=== PATIENT | male | born 1950 | race Caucasian/White ===

== ENCOUNTER 2016-03-16 18:38 | Inpatient (IN) | payer MEDICARE, OTHER ==
[2016-03-16] MEDS ORDERED: ACETAMINOPHEN IV (For NPO) 1,000 MG in EMPTY BAG 1 BAG IVPB STA (19:07)
[2016-03-16] MEDS ORDERED: IPRATROPIUM-ALBUTEROL 3 ML NEB INHALATION STA (19:08)
[2016-03-16] MEDS ORDERED: SODIUM CHLORIDE 0.9% 1,000 ML IV STA ×2 (19:08→20:49)
--- NOTE | 2016-03-16 19:10 | ED ---
General Adult HPI - General Chief complaint: Shortness of Breath Stated complaint: ALBA Time Seen by Provider: 03/16/16 18:53 Source: patient, EMS, RN notes reviewed Mode of arrival: EMS Limitations: no limitations - History of Present Illness Initial comments: Patient is a pleasant 66-year-old male presenting to the emergency department with difficulty in breathing. Symptoms have progressed over a couple of days. Patient has had subjective fevers. Patient has had occasional cough. No chest pain. Patient denies history of chronic lung problems. No leg pain or leg swelling. - Related Data Home Medications Medication Instructions Recorded Confirmed Acetaminophen Tab [Tylenol Tab] 650 mg PO Q4H PRN 03/16/16 03/16/16 Albuterol Nebulized [Ventolin 2.5 mg INHALATION Q4H PRN 03/16/16 03/16/16 Nebulized] Aspirin EC [Ecotrin Low Dose] 81 mg PO HS 03/16/16 03/16/16 Bisacodyl [Dulcolax] 10 mg RECTAL DAILY PRN 03/16/16 03/16/16 DULoxetine HCL [Cymbalta] 30 mg PO DAILY 03/16/16 03/16/16 Diclofenac Sodium [Voltaren Gel] 2 gram TOPICAL BID 03/16/16 03/16/16 Docusate [Colace] 100 mg PO HS 03/16/16 03/16/16 Fluticasone Nasal [place] [Flonase 1 spray EA NOSTRIL BID 03/16/16 03/16/16 Nasal [place]] Furosemide [Lasix] 80 mg PO BID 03/16/16 03/16/16 Gabapentin [Neurontin] 900 mg PO Q8H 03/16/16 03/16/16 Isosorbide Mononitrate ER [Imdur] 30 mg PO DAILY 03/16/16 03/16/16 Ketoconazole 2% Shampoo [Nizoral] 1 applic TOPICAL MOTH 03/16/16 03/16/16 Lactulose 20 gm PO DAILY 03/16/16 03/16/16 Mag Hydrox/Al Hydrox/Simeth 30 ml PO HS 03/16/16 03/16/16 [Maalox] Mag Hydrox/Al Hydrox/Simeth 30 ml PO PC-TID PRN 03/16/16 03/16/16 [Maalox] Magnesium Hydroxide [Milk of 2,400 mg PO DAILY PRN 03/16/16 03/16/16 Magnesia] Melatonin 6 mg PO HS 03/16/16 03/16/16 Metoprolol Succinate (ER) [Toprol 50 mg PO DAILY 03/16/16 03/16/16 Xl] [place]-3 Fatty Acids/Fish Oil [Fish 2 cap PO BID 03/16/16 03/16/16 Oil 1,000 mg Softgel] Omeprazole [PriLOSEC] 20 mg PO DAILY 03/16/16 03/16/16 PARoxetine [Paxil] 10 mg PO DAILY 03/16/16 03/16/16 Potassium Chloride ER [K-Dur 10] 10 meq PO DAILY 03/16/16 03/16/16 Pravastatin Sodium [Pravachol] 40 mg PO HS 03/16/16 03/16/16 Sennosides/Docusate Sodium 2 tab PO HS 03/16/16 03/16/16 [Docusate Sodium-Senna Tablet] Simethicone [Gas-X] 250 mg PO HS 03/16/16 03/16/16 Tamsulosin HCl [Flomax] 0.4 mg PO DAILY 03/16/16 03/16/16 amLODIPine [Norvasc] 10 mg PO DAILY 03/16/16 03/16/16 clonazePAM [KlonoPIN] 0.5 mg PO HS 03/16/16 03/16/16 hydrALAZINE HCL [Apresoline] 50 mg PO Q8H 03/16/16 03/16/16 levETIRAcetam [Keppra] 250 mg PO Q8H 03/16/16 03/16/16 oxyCODONE-APAP 7.5-325MG [Percocet 1 tab PO Q6HR 03/16/16 03/16/16 7.5-325 mg] predniSONE [Deltasone] 20 mg PO HS 03/16/16 03/16/16 Allergies Allergy/AdvReac Type Severity Reaction Status Date / Time No Known Allergies Allergy Verified 03/16/16 19:30 Review of Systems ROS Statement: Those systems with pertinent positive or pertinent negative responses have been documented in the HPI. ROS Other: All systems not noted in ROS Statement are negative. Constitutional: Reports: fever, chills Eyes: Denies: eye pain ENT: Denies: ear pain Respiratory: Reports: cough, dyspnea Cardiovascular: Denies: chest pain Endocrine: Reports: fatigue Gastrointestinal: Denies: abdominal pain Genitourinary: Denies: dysuria Musculoskeletal: Denies: back pain Skin: Denies: rash Neurological: Denies: headache Past Medical History Past Medical History: COPD, CVA/TIA, Hyperlipidemia, Hypertension, Osteoarthritis (OA) Additional Past Medical History / Comment(s): right sided weakness Past Surgical History: Unable to Obtain Past Psychological History: Depression Smoking Status: Former smoker Past Alcohol Use History: None Reported Past Drug Use History: None Reported General Exam Limitations: no limitations General appearance: alert, in no apparent distress Head exam: Present: atraumatic Eye exam: Present: normal appearance, PERRL ENT exam: Present: mucous membranes dry Neck exam: Present: normal inspection Respiratory exam: Present: rales Cardiovascular Exam: Present: tachycardia GI/Abdominal exam: Present: soft. Absent: tenderness Extremities exam: Present: normal inspection. Absent: pedal edema, calf tenderness Neurological exam: Present: alert, other (Right hemiparesis, chronic from previous stroke per patient.) Psychiatric exam: Present: normal affect, normal mood Skin exam: Absent: rash Course Vital Signs 03/16/16 03/16/16 03/16/16 18:39 19:15 19:45 Temperature 100.0 F H Pulse Rate 108 H 99 102 H Respiratory 26 H 16 Rate Blood Pressure 146/87 144/77 140/76 O2 Sat by Pulse 88 L 93 L 93 L Oximetry 03/16/16 03/16/16 19:59 20:15 Temperature Pulse Rate 93 88 Respiratory Rate Blood Pressure 128/72 O2 Sat by Pulse 92 L Oximetry EKG Findings - EKG Comments: EKG Findings:: Sinus rhythm with a rate of 109. VA 226. QRS 114. QT 384. QTC 513. Left axis. Incomplete left bundle-branch block. Left ventricular hypertrophy. Nonspecific ST-T. Medical Decision Making - Medical Decision Making Patient reexamined and resting comfortably in bed. No obvious source of infection identified. Patient will be covered with antibiotics for possible aspiration pneumonia not visualized on chest x-ray today. Patient will provide IV fluids for dehydration and potassium replacement. Discussed in detail with practitioner Ave, who will admit for Dr. Rizo, covering for Dr. baum, who admits for Dr. Beltran. - Lab Data Result diagrams: 03/16/16 19:01 03/16/16 19:01 Lab Results 03/16/16 03/16/16 03/16/16 Range/Units 19: 19: 19:01 WBC 8.6 (3.8-10.6) k/uL RBC 5.17 (4.30-5.90) m/uL Hgb 13.9 (13.0-17.5) gm/dL Hct 42.7 (39.0-53.0) % MCV 82.6 (80.0-100.0) fL MCH 26.9 (25.0-35.0) pg MCHC 32.6 (31.0-37.0) g/dL RDW 13.8 (11.5-15.5) % Plt Count 294 (150-450) k/uL Neutrophils % 88 % Lymphocytes % 5 % Monocytes % 6 % Eosinophils % 0 % Basophils % 0 % Neutrophils # 7.6 (1.3-7.7) k/uL Lymphocytes # 0.4 L (1.0-4.8) k/uL Monocytes # 0.5 (0-1.0) k/uL Eosinophils # 0.0 (0-0.7) k/uL Basophils # 0.0 (0-0.2) k/uL PT (9.0-12.0) sec INR (<1.1) APTT (22.0-30.0) sec Sodium 141 (137-145) mmol/L Potassium 2.8 L* (3.5-5.1) mmol/L Chloride 87 L (98-107) mmol/L Carbon Dioxide 35 H (22-30) mmol/L Anion Gap 19 mmol/L BUN 78 H (9-20) mg/dL Creatinine 2.00 H (0.66-1.25) mg/dL Est GFR (MDRD) Af Amer 40 (>60 ml/min/1.73 sqM) Est GFR (MDRD) Non-Af 33 (>60 ml/min/1.73 sqM) Glucose 160 H (74-99) mg/dL Plasma Lactic Acid Ben (0.7-2.0) mmol/L Calcium 8.7 (8.4-10.2) mg/dL Total Bilirubin 0.9 (0.2-1.3) mg/dL AST 19 (17-59) U/L ALT 20 L (21-72) U/L Alkaline Phosphatase 87 (38-126) U/L Total Creatine Kinase 50 L (55-170) U/L CK-MB (CK-2) 0.3 (0.0-2.4) ng/mL CK-MB (CK-2) Rel Index 0.6 Troponin I 0.045 H* (0.000-0.034) ng/mL NT-Pro-B Natriuret Pep pg/mL Total Protein 7.3 (6.3-8.2) g/dL Albumin 4.0 (3.5-5.0) g/dL Urine Color Urine Appearance (Clear) Urine pH (5.0-8.0) Ur Specific [place] (1.001-1.035) Urine Protein (Negative) Urine Glucose (UA) (Negative) Urine Ketones (Negative) Urine Blood (Negative) Urine Nitrate (Negative) Urine Bilirubin (Negative) Urine Urobilinogen (<2.0) mg/dL Ur Leukocyte Esterase (Negative) 03/16/16 03/16/16 03/16/16 Range/Units 19:01 19:01 19:01 WBC (3.8-10.6) k/uL RBC (4.30-5.90) m/uL Hgb (13.0-17.5) gm/dL Hct (39.0-53.0) % MCV (80.0-100.0) fL MCH (25.0-35.0) pg MCHC (31.0-37.0) g/dL RDW (11.5-15.5) % Plt Count (150-450) k/uL Neutrophils % % Lymphocytes % % Monocytes % % Eosinophils % % Basophils % % Neutrophils # (1.3-7.7) k/uL Lymphocytes # (1.0-4.8) k/uL Monocytes # (0-1.0) k/uL Eosinophils # (0-0.7) k/uL Basophils # (0-0.2) k/uL PT 10.2 (9.0-12.0) sec INR 1.0 (<1.1) APTT 23.9 (22.0-30.0) sec Sodium (137-145) mmol/L Potassium (3.5-5.1) mmol/L Chloride (98-107) mmol/L Carbon Dioxide (22-30) mmol/L Anion Gap mmol/L BUN (9-20) mg/dL Creatinine (0.66-1.25) mg/dL Est GFR (MDRD) Af Amer (>60 ml/min/1.73 sqM) Est GFR (MDRD) Non-Af (>60 ml/min/1.73 sqM) Glucose (74-99) mg/dL Plasma Lactic Acid Ben 1.4 (0.7-2.0) mmol/L Calcium (8.4-10.2) mg/dL Total Bilirubin (0.2-1.3) mg/dL AST (17-59) U/L ALT (21-72) U/L Alkaline Phosphatase (38-126) U/L Total Creatine Kinase (55-170) U/L CK-MB (CK-2) (0.0-2.4) ng/mL CK-MB (CK-2) Rel Index Troponin I (0.000-0.034) ng/mL NT-Pro-B Natriuret Pep pg/mL Total Protein (6.3-8.2) g/dL Albumin (3.5-5.0) g/dL Urine Color Yellow Urine Appearance Clear (Clear) Urine pH 6.0 (5.0-8.0) Ur Specific [place] 1.013 (1.001-1.035) Urine Protein Trace H (Negative) Urine Glucose (UA) Negative (Negative) Urine Ketones Negative (Negative) Urine Blood Negative (Negative) Urine Nitrate Negative (Negative) Urine Bilirubin Negative (Negative) Urine Urobilinogen <2.0 (<2.0) mg/dL Ur Leukocyte Esterase Negative (Negative) 03/16/16 Range/Units 19:01 WBC (3.8-10.6) k/uL RBC (4.30-5.90) m/uL Hgb (13.0-17.5) gm/dL Hct (39.0-53.0) % MCV (80.0-100.0) fL MCH (25.0-35.0) pg MCHC (31.0-37.0) g/dL RDW (11.5-15.5) % Plt Count (150-450) k/uL Neutrophils % % Lymphocytes % % Monocytes % % Eosinophils % % Basophils % % Neutrophils # (1.3-7.7) k/uL Lymphocytes # (1.0-4.8) k/uL Monocytes # (0-1.0) k/uL Eosinophils # (0-0.7) k/uL Basophils # (0-0.2) k/uL PT (9.0-12.0) sec INR (<1.1) APTT (22.0-30.0) sec Sodium (137-145) mmol/L Potassium (3.5-5.1) mmol/L Chloride (98-107) mmol/L Carbon Dioxide (22-30) mmol/L Anion Gap mmol/L BUN (9-20) mg/dL Creatinine (0.66-1.25) mg/dL Est GFR (MDRD) Af Amer (>60 ml/min/1.73 sqM) Est GFR (MDRD) Non-Af (>60 ml/min/1.73 sqM) Glucose (74-99) mg/dL Plasma Lactic Acid Ben (0.7-2.0) mmol/L Calcium (8.4-10.2) mg/dL Total Bilirubin (0.2-1.3) mg/dL AST (17-59) U/L ALT (21-72) U/L Alkaline Phosphatase (38-126) U/L Total Creatine Kinase (55-170) U/L CK-MB (CK-2) (0.0-2.4) ng/mL CK-MB (CK-2) Rel Index Troponin I (0.000-0.034) ng/mL NT-Pro-B Natriuret Pep 1120 pg/mL Total Protein (6.3-8.2) g/dL Albumin (3.5-5.0) g/dL Urine Color Urine Appearance (Clear) Urine pH (5.0-8.0) Ur Specific [place] (1.001-1.035) Urine Protein (Negative) Urine Glucose (UA) (Negative) Urine Ketones (Negative) Urine Blood (Negative) Urine Nitrate (Negative) Urine Bilirubin (Negative) Urine Urobilinogen (<2.0) mg/dL Ur Leukocyte Esterase (Negative) - Radiology Data Radiology results: image reviewed (Chest x-ray shows no acute process.) Disposition Clinical Impression: Dyspnea, Dehydration, Hypokalemia Disposition: ADMITTED IP TO THIS HOSP
[2016-03-16 19:33] LABS: Calcium 8.7 mg/dL (8.4-10.2); Total Bilirubin 0.9 mg/dL (0.2-1.3); Total Protein 7.3 g/dL (6.3-8.2)
[2016-03-16 19:36] LABS: Potassium 2.8 mmol/L (3.5-5.1)
[2016-03-16] MEDS ORDERED: POTASSIUM CHLORIDE ER 20 MEQ TAB.ER PO STA (19:36)
[2016-03-16 19:38] LABS: Partial Thromboplastin Time 23.9 sec (22.0-30.0); Prothrombin Time 10.2 sec (9.0-12.0)
[2016-03-16 19:46] LABS: Appearance,Urine Clear (Clear); Bilirubin,Urine Negative (Negative); Glucose,Urine (UA) Negative (Negative); Ketones,Urine Negative (Negative); Leukocyte Esterase,Urine Negative (Negative); Nitrite,Urine Negative (Negative); Protein,Urine Trace (Negative); Specific Gravity,Urine 1.013 (1.001-1.035); UA Billing (MACRO vs. MICRO) CHEM; Urobilinogen,Urine <2.0 mg/dL (<2.0)
[2016-03-16 19:49] LABS: Creatine Kinase MB 0.3 ng/mL (0.0-2.4)
--- NOTE | 2016-03-16 19:49 | XR ---
EXAMINATION TYPE: XR chest 1V portable-upright DATE OF EXAM: 03/16/2016 7:46 PM COMPARISON: NONE HISTORY: Fever cough and congestion TECHNIQUE: Single frontal view of the chest is obtained. FINDINGS: There is no focal air space opacity, pleural effusion, or pneumothorax seen. The cardiac silhouette size is within normal limits. The osseous structures are intact. IMPRESSION: No acute process.
[2016-03-16 19:51] LABS: Basophils % (A) 0 %; CH 26.5; CHCM 32.2; Eosinophils % (A) 0 %; HCT 42.7 % (39.0-53.0); HDW 2.63; HGB 13.9 gm/dL (13.0-17.5); Luc # (Auto) 0.16; Luc % (Auto) 2; Lymphocytes # (A) 0.4 k/uL (1.0-4.8); Lymphocytes % (A) 5 %; MCH 26.9 pg (25.0-35.0); MCHC 32.6 g/dL (31.0-37.0); MCV 82.6 fL (80.0-100.0); Monocytes # (A) 0.5 k/uL (0-1.0); Monocytes % (A) 6 %; Neutrophils # (A) 7.6 k/uL (1.3-7.7); Neutrophils % (A) 88 %; RBC 5.17 m/uL (4.30-5.90); RDW 13.8 % (11.5-15.5); WBC 8.6 k/uL (3.8-10.6); WBC (Perox) 8.54
[2016-03-16] MEDS ORDERED: SODIUM CHLORIDE 0.9% 500 ML IV STA (19:51)
[2016-03-16] MEDS: POTASSIUM CHLORIDE 10 MEQ, LIDOCAINE 2% INJ 10 MG in SODIUM CHLORIDE 0.9% 100 ML IVPB SCH ×2 (19:53→23:35)
[2016-03-16 19:57] LABS: Troponin I 0.045 ng/mL (0.000-0.034)
[2016-03-16] MEDS ORDERED: IPRATROPIUM-ALBUTEROL 3 ML NEB INHALATION PRN (20:48)
[2016-03-16] MEDS ORDERED: LEVOFLOXACIN 500MG-D5W PMX 500 MG in DEXTROSE/WATER 1 100ML.BAG IVPB STA (20:49)
[2016-03-16] MEDS ORDERED: NALOXONE 0.4 MG/ML 1 ML VIAL IV PRN (20:50)
[2016-03-16] MEDS ORDERED: ONDANSETRON 4 MG/2 ML VIAL IVP STA (21:15)
[2016-03-16] MEDS ORDERED: ONDANSETRON 4 MG/2 ML VIAL IVP PRN (22:59)
[2016-03-16] MEDS ORDERED: ASPIRIN 81 MG CHEW PO SCH (23:00)
[2016-03-16] MEDS ORDERED: predniSONE 20 MG TAB PO SCH (23:00)
[2016-03-16] MEDS ORDERED: FUROSEMIDE 10 MG/ML 2 ML VIAL IV ONE (23:03)
[2016-03-16] MEDS ORDERED: Magnesium Replacement Protocol 1 EACH MISC MISCELLANE PRN (23:04)
[2016-03-16] MEDS ORDERED: ALPRAZolam 0.25 MG TAB PO PRN (23:20)
[2016-03-16] MEDS ORDERED: MAGNESIUM HYDROXIDE 2,400 MG/10 ML CUP PO PRN (23:20)
[2016-03-16] MEDS ORDERED: HYDROmorphone 1 MG/ML 1 ML SYRINGE IVP PRN (23:20)
[2016-03-16] MEDS: clonazePAM 0.5 MG TAB PO SCH (23:34)
[2016-03-17] MEDS: PRAVASTATIN SODIUM 40 MG TAB PO SCH ×2 (00:17→21:34)
[2016-03-17] MEDS: MELATONIN 3 MG TABLET PO SCH ×2 (00:17→21:36)
[2016-03-17] MEDS: PIPERACILLIN-TAZOBACTAM 3.375 GM in DEXTROSE/WATER 1 50ML.BAG IVPB SCH ×2 (00:18→08:12)
[2016-03-17] MEDS: methylPREDNISolone SOD SUCCI 125 MG/2 ML VIAL IV SCH ×2 (00:18→05:18)
[2016-03-17] MEDS: levETIRAcetam 250 MG TAB PO SCH ×4 (00:18→21:36)
[2016-03-17] MEDS: KETOCONAZOLE 2% SHAMPOO 1 APPLIC/ML TOPICAL SCH (00:19)
[2016-03-17] MEDS: hydrALAZINE HCL 50 MG TAB PO SCH ×4 (00:19→21:36)
[2016-03-17] MEDS: MAG HYDROX/AL HYDROX/SIMETH 30 ML CUP PO SCH ×2 (00:19→21:41)
[2016-03-17] MEDS ORDERED: Potassium Replacement Protocol 1 EACH MISC MISCELLANE PRN (00:26)
[2016-03-17 01:01] LABS: Creatine Kinase MB 0.4 ng/mL (0.0-2.4)
[2016-03-17 01:04] LABS: Troponin I 0.04 ng/mL (0.000-0.034)
[2016-03-17] MEDS: 0.9% NACL WITH KCL 20 MEQ/L 1,000 ML IV SCH ×3 (02:40→21:38)
[2016-03-17] MEDS: POTASSIUM CHLORIDE ER 20 MEQ TAB.ER PO SCH ×2 (05:16→06:08)
[2016-03-17 06:18] LABS: Glucose,Whole Blood 183 mg/dL (75-99)
[2016-03-17] MEDS: INSULIN LISPRO (humaLOG) 300 UNIT/3 ML VIAL SQ SCH ×4 (06:23→21:35)
[2016-03-17] MEDS: ACETAMINOPHEN TAB 325 MG TAB PO PRN ×2 (06:37→21:41)
[2016-03-17 07:28] LABS: Basophils % (A) 0 %; CH 25.9; CHCM 30.3; Eosinophils % (A) 0 %; HCT 42.3 % (39.0-53.0); HDW 2.48; Hypochromasia Moderate; Luc # (Auto) 0.04; Luc % (Auto) 1; Lymphocytes # (A) 0.4 k/uL (1.0-4.8); Lymphocytes % (A) 7 %; MCH 26.3 pg (25.0-35.0); MCHC 30.6 g/dL (31.0-37.0); MCV 85.8 fL (80.0-100.0); Mean Platelet Volume 7.6; Monocytes # (A) 0.2 k/uL (0-1.0); Monocytes % (A) 4 %; Neutrophils # (A) 4.5 k/uL (1.3-7.7); Neutrophils % (A) 88 %; RBC 4.93 m/uL (4.30-5.90); RDW 13.6 % (11.5-15.5); WBC 5.1 k/uL (3.8-10.6); WBC (Perox) 5.29
[2016-03-17 07:53] LABS: Calcium 8.6 mg/dL (8.4-10.2); Magnesium 3.1 mg/dL (1.6-2.3); Potassium 3.5 mmol/L (3.5-5.1)
[2016-03-17] MEDS: FORMOTEROL FUMARATE 20 MCG/2 ML NEBU INHALATION SCH ×2 (08:00→20:04)
[2016-03-17] MEDS: LEVALBUTEROL NEB (CONC) 1.25 MG/0.5 ML AMP INHALATION SCH ×4 (08:00→20:04)
[2016-03-17] MEDS: BUDESONIDE 1 MG/2 ML NEBU INHALATION SCH ×2 (08:00→20:04)
[2016-03-17] MEDS: IPRATROPIUM 0.5 MG/2.5 ML NEBU INHALATION SCH ×4 (08:00→20:04)
[2016-03-17 08:11] LABS: Creatine Kinase MB 0.2 ng/mL (0.0-2.4); Troponin I 0.025 ng/mL (0.000-0.034)
[2016-03-17] MEDS: amLODIPine 10 MG TAB PO SCH (08:11)
[2016-03-17] MEDS: PARoxetine 10 MG TAB PO SCH (08:11)
[2016-03-17] MEDS: ISOSORBIDE MONONITRATE ER 30 MG TAB.ER.24H PO SCH (08:11)
[2016-03-17] MEDS: DULoxetine HCL 30 MG CAPSULE.DR PO SCH (08:11)
[2016-03-17] MEDS: TAMSULOSIN 0.4 MG CAP.ER.24H PO SCH (08:11)
[2016-03-17] MEDS: PANTOPRAZOLE 40 MG/10 ML VIAL IVP SCH ×2 (08:12→21:34)
[2016-03-17] MEDS: LACTULOSE 20 GM/30 ML CUP PO SCH (08:12)
[2016-03-17] MEDS: METOPROLOL SUCCINATE (ER) 50 MG TAB.ER.24H PO SCH (08:12)
[2016-03-17] MEDS: FLUTICASONE 50MCG/SPRAY NASAL 16GM EA NOSTRIL SCH ×2 (08:12→21:33)
[2016-03-17] MEDS: DICLOFENAC SODIUM GEL 100 GM TUBE TOPICAL SCH ×2 (08:13→21:33)
[2016-03-17 08:58] LABS: ABG Base Excess 10.2 mmol/L; ABG HCO3 34 mmol/L (21-25); ABG PCO2 40 mmHg (35-45); ABG PH 7.53 (7.35-7.45); ABG PO2 64 mmHg (83-108); ABG TCO2 35 mmol/L (19-24)
[2016-03-17] MEDS ORDERED: FUROSEMIDE 10 MG/ML 4 ML VIAL IV SCH (09:00)
--- NOTE | 2016-03-17 09:22 | XR ---
EXAMINATION TYPE: XR chest 1V portable DATE OF EXAM: 03/17/2016 7:01 AM COMPARISON: 03/16/2016 HISTORY: Shortness of breath TECHNIQUE: Single frontal view of the chest is obtained. FINDINGS: Interstitial process seen. Calcification in the left suprahilar mass is stable may be rela modetso to lymph node or vascular. Heart is enlarged. Underlying COPD noted. IMPRESSION: 1. Correlate for mild venous congestion or interstitial pneumonitis.
--- NOTE | 2016-03-17 11:28 | P.CNPUL ---
History of Present Illness Consult date: 03/17/16 Reason for consult: dyspnea, hypoxemia, abnormal CXR/CT, other Chief complaint: Shortness of breath History of present illness: This is a 66-year-old male presenting to the emergency department with complaints of difficulty breathing. Apparently going on for a couple days maybe 2 or 3 prior to admission. He also apparently had some elevated temperature although his temperature was never actually measured. He did have some occasional cough. Not really bringing up any phlegm. No chest pain. No nausea vomiting or diarrhea. The patient was seen in the emergency room admitted with a diagnosis of shortness of breath. This morning apparently an 18 was called. His chest x-ray compared to yesterday shows worsening fluid overload. A blood gas was done. He was placed on higher amounts of oxygen and I was notified. I asked the nurses to place him on BiPAP at 10 and 5 and 50%. Afterwards, his breathing settle down. I did ask the nurses to maintain his saturations in the mid to high 80s as he appears to be a CO2 retainer. Is not a really good historian the fact that he is wearing his mother BiPAP mask made it more difficult to glean any history from him. Anyway he is feeling much improved and the nurses covering him thought that he was feeling and looking much better. Review of Systems A 12 point review of system is positive for shortness of breath occasional cough without much phlegm production and apparently some slight temperature elevation although he never actually measured his temperature at home. Past Medical History Past Medical History: Heart Failure, COPD, CVA/TIA, Hyperlipidemia, Hypertension , Osteoarthritis (OA) Additional Past Medical History / Comment(s): right sided weakness History of Any Multi-Drug Resistant Organisms: None Reported Past Surgical History: Unable to Obtain Past Anesthesia/Blood Transfusion Reactions: No Reported Reaction Past Psychological History: Depression Smoking Status: Former smoker Past Alcohol Use History: None Reported Past Drug Use History: None Reported - Past Family History Father History Unknown: Yes Mother History Unknown: Yes Medications and Allergies Home Medications Medication Instructions Recorded Confirmed Type Acetaminophen Tab [Tylenol Tab] 650 mg PO Q4H PRN 03/16/16 03/16/16 History Albuterol Nebulized [Ventolin 2.5 mg INHALATION Q4H PRN 03/16/16 03/16/16 History Nebulized] Aspirin EC [Ecotrin Low Dose] 81 mg PO HS 03/16/16 03/16/16 History Bisacodyl [Dulcolax] 10 mg RECTAL DAILY PRN 03/16/16 03/16/16 History DULoxetine HCL [Cymbalta] 30 mg PO DAILY 03/16/16 03/16/16 History Diclofenac Sodium [Voltaren Gel] 2 gram TOPICAL BID 03/16/16 03/16/16 History Docusate [Colace] 100 mg PO HS 03/16/16 03/16/16 History Fluticasone Nasal [place] [Flonase 1 spray EA NOSTRIL BID 03/16/16 03/16/16 History Nasal [place]] Furosemide [Lasix] 80 mg PO BID 03/16/16 03/16/16 History Gabapentin [Neurontin] 900 mg PO Q8H 03/16/16 03/16/16 History Isosorbide Mononitrate ER [Imdur] 30 mg PO DAILY 03/16/16 03/16/16 History Ketoconazole 2% Shampoo [Nizoral] 1 applic TOPICAL MOTH 03/16/16 03/16/16 History Lactulose 20 gm PO DAILY 03/16/16 03/16/16 History Mag Hydrox/Al Hydrox/Simeth 30 ml PO HS 03/16/16 03/16/16 History [Maalox] Mag Hydrox/Al Hydrox/Simeth 30 ml PO PC-TID PRN 03/16/16 03/16/16 History [Maalox] Magnesium Hydroxide [Milk of 2,400 mg PO DAILY PRN 03/16/16 03/16/16 History Magnesia] Melatonin 6 mg PO HS 03/16/16 03/16/16 History Metoprolol Succinate (ER) [Toprol 50 mg PO DAILY 03/16/16 03/16/16 History Xl] [place]-3 Fatty Acids/Fish Oil [Fish 2 cap PO BID 03/16/16 03/16/16 History Oil 1,000 mg Softgel] Omeprazole [PriLOSEC] 20 mg PO DAILY 03/16/16 03/16/16 History PARoxetine [Paxil] 10 mg PO DAILY 03/16/16 03/16/16 History Potassium Chloride ER [K-Dur 10] 10 meq PO DAILY 03/16/16 03/16/16 History Pravastatin Sodium [Pravachol] 40 mg PO HS 03/16/16 03/16/16 History Sennosides/Docusate Sodium 2 tab PO 03/16/16 03/16/16 History [Docusate Sodium-Senna Tablet] Simethicone [Gas-X] 250 mg PO 03/16/16 03/16/16 History Tamsulosin HCl [Flomax] 0.4 mg PO DAILY 03/16/16 03/16/16 History amLODIPine [Norvasc] 10 mg PO DAILY 03/16/16 03/16/16 History clonazePAM [KlonoPIN] 0.5 mg PO 03/16/16 03/16/16 History hydrALAZINE HCL [Apresoline] 50 mg PO Q8H 03/16/16 03/16/16 History levETIRAcetam [Keppra] 250 mg PO Q8H 03/16/16 03/16/16 History oxyCODONE-APAP 7.5-325MG [Percocet 1 tab PO Q6HR 03/16/16 03/16/16 History 7.5-325 mg] predniSONE [Deltasone] 20 mg PO 03/16/16 03/16/16 History Allergies Allergy/AdvReac Type Severity Reaction Status Date / Time No Known Allergies Allergy Verified 03/16/16 19:30 Physical Exam Osteopathic Statement: *. No significant issues noted on an osteopathic structural exam other than those noted in the History and Physical/Consult. Vitals: Vital Signs Temp Pulse Pulse Resp BP BP Pulse Ox 03/17/16 08:24 86 03/17/16 08:12 84 03/17/16 08:11 82 03/17/16 08:01 88 03/17/16 08:00 97.6 F 85 20 128/81 90 L 03/17/16 03:14 99.8 F H 89 19 127/72 91 L 03/17/16 00:00 97.8 F 94 24 139/73 93 L 03/16/16 23:27 72 03/16/16 23:13 72 03/16/16 21:19 99.0 F 86 20 152/75 95 03/16/16 21:09 99.2 F 19 148/82 94 L Intake and Output 03/16/16 03/17/16 03/17/16 22:59 06:59 14:59 Intake Total 1290 Output Total 275 600 Balance -275 690 Intake: Intake, IV Titration 550 Amount Levofloxacin 500Mg-D5w 400 Pmx 500 mg In Dextrose/ Water 1 100ml.bag @ 100 mls/hr IVPB Q24H [facility] Rx#: [id number] Piperacillin-Tazobactam 3 50 .375 gm In Dextrose/Water 1 50ml.bag @ 12.5 mls/hr IVPB Q8HR [facility] Rx#: [id number] Potassium Chloride 10 meq 100 Lidocaine 2% Inj 10 mg In Sodium Chloride 0.9% 100 ml @ 100 mls/hr IVPB Q1HR [facility] Rx#:[id number] Oral 740 Output: Urine 275 600 Other: Voiding Method Urinal Urinal # Voids 4 1 Weight 126 kg 127.5 kg No acute distress, oriented 3. Difficult to speak to because he's got the BiPAP in place. HEENT examination is grossly unremarkable. I cannot get a look his oral cavity because of BiPAP mask is in place. Neck supple. Full range of motion. No adenopathy. No thyromegaly. Cardiovascular examination reveals regular rhythm rate. Heart sounds are distant. S1-S2 normal. Lungs reveal some bibasilar crackles. No wheezes or rhonchi. Abdomen soft bowel sounds are heard. Extremities are intact. Results - Laboratory Findings CBC and BMP: 03/17/16 06:59 03/17/16 06:59 ABG ABG pH 7.53 (7.35-7.45) H 03/17/16 08:49 ABG pCO2 40 mmHg (35-45) 03/17/16 08:49 ABG pO2 64 mmHg (83-108) L 03/17/16 08:49 ABG O2 Saturation 94.0 % (94-97) 03/17/16 08:49 PT/INR, D-dimer PT 10.2 sec (9.0-12.0) 03/16/16 19:01 INR 1.0 (<1.1) 03/16/16 19:01 Abnormal lab findings: Abnormal Labs 03/16/16 03/16/16 03/17/16 23:56 23:56 03:01 MCHC Lymphocytes # ABG pH ABG pO2 ABG HCO3 ABG Total CO2 Potassium 3.2 L Chloride Carbon Dioxide BUN Creatinine Glucose POC Glucose (mg/dL) Magnesium 3.3 H Total Creatine Kinase 51 L Troponin I 0.040 H* 03/17/16 03/17/16 03/17/16 06:16 06:59 06:59 MCHC Lymphocytes # ABG pH ABG pO2 ABG HCO3 ABG Total CO2 Potassium Chloride 95 L Carbon Dioxide 31 H BUN 65 H Creatinine 1.69 H Glucose 201 H POC Glucose (mg/dL) 183 H Magnesium 3.1 H Total Creatine Kinase 48 L Troponin I 03/17/16 03/17/16 06:59 08:49 MCHC 30.6 L Lymphocytes # 0.4 L ABG pH 7.53 H ABG pO2 64 L ABG HCO3 34 H ABG Total CO2 35 H Potassium Chloride Carbon Dioxide BUN Creatinine Glucose POC Glucose (mg/dL) Magnesium Total Creatine Kinase Troponin I - Diagnostic Findings Chest x-ray: image reviewed (There is the presence of mild heart failure) Assessment and Plan (1) CHF (congestive heart failure) Status: Acute (2) COPD (chronic obstructive pulmonary disease) Status: Acute (3) CVA (cerebral vascular accident) Status: Acute (4) Hyperlipidemia Status: Acute (5) Hypertension Status: Acute (6) Dyspnea Status: Acute Plan: Plan dated 03/17/2016 The patient 58 the patient did receive some Lasix is morning IV push. In addition we place him on oxygen and actually replace the oxygen with BiPAP. He is BiPAP settings included an IPAP of 10 and EPAP of 5 with enough oxygen bled in to maintain sats in the mid to high 80s. Is a CO2 retainer. His medications and other labs and so forth will be reviewed. His x-rays have been reviewed. Additional recommendations suggestions are forthcoming. He appears much more stable Time with Patient: Greater than 30
[2016-03-17 12:18] LABS: Glucose,Whole Blood 191 mg/dL (75-99)
--- NOTE | 2016-03-17 12:27 | HP ---
DATE OF ADMISSION: CHIEF COMPLAINT: Shortness of breath and vomiting. HISTORY OF PRESENT ILLNESS: This 66-year-old gentleman with a past medical history of multiple medical problems including COPD, CVA, TIA, hypertension, hyperlipidemia, DJD, right sided weakness, history of depression [facility] is not feeling well over the past several days. Patient apparently had some nausea and vomiting. The patient also had fevers. Patient also had shortness of breath. The patient was taken to [facility] and admitted for further evaluation and treatment. A chest x-ray was done, which showed no acute process. There is no history of any trauma. No history of headache, loss of consciousness or seizures. Patient admitted for further evaluation and treatment. The possibility of aspiration is suspected and the patient is also found to be dehydrated with some renal failure also. The creatinine was found to be 2 and the potassium was 2.8. Potassium was replaced. Troponin was indeterminate at 0.045. PAST MEDICAL HISTORY: History of COPD, history of CVA, TIA, hypertension, hyperlipidemia, history of DJD, right-sided weakness, depression. Medications prior to admission include home medications are: 1. Toprol XL 50 mg daily. 2. Colace 100 mg daily. 3. Cymbalta 30 mg daily. 4. Melatonin 6 mg daily. 5. Lactulose 20 daily. 6. Ketoconazole 2%. 7. Docusate 2 tablets p.o. q.h.s. 8. Pravachol 40 mg q.h.s. 9. K-Dur 10 mEq p.o. daily. 10. Keppra 250 mg q.8. 11. Apresoline 50 mg q.8. 12. Neurontin 900 mg q.8. 13. Voltaren gel 2 grams b.i.d. 14. Ventolin 2.5 q.4 p.r.n. 15. Percocet 1 tablet q.6. 16. Lasix 80 mg b.i.d. 17. Fish oil 2 tablets p.o. b.i.d. 18. Flonase 1 spray b.i.d. 19. Flomax 0.4 daily. 20. Paxil 10 mg daily. 21. Prilosec 20 mg daily. 22. Maalox 30 mL p.o. q.h.s. 23. Gas-X 250 mg p.o. q.h.s. 24. Imdur 30 mg p.o. daily. 25. Klonopin 0.5 mg q.h.s. 26. Norvasc 10 mg p.o. daily. 27. Ecotrin 81 mg q.h.s. 28. Deltasone 20 mg q.h.s. 29. Milk of magnesia 2.4 grams p.o. daily p.r.n. 30. Maalox 30 mL t.i.d. p.r.n. 31. Dulcolax 10 mg rectal daily p.r.n. 32. Tylenol 650 q.4 p.r.n. Allergies are none. FAMILY HISTORY: No history of heart disease or strokes in the family. SOCIAL HISTORY: Previous history of smoking. REVIEW OF SYSTEMS: ENT: Diminished hearing, diminished vision. CARDIOVASCULAR: As mentioned earlier. RESPIRATORY: As mentioned earlier. GI: As mentioned earlier. : As mentioned earlier.. NERVOUS SYSTEM: As mentioned earlier. ALLERGY/IMMUNOLOGY: No asthma or hayfever. MUSCULOSKELETAL: As mentioned earlier. HEMATOLOGY/ONCOLOGY: No history of anemia. ENDOCRINE: As mentioned earlier. CONSTITUTIONAL: As mentioned earlier. DERMATOLOGY; Negative. RHEUMATOLOGY: Negative. PSYCHIATRY: As mentioned earlier. PHYSICAL EXAMINATION: The patient is alert and oriented x2. Pulse is 86, blood pressure 152/75, respirations 20, temperature 99 degrees, pulse ox 95% on 5 L, pulse ox was 88% on 15 L HEENT: Conjunctivae normal. Oral mucosa moist. NECK: No jugular venous distention. CARDIOVASCULAR: S1 and S2, muffled. RESPIRATORY: Breath sounds diminished at the bases. Bilateral scattered rhonchi and crackles. also had expiratory wheezing also present. ABDOMEN: Soft, obese, mild distended, discomfort in the epigastrium. No guarding or rigidity. No mass palpable. LEGS: Minimal edema. NERVOUS SYSTEM: Moves all 4 limbs. Significant weakness on the right side. There is diffuse weakness also present. LYMPHATIC: No lymphadenopathy in the neck, axillae or groin. SKIN: No ulcers, rashes or bleeding. JOINTS: No active deforming arthropathy. LABS: CBC within normal limits. Sodium is 141, potassium 2.8 and creatinine is 2. Troponin 0.045. ASSESSMENT: 1. Shortness of breath, possible chronic obstructive pulmonary disease acute exacerbation with bilateral aspiration and aspiration pneumonia early with fever. 2. Hypokalemia, severe. 3. Vomiting , possible acute gastritis. 4. Acute renal failure, possible prerenal with acute tubular necrosis. 5. Obesity with body mass index 41.8. 6. Old right hemiplegia and cerebrovascular accident. 7. History of chronic obstructive pulmonary disease. 8. History of cerebrovascular accident, transient ischemic attack. 9. Hypertension. 10. Hyperlipidemia. 11. Degenerative joint disease. 12. History of depression. 13. Remote history of nicotine dependence. 14. FULL CODE. 15. Indeterminate troponin of 0.045. RECOMMENDATIONS AND DISCUSSION: In this 66-year-old gentleman who presented with multiple complex medical issues, will monitor the patient closely. Continue the current medications. Continue symptomatic treatment. Will initiate intensive bronchodilators and also empiric antibiotics. Otherwise, symptomatic treatment will be provided for the vomiting. Other than that, monitor creatinine closely. Monitor for . Will obtain cardiology consultation. Guarded prognosis because of multiple complex medical issues. Otherwise, will continue repeat potassium and monitor closely. Further recommendations to follow. MTDD
[2016-03-17 16:57] LABS: Glucose,Whole Blood 159 mg/dL (75-99)
--- NOTE | 2016-03-17 19:32 | PN ---
DATE OF SERVICE: 03/17/2016 This 66-year-old gentleman who wants admitted with shortness of breath, COPD acute exacerbation, also had bilateral aspiration pneumonia. The patient also had some fever. Last night the patient had features of acute respiratory failure. The patient was on BiPAP at this time. Venous congestion was noted. Dr. Mercado is also following the patient closely. PAST MEDICAL HISTORY: Reviewed. Review of systems could not be taken. The patient is still on BiPAP. Current medications are reviewed and include: 1. Tylenol 650 q.6 p.r.n. 2. Maalox. 3. Norvasc 10 mg p.o. daily. 4. Pulmicort 1 mg b.i.d. 5. Klonopin 1.5 mg q.h.s. 6. Voltaren gel topical. 7. Colace 100 mg b.i.d. 8. Cymbalta 30 mg daily. 9. Fluticasone 1 spray b.i.d. 10. Perforomist 20 mcg b.i.d. 11. Lasix 40 mg IV b.i.d. 12. Apresoline 50 mg p.o. q.8. 13. Humalog scale. 14. Imdur 30 mg p.o. daily. 16. Cephulac 20 mg p.o. daily. 17. Xopenex. 18. Keppra. 19. Levaquin. 20. Metoprolol. 21. Narcan. 22. Zofran. 23. Protonix. PHYSICAL EXAMINATION: Patient is alert and oriented x2. Pulse 82, blood pressure 143/80, respirations 17, temperature 97.6, pulse of 90% on 40% BiPAP. BiPAP setting is noted. HEENT: Conjunctivae normal. NECK: No jugular venous distention. CARDIOVASCULAR: S1 and S2, muffled. RESPIRATORY: Breath sounds diminished at the bases. Bilateral scattered rhonchi. Breathing efforts are markedly increased. ABDOMEN: Soft, obese, nontender. LEGS: No edema, no swelling. NERVOUS SYSTEM: Diffusely weak. LABS: CBC within normal limits. ABG is noted. pH of 7.53. Otherwise, the creatinine is 1.69. ASSESSMENT: 1. Shortness of breath possibly congestive heart failure acute exacerbation, ejection fraction unknown. 2. Possible chronic obstructive pulmonary disease acute exacerbation with bilateral aspiration pneumonia with fever, present on admission. 3. Hyperkalemia, severe. 4. Vomiting, possible acute gastritis. 5. Acute renal failure, possible prerenal, with acute tubular necrosis. 6. Obesity body mass index 41.8. 7. Old right hemiplegia with cerebrovascular accident. 8. History of chronic obstructive pulmonary disease. 9. History of cerebrovascular accident, transient ischemic attack. 10. Hypertension. 11. Hyperlipidemia. 12. History of degenerative joint disease. 13. History of depression. 14. Remote history of nicotine dependence. 15. Intermittent troponin of 0.05. 16. FULL CODE. RECOMMENDATIONS AND DISCUSSION: I recommend to continue the current medications, continue with monitoring and symptomatic treatment. Otherwise, at this time I would also recommend cautious diuresis. Otherwise I would also recommend a cardiology consultation and pulmonology, Dr. Mercado is also following the patient closely. Empiric antibiotics. Guarded prognosis because of multiple complex issues. Further recommendations to follow. See orders. MTDD
[2016-03-17 20:46] LABS: Glucose,Whole Blood 154 mg/dL (75-99)
[2016-03-17] MEDS: DOCUSATE 100 MG CAP PO SCH (21:34)
[2016-03-17] MEDS: SIMETHICONE 80 MG CHEWABLE PO SCH (21:34)
[2016-03-17] MEDS: FUROSEMIDE 10 MG/ML 4 ML VIAL IV SCH (21:38)
[2016-03-17] MEDS: LEVOFLOXACIN 500MG-D5W PMX 500 MG in DEXTROSE/WATER 1 100ML.BAG IVPB SCH (21:38)
[2016-03-17] MEDS: SENNOSIDES-DOCUSATE SODIUM 1 EACH TAB PO SCH (21:41)
[2016-03-17] MEDS: clonazePAM 0.5 MG TAB PO SCH (21:41)
[2016-03-18] MEDS: 0.9% NACL WITH KCL 20 MEQ/L 1,000 ML IV SCH (03:27)
[2016-03-18 05:59] LABS: Glucose,Whole Blood 117 mg/dL (75-99)
[2016-03-18] MEDS: INSULIN LISPRO (humaLOG) 300 UNIT/3 ML VIAL SQ SCH ×4 (06:35→21:40)
[2016-03-18] MEDS: hydrALAZINE HCL 50 MG TAB PO SCH ×3 (06:38→22:45)
[2016-03-18] MEDS: levETIRAcetam 250 MG TAB PO SCH ×3 (06:38→22:45)
[2016-03-18 06:51] LABS: Basophils % (A) 0 %; CH 25.9; CHCM 30.3; Eosinophils # (A) 0.1 k/uL (0-0.7); Eosinophils % (A) 1 %; HCT 43.8 % (39.0-53.0); HDW 2.56; HGB 13.5 gm/dL (13.0-17.5); Hypochromasia Moderate; Luc # (Auto) 0.25; Luc % (Auto) 2; Lymphocytes # (A) 0.8 k/uL (1.0-4.8); Lymphocytes % (A) 7 %; MCH 26.4 pg (25.0-35.0); MCHC 30.7 g/dL (31.0-37.0); MCV 85.9 fL (80.0-100.0); Mean Platelet Volume 7.7; Monocytes # (A) 0.8 k/uL (0-1.0); Monocytes % (A) 7 %; Neutrophils # (A) 9.3 k/uL (1.3-7.7); Neutrophils % (A) 83 %; RDW 13.8 % (11.5-15.5); WBC 11.2 k/uL (3.8-10.6); WBC (Perox) 11.12
[2016-03-18 07:02] LABS: Calcium 9.4 mg/dL (8.4-10.2); Potassium 3.1 mmol/L (3.5-5.1)
[2016-03-18] MEDS: DULoxetine HCL 30 MG CAPSULE.DR PO SCH (09:06)
[2016-03-18] MEDS: DICLOFENAC SODIUM GEL 100 GM TUBE TOPICAL SCH ×2 (09:06→20:15)
[2016-03-18] MEDS: FLUTICASONE 50MCG/SPRAY NASAL 16GM EA NOSTRIL SCH ×2 (09:06→20:15)
[2016-03-18] MEDS: FUROSEMIDE 10 MG/ML 4 ML VIAL IV SCH ×2 (09:06→20:15)
[2016-03-18] MEDS: PANTOPRAZOLE 40 MG/10 ML VIAL IVP SCH ×2 (09:07→20:15)
[2016-03-18] MEDS: ISOSORBIDE MONONITRATE ER 30 MG TAB.ER.24H PO SCH (09:07)
[2016-03-18] MEDS: amLODIPine 10 MG TAB PO SCH (09:07)
[2016-03-18] MEDS: ACETAMINOPHEN TAB 325 MG TAB PO PRN (09:08)
[2016-03-18] MEDS: TAMSULOSIN 0.4 MG CAP.ER.24H PO SCH (09:08)
[2016-03-18] MEDS: LACTULOSE 20 GM/30 ML CUP PO SCH (09:08)
[2016-03-18] MEDS: PARoxetine 10 MG TAB PO SCH (09:08)
[2016-03-18] MEDS: METOPROLOL SUCCINATE (ER) 50 MG TAB.ER.24H PO SCH (09:08)
[2016-03-18] MEDS: LEVALBUTEROL NEB (CONC) 1.25 MG/0.5 ML AMP INHALATION SCH ×4 (09:28→19:30)
[2016-03-18] MEDS: BUDESONIDE 1 MG/2 ML NEBU INHALATION SCH ×2 (09:29→19:30)
[2016-03-18] MEDS: FORMOTEROL FUMARATE 20 MCG/2 ML NEBU INHALATION SCH ×2 (09:30→19:30)
[2016-03-18] MEDS: IPRATROPIUM 0.5 MG/2.5 ML NEBU INHALATION SCH ×4 (09:30→19:30)
--- NOTE | 2016-03-18 10:59 | ECHOF ---
Referral Reason:chf MEASUREMENTS -------- HEIGHT: 175.3 cm WEIGHT: 123.8 kg BP: 139/78 RVIDd: 3.8 cm (< 3.3) IVSd: 1.3 cm (0.6 - 1.1) LVIDd: 5.3 cm (3.9 - 5.3) LVPWd: 1.3 cm (0.6 - 1.1) IVSs: 2.0 cm LVIDs: 3.3 cm LVPWs: 1.7 cm LA Diam: 3.7 cm (2.7 - 3.8) Ao Diam: 3.7 cm (2.0 - 3.7) AV Cusp: 2.7 cm (1.5 - 2.6) MV EXCURSION: 17.007 mm (> 18.000) MV EF SLOPE: 29 mm/s (70 - 150) EPSS: 0.9 cm MV E Clyde: 0.63 m/s MV DecT: 353 ms MV A Clyde: 0.93 m/s MV E/A Ratio: 0.69 FINDINGS -------- Sinus rhythm. This was a technically adequate study. The left ventricular size is normal. There is mild concentric left ventricular hypertrophy. Overall left ventricular systolic function is normal with, an EF between 60 - 65 %. The right ventricle is mild to moderately enlarged. The left atrial size is normal. The right atrium is normal in size. The aortic valve is trileaflet and appears structurally normal. Normal appearing mitral valve. No mitral regurgitation. The tricuspid valve appears structurally normal. No regurgitation noted The pulmonic valve was not well visualized. The aortic root is dilated measuring 3.7cm. There is no pericardial effusion. CONCLUSIONS -------- 1. Sinus rhythm. 2. This was a technically adequate study. 3. Overall left ventricular systolic function is normal with, an EF between 60 - 65 %. 4. The right ventricle is mild to moderately enlarged. 5. The left atrial size is normal. 6. The aortic valve is trileaflet and appears structurally normal. 7. The pulmonic valve was not well visualized. 8. The aortic root is dilated measuring 3.7cm. 9. There is no pericardial effusion. LEAD APPLIER: Belgica Mendez [facility]
[2016-03-18 11:52] LABS: Glucose,Whole Blood 130 mg/dL (75-99)
--- NOTE | 2016-03-18 12:14 | CDI ---
In responding to this query, please exercise your independent professional judgment. The [facility] Coding Staff and Clinical Documentation Specialists appreciate your assistance in clarifying documentation, maintaining compliance with coding guidelines, accurately documenting patients condition and capturing severity of illness. The fact that a question is asked does not imply that any particular answer is desired or expected. Communication forms are a method of clarifying documentation and are not made part of the Legal Health Record. Thank you in advance for your clarification. Last Revision, May 2015 Austin Solomon [address] [place] [address] Documentation Clarification Form Date: 03/18/2016 12:03:00 PM From: Dianna Rea Admit Date: 03/16/2016 8:48:00 PM Patient Name: Luis A Woodruff Visit Number: [id number] Dr. Claudia Nunez In the progress note on 03/17/2016 Dr Nunez documented 'the patient had features o acute respiratory failure'. History/Risk Factors: Aspiration Pneumonia CHF COPD Acute Renal Failure Clinical Indicators: Vital signs on admission: HR 108, RR 26, O2 sats 88% on non-rebreather Lung/Breathing assessment on admission: short of breath, labored, tachypnea ABG: pH-7.53 pCO2 -40 pHCO3-34 Treatment: Breathing tx IV Lasix IV steroids - now d/c'd IV Levaquin, IV Zosyn - now d/c'd IV fluids with boluses O2: non-rebreather>nasal cannula 5L>Bipap In your professional opinion, can you please clarify if these findings signify one of the following conditions? o Acute Respiratory failure with hypercapnia o Acute Respiratory failure with hypoxia o Other Diagnosis, please specify o Unable to determine Please document in your progress notes and discharge summary in order to capture severity of illness and risk of mortality. Include clinical findings that support your diagnosis. FYI: Press F11 to launch patient chart. Place X here if this finding has no clinical significance, is not applicable or if you are not able to provide any additional documentation. MTDD
[2016-03-18 12:38] LABS: Levetiracetam (Keppra) 13.9 ug/mL (3.0-60.0)
--- NOTE | 2016-03-18 14:00 | CONS ---
DATE OF CONSULTATION: 03/18/2016 Reason for consult is renal failure. HISTORY OF PRESENT ILLNESS: The patient is a 66-year-old white male who was admitted to the hospital on 03/16/2016 with complaints of shortness of breath. He had no significant chest pain. Patient does have an underlying history of COPD and he is being treated for possible aspiration pneumonia. Patient is being followed by Pulmonary and Cardiology. He is currently maintained on BiPAP. There is evidence of CHF and patient is on Lasix at 40 mg IV q.12 hours. Serum creatinine is at 1.7 mg/dL, it had been at 2.0 on 03/16/2016. We do not have any prior labs available for comparison. Sodium is at 152 today. Patient denies the use of any nonsteroidal anti-inflammatory agents. He is not maintained on any DAVID inhibitors currently. He has not received any IV contrast. PAST MEDICAL HISTORY: COPD, CVA, TIA, hypertension, hyperlipidemia, osteoarthritis, gastroesophageal reflux disease, hypertension, neuropathy, depression. Medications prior to admission include Toprol, Colace, Cymbalta, melatonin, Pravachol, K-Dur, Neurontin, Lasix, Flonase, Flomax, Paxil, Prilosec, Imdur, Klonopin, Norvasc, Ecotrin, Dulcolax, Tylenol. ALLERGIES: None. SOCIAL HISTORY: He has history of smoking previously. No history of drug abuse or alcohol abuse. REVIEW OF SYSTEMS: As per HPI. Other systems negative. No ongoing diarrhea, nausea, vomiting noted. On examination, patient is comfortable, awake. He is not in any acute distress. Blood pressure is 133/75, heart rate 88 per minute. He is afebrile. Examination of the heart S1 and S2. Examination of the lungs, decreased breath sounds at the bases. Abdomen is soft, obese, nontender. Examination of lower extremities shows edema 1+ bilaterally. DRY PAN OPERATOR exam is grossly intact. Labs show sodium 152, potassium 3.1, BUN 64, serum creatinine 1.74, hemoglobin of 13.5 g/dL. Sputum culture is growing Staph aureus and gram-negative bacilli. Urine culture is negative and UA shows trace protein. ASSESSMENT: 1. Acute kidney injury associated with congestive heart failure and possible pneumonia as well. Currently, patient has an indwelling Seals catheter. I do believe he had a component of obstructive uropathy as 1200 mL was obtained when Seals catheter was placed. 2. Rule out chronic kidney disease. No prior labs available. 3. Congestive heart failure and fluid overload, maintained on Lasix. May continue current dose as renal function is actually improving. 4. Hypertension, fairly stable. 5. History of cerebrovascular accident. PLAN: Repeat labs in the a.m., continue current dose of Lasix, repeat chest x-ray in the next day or so. Continue to avoid nephrotoxic agents. May continue with the indwelling Seals catheter for now. Thank you for this consultation. Will continue to follow the patient with you during his hospitalization.
--- NOTE | 2016-03-18 15:01 | P.CRDCN ---
History of Present Illness Consult date: 03/18/16 Requesting physician: Claudia Nunez Consult reason: shortness of breath Chief complaint: Shortness of breath History of present illness: This is a 66-year-old gentleman with prior history of hypertension, hyperlipidemia, CVA, COPD, depression, who was brought to the hospital from [place], apparently patient has been having several days of nausea and vomiting, he has also been running elevated temperatures and having symptoms of shortness of breath. For all of these reasons he was brought to the emergency room for further evaluation. Cardiology consultation was requested because of abnormal troponin value. At the time of my evaluation, he currently has a BiPAP on, he denies having chest pain at present or having chest pain prior to coming in, he does state that he was short of breath. S2 x-ray on arrival here did not show any acute process. EKG on arrival showed a normal sinus rhythm with no acute changes. Repeat Chest x-ray showed mild venous congestion. was initiated on IV Lasix, he was also placed on BiPAP. Oxygen saturation on admission 88%, temperature 100.0. Currently 91% on BiPAP. Weight is down 3 kg today, he continues to diurese well on the IV Lasix. Potassium today 3.1, BUN 64, creatinine 1.7. Troponins 0.045, 0.040, 0.025. BNP level 1120. Past Medical History Past Medical History: Heart Failure, COPD, CVA/TIA, Hyperlipidemia, Hypertension , Osteoarthritis (OA) Additional Past Medical History / Comment(s): right sided weakness History of Any Multi-Drug Resistant Organisms: None Reported Past Surgical History: Unable to Obtain Past Anesthesia/Blood Transfusion Reactions: No Reported Reaction Past Psychological History: Depression Smoking Status: Former smoker Past Alcohol Use History: None Reported Past Drug Use History: None Reported - Past Family History Father History Unknown: Yes Mother History Unknown: Yes Medications and Allergies Home Medications Medication Instructions Recorded Confirmed Type Acetaminophen Tab [Tylenol Tab] 650 mg PO Q4H PRN 03/16/16 03/16/16 History Albuterol Nebulized [Ventolin 2.5 mg INHALATION Q4H PRN 03/16/16 03/16/16 History Nebulized] Aspirin EC [Ecotrin Low Dose] 81 mg PO HS 03/16/16 03/16/16 History Bisacodyl [Dulcolax] 10 mg RECTAL DAILY PRN 03/16/16 03/16/16 History DULoxetine HCL [Cymbalta] 30 mg PO DAILY 03/16/16 03/16/16 History Diclofenac Sodium [Voltaren Gel] 2 gram TOPICAL BID 03/16/16 03/16/16 History Docusate [Colace] 100 mg PO HS 03/16/16 03/16/16 History Fluticasone Nasal [place] [Flonase 1 spray EA NOSTRIL BID 03/16/16 03/16/16 History Nasal [place]] Furosemide [Lasix] 80 mg PO BID 03/16/16 03/16/16 History Gabapentin [Neurontin] 900 mg PO Q8H 03/16/16 03/16/16 History Isosorbide Mononitrate ER [Imdur] 30 mg PO DAILY 03/16/16 03/16/16 History Ketoconazole 2% Shampoo [Nizoral] 1 applic TOPICAL MOTH 03/16/16 03/16/16 History Lactulose 20 gm PO DAILY 03/16/16 03/16/16 History Mag Hydrox/Al Hydrox/Simeth 30 ml PO HS 03/16/16 03/16/16 History [Maalox] Mag Hydrox/Al Hydrox/Simeth 30 ml PO PC-TID PRN 03/16/16 03/16/16 History [Maalox] Magnesium Hydroxide [Milk of 2,400 mg PO DAILY PRN 03/16/16 03/16/16 History Magnesia] Melatonin 6 mg PO HS 03/16/16 03/16/16 History Metoprolol Succinate (ER) [Toprol 50 mg PO DAILY 03/16/16 03/16/16 History Xl] [place]-3 Fatty Acids/Fish Oil [Fish 2 cap PO BID 03/16/16 03/16/16 History Oil 1,000 mg Softgel] Omeprazole [PriLOSEC] 20 mg PO DAILY 03/16/16 03/16/16 History PARoxetine [Paxil] 10 mg PO DAILY 03/16/16 03/16/16 History Potassium Chloride ER [K-Dur 10] 10 meq PO DAILY 03/16/16 03/16/16 History Pravastatin Sodium [Pravachol] 40 mg PO HS 03/16/16 03/16/16 History Sennosides/Docusate Sodium 2 tab PO HS 03/16/16 03/16/16 History [Docusate Sodium-Senna Tablet] Simethicone [Gas-X] 250 mg PO HS 03/16/16 03/16/16 History Tamsulosin HCl [Flomax] 0.4 mg PO DAILY 03/16/16 03/16/16 History amLODIPine [Norvasc] 10 mg PO DAILY 03/16/16 03/16/16 History clonazePAM [KlonoPIN] 0.5 mg PO HS 03/16/16 03/16/16 History hydrALAZINE HCL [Apresoline] 50 mg PO Q8H 03/16/16 03/16/16 History levETIRAcetam [Keppra] 250 mg PO Q8H 03/16/16 03/16/16 History oxyCODONE-APAP 7.5-325MG [Percocet 1 tab PO Q6HR 03/16/16 03/16/16 History 7.5-325 mg] predniSONE [Deltasone] 20 mg PO HS 03/16/16 03/16/16 History Allergies Allergy/AdvReac Type Severity Reaction Status Date / Time No Known Allergies Allergy Verified 03/16/16 19:30 Physical Exam Vitals: Vital Signs Temp Pulse Pulse Pulse Resp BP Pulse Ox 03/18/16 13:25 92 22 03/18/16 13:10 92 03/18/16 11:16 70 03/18/16 11:15 70 22 133/75 91 L 03/18/16 09:55 90 03/18/16 09:41 88 03/18/16 09:40 90 03/18/16 09:30 88 22 03/18/16 08:00 97 F L 68 22 144/70 94 L 03/18/16 04:00 98.2 F 67 24 139/78 95 03/18/16 00:00 98 F 95 24 147/75 96 03/17/16 20:15 88 03/17/16 20:05 80 03/17/16 20:04 80 03/17/16 20:00 98.9 F 95 24 146/73 92 L 03/17/16 19:58 88 03/17/16 16:00 97.8 F 96 97 28 H 105/72 89 L 03/17/16 15:42 92 Intake and Output 03/17/16 03/18/16 03/18/16 22:59 06:59 14:59 Intake Total 450 Output Total 1200 1600 1000 Balance -1200 -1150 -1000 Intake: IV 450 0.9% NaCl with KCl 20 MeQ 450 @50 mls/hr Output: Urine 1200 1600 1000 Uretheral (Seals) 400 800 Other: Voiding Method Indwelling Catheter Indwelling Catheter Indwelling Catheter # Bowel Movements 0 Weight 124 kg PHYSICAL EXAMINATION: HEENT: Head is atraumatic, normocephalic. Pupils equal, round. Neck is supple. There is no elevated jugular venous pressure. HEART EXAMINATION: Heart S1, S2 distant . No murmur or gallop heard. CHEST EXAMINATION: Lungs reveal coarse crackles to bilateral bases. ABDOMEN: Soft, nontender. Bowel sounds are heard. No organomegaly noted. EXTREMITIES: 2+ peripheral pulses with trace evidence of peripheral edema and no calf tenderness noted. NEUROLOGIC [patient is awake, alert , BiPAP in place. . Results 03/18/16 06:33 03/18/16 06:33 CBC 03/18/16 Range/Units 06:33 WBC 11.2 H (3.8-10.6) k/uL RBC 5.10 (4.30-5.90) m/uL Hgb 13.5 (13.0-17.5) gm/dL Hct 43.8 (39.0-53.0) % Plt Count 281 (150-450) k/uL Comprehensive Metabolic Panel 03/18/16 Range/Units 06:33 Sodium 152 H (137-145) mmol/L Potassium 3.1 L (3.5-5.1) mmol/L Chloride 100 (98-107) mmol/L Carbon Dioxide 36 H (22-30) mmol/L BUN 64 H (9-20) mg/dL Creatinine 1.74 H (0.66-1.25) mg/dL Glucose 137 H (74-99) mg/dL Calcium 9.4 (8.4-10.2) mg/dL Current Medications Generic Name Dose Route Start Last Admin Trade Name Freq PRN Reason Stop Dose Admin Acetaminophen 650 mg 03/16/16 20:50 03/18/16 09:08 Tylenol Tab PO 650 mg Q6HR PRN Administration Mild Pain or Fever > 100.5 Al Hydroxide/Mg Hydroxide 30 ml 03/16/16 23:00 03/17/16 21:41 Maalox PO 30 ml HS STACEY Administration Amlodipine Besylate 10 mg 03/17/16 09:00 03/18/16 09:07 Norvasc PO 10 mg DAILY STACEY Administration Budesonide 1 mg 03/17/16 08:00 03/18/16 09:29 Pulmicort INHALATION 1 mg RT-BID STACEY Administration Clonazepam 0.5 mg 03/16/16 23:00 03/17/16 21:41 Klonopin PO 0.5 mg HS STACEY Administration Diclofenac Sodium 2 gm 03/17/16 09:00 03/18/16 09:06 Voltaren Gel TOPICAL 2 gm BID STACEY Administration Docusate Sodium 100 mg 03/17/16 21:00 03/17/16 21:34 Colace PO 100 mg HS STACEY Administration Duloxetine HCl 30 mg 03/17/16 09:00 03/18/16 09:06 Cymbalta PO 30 mg DAILY STACEY Administration Fluticasone Propionate 1 spray 03/17/16 09:00 03/18/16 09:06 Flonase Nasal [place] EA NOSTRIL 1 spray BID [facility] Administration Formoterol Fumarate 20 mcg 03/17/16 08:00 03/18/16 09:30 Perforomist INHALATION 20 mcg RT-BID STACEY Administration Furosemide 40 mg 03/17/16 21:00 03/18/16 09:06 Lasix IV 40 mg Q12HR STACEY Administration Hydralazine HCl 50 mg 03/16/16 23:30 03/18/16 06:38 Apresoline PO Not Given Q8H STACEY Levofloxacin 500 mg/ IV 100 mls @ 100 mls/hr 03/17/16 21:00 03/17/16 21:38 Solution IVPB 100 mls/hr Q24H STACEY Administration Insulin Human Lispro 0 unit 03/17/16 07:30 03/18/16 11:56 Humalog SQ Not Given ACHS [facility] Protocol Ipratropium [place] 0.5 mg 03/17/16 08:00 03/18/16 13:10 Atrovent Nebulized INHALATION 0.5 mg RT-QID STACEY Administration Isosorbide Mononitrate 30 mg 03/17/16 09:00 03/18/16 09:07 Imdur PO 30 mg DAILY STACEY Administration Ketoconazole 1 applic 03/16/16 23:30 03/17/16 00:19 Nizoral TOPICAL Not Given MOTH [facility] Lactulose 20 gm 03/17/16 09:00 03/18/16 09:08 Cephulac PO 20 gm DAILY STACEY Administration Levalbuterol HCl 1.25 mg 03/17/16 08:00 03/18/16 13:10 Xopenex Nebulized (Conc) INHALATION 1.25 mg RT-QID STACEY Administration Levetiracetam 250 mg 03/16/16 23:30 03/18/16 06:38 Keppra PO Not Given Q8H STACEY Magnesium Hydroxide 2,400 mg 03/16/16 23:20 Milk Of Magnesia PO DAILY PRN Constipation Melatonin 6 mg 03/16/16 23:00 03/17/16 21:36 Melatonin PO 6 mg HS STACEY Administration Metoprolol Succinate 50 mg 03/17/16 09:00 03/18/16 09:08 Toprol Xl PO 50 mg DAILY STACEY Administration Miscellaneous Information 1 each 03/16/16 23:04 Magnesium Per Protocol MISCELLANE DAILY PRN Per Protocol Protocol Miscellaneous Information 1 each 03/17/16 00:26 Potassium Per Protocol MISCELLANE DAILY PRN Per Protocol Protocol Naloxone HCl 0.2 mg 03/16/16 20:50 Narcan IV Q2M PRN Opioid Reversal Ondansetron HCl 4 mg 03/16/16 22:59 03/16/16 23:38 Zofran IVP 4 mg Q6HR PRN Administration Nausea And Vomiting Pantoprazole Sodium 40 mg 03/17/16 09:00 03/18/16 09:07 Protonix IVP 40 mg BID STACEY Administration Paroxetine HCl 10 mg 03/17/16 09:00 03/18/16 09:08 Paxil PO 10 mg DAILY STACEY Administration Pravastatin Sodium 40 mg 03/16/16 23:00 03/17/16 21:34 Pravachol PO 40 mg HS STACEY Administration Senna/Docusate Sodium 2 each 03/17/16 21:00 03/17/16 21:41 Senokot-S PO 2 each HS STACEY Administration Simethicone 240 mg 03/17/16 21:00 03/17/16 21:34 Mylicon Chew PO 240 mg HS STACEY Administration Tamsulosin HCl 0.4 mg 03/17/16 09:00 03/18/16 09:08 Flomax PO 0.4 mg DAILY STACEY Administration Intake and Output 03/17/16 03/18/16 03/18/16 22:59 06:59 14:59 Intake Total 450 Output Total 1200 1600 1000 Balance -1200 -1150 -1000 Intake: IV 450 0.9% NaCl with KCl 20 MeQ 450 @50 mls/hr Output: Urine 1200 1600 1000 Uretheral (Seals) 400 800 Other: Voiding Method Indwelling Catheter Indwelling Catheter Indwelling Catheter # Bowel Movements 0 Weight 124 kg 03/18/16 06:33 03/18/16 06:33 EKG Interpretations (text) EKG shows a normal sinus rhythm with no acute changes. Assessment and Plan Plan: Assessment and plan #1 diastolic congestive heart failure acute on chronic, echocardiogram with Doppler study revealed an ejection fraction of 60-65%. #2 exacerbation of COPD, currently on BiPAP #3 prior CVA #4 hypertension # 5 hyperlipidemia #6 abnormal troponins, not consistent with acute coronary syndrome. Likely secondary to oxygen supply and demand mismatch, echocardiogram revealed normal left ventricular systolic function. #7 possible aspiration pneumonia. #8 remote history of nicotine dependence #9 history of depression Plan From cardiology's perspective, we'll recommend to continue diuresing with IV Lasix, we'll check lytes BUN and creatinine in the morning. Repeat chest x-ray tomorrow. Further recommendations to follow. DNP note has been reviewed, I agree with a documented findings and plan of care. Patient was seen and examined.
--- NOTE | 2016-03-18 15:45 | P.PN ---
Subjective He had developed significant acute respiratory failure and an A team was called on him. He has required BiPAP support 12/17 at 50% to maintain O2 saturations in the low 90s. He is seen today again on the selective care unit. He is currently awake and alert in no acute distress. He has been maintained on BiPAP. His chest x-ray showed evidence of mild venous congestion versus interstitial pneumonitis. He is on both diuretics and antibiotics. The echocardiogram revealed preserved left ventricular systolic function. His sputum is positive for presumptive staph aureus. Objective - Vital Signs Vital signs: Vital Signs Temp 97 F L 03/18/16 08:00 Pulse 92 03/18/16 13:25 Resp 22 03/18/16 13:25 BP 133/75 03/18/16 11:15 Pulse Ox 91 L 03/18/16 11:15 Intake & Output 03/17/16 03/18/16 03/18/16 18:59 06:59 18:59 Intake Total 450 Output Total 400 2400 1000 Balance -400 -1950 -1000 Weight 124 kg Intake: IV 450 0.9% NaCl with KCl 20 MeQ 450 @50 mls/hr Output: Urine 400 2400 1000 Uretheral (Seals) 1200 Other: Voiding Method Urinal Indwelling Catheter Indwelling Catheter # Voids 1 # Bowel Movements 0 - Exam GENERAL EXAM: Obese. Alert, comfortable in no apparent distress. HEAD: Normocephalic. EYES: Normal reaction of pupils, equal size. NOSE: Clear with pink turbinates. THROAT: Crowding of the posterior pharynx. No erythema or exudates. NECK: No masses, no JVD. CHEST: No chest wall deformity. LUNGS: Equal air entry with faint crackles in the posterior bases.. CVS: S1 and S2 normal with no audible murmurs, regular rhythm. ABDOMEN: Obese, normal bowel sounds, no guarding or rigidity. Extremities: There is 1+ lower extremity peripheral edema. Peripheral pulses are intact. No clubbing, no cyanosis. - Labs CBC & Chem 7: 03/18/16 06:33 03/18/16 06:33 Labs: Abnormal Lab Results - Last 24 Hours (Table) 03/17/16 03/17/16 03/18/16 Range/Units 16:53 20:45 05:57 WBC (3.8-10.6) k/uL MCHC (31.0-37.0) g/dL Neutrophils # (1.3-7.7) k/uL Lymphocytes # (1.0-4.8) k/uL Sodium (137-145) mmol/L Potassium (3.5-5.1) mmol/L Carbon Dioxide (22-30) mmol/L BUN (9-20) mg/dL Creatinine (0.66-1.25) mg/dL Glucose (74-99) mg/dL POC Glucose (mg/dL) 159 H 154 H 117 H (75-99) mg/dL 03/18/16 03/18/16 03/18/16 Range/Units 06:33 06:33 11:50 WBC 11.2 H (3.8-10.6) k/uL MCHC 30.7 L (31.0-37.0) g/dL Neutrophils # 9.3 H (1.3-7.7) k/uL Lymphocytes # 0.8 L (1.0-4.8) k/uL Sodium 152 H (137-145) mmol/L Potassium 3.1 L (3.5-5.1) mmol/L Carbon Dioxide 36 H (22-30) mmol/L BUN 64 H (9-20) mg/dL Creatinine 1.74 H (0.66-1.25) mg/dL Glucose 137 H (74-99) mg/dL POC Glucose (mg/dL) 130 H (75-99) mg/dL Assessment and Plan Plan: Impression: #1 Acute hypoxic respiratory failure secondary to fluid volume overload/ diastolic congestive heart failure and suspected staph aureus pneumonia. #2 Acute exacerbation of chronic obstructive pulmonary disease. #3 cerebrovascular accident. #4 Hyperlipidemia. #5 Hypertension. Plan: The patient was seen and evaluated by Dr. Mercado. We'll continue to utilize BiPAP as needed. We will attempt to wean him away from that M we'll maintain O2 saturations in the low 90s on nasal cannula. We'll continue with his current medications. We will initiate vancomycin until we get a final ID on the sputum culture which is presumed staph aureus. We'll continue with his current pulmonary medications. He continues to be diuresed with Lasix 40 mg IV every 12 hours. Cardiology is following as well. We'll continue to follow make further recommendations based on his clinical status.
[2016-03-18] MEDS ORDERED: IV VANCOMYCIN PER PHARMACY 1 EACH MISC MISCELLANE PRN (15:46)
[2016-03-18] MEDS ORDERED: VANCOMYCIN 1,000 MG in SODIUM CHLORIDE 0.9% 250 ML IVPB STA (15:46)
[2016-03-18] MEDS ORDERED: VANCOMYCIN 2,000 MG in SODIUM CHLORIDE 0.9% 500 ML IVPB ONE (17:00)
[2016-03-18 17:02] LABS: Glucose,Whole Blood 131 mg/dL (75-99)
[2016-03-18] MEDS: PRAVASTATIN SODIUM 40 MG TAB PO SCH (20:14)
[2016-03-18] MEDS: SIMETHICONE 80 MG CHEWABLE PO SCH ×2 (20:14→20:33)
[2016-03-18] MEDS: MAG HYDROX/AL HYDROX/SIMETH 30 ML CUP PO SCH (20:14)
[2016-03-18] MEDS: DOCUSATE 100 MG CAP PO SCH (20:14)
[2016-03-18] MEDS: MELATONIN 3 MG TABLET PO SCH (20:14)
[2016-03-18] MEDS: SENNOSIDES-DOCUSATE SODIUM 1 EACH TAB PO SCH (20:14)
[2016-03-18] MEDS: LEVOFLOXACIN 500MG-D5W PMX 500 MG in DEXTROSE/WATER 1 100ML.BAG IVPB SCH (20:14)
[2016-03-18] MEDS: clonazePAM 0.5 MG TAB PO SCH (20:14)
[2016-03-18 20:38] LABS: Glucose,Whole Blood 143 mg/dL (75-99)
[2016-03-19] MEDS: ACETAMINOPHEN TAB 325 MG TAB PO PRN (02:08)
[2016-03-19 05:58] LABS: Glucose,Whole Blood 127 mg/dL (75-99)
[2016-03-19] MEDS: INSULIN LISPRO (humaLOG) 300 UNIT/3 ML VIAL SQ SCH ×4 (06:02→22:52)
[2016-03-19] MEDS: hydrALAZINE HCL 50 MG TAB PO SCH (06:30)
[2016-03-19] MEDS: levETIRAcetam 250 MG TAB PO SCH ×3 (06:31→22:55)
[2016-03-19 06:45] LABS: Basophils # (A) 0.1 k/uL (0-0.2); Basophils % (A) 1 %; CH 25.9; CHCM 29.8; Eosinophils % (A) 0 %; HCT 46.4 % (39.0-53.0); HDW 2.52; HGB 13.8 gm/dL (13.0-17.5); Hypochromasia Marked; Luc # (Auto) 0.22; Luc % (Auto) 2; Lymphocytes # (A) 0.9 k/uL (1.0-4.8); Lymphocytes % (A) 7 %; MCHC 29.8 g/dL (31.0-37.0); MCV 87.2 fL (80.0-100.0); Mean Platelet Volume 8.3; Monocytes % (A) 8 %; Neutrophils # (A) 10.6 k/uL (1.3-7.7); Neutrophils % (A) 83 %; RBC 5.32 m/uL (4.30-5.90); RDW 13.9 % (11.5-15.5); WBC 12.8 k/uL (3.8-10.6); WBC (Perox) 12.88
[2016-03-19 07:02] LABS: Calcium 9.4 mg/dL (8.4-10.2); Potassium 3.3 mmol/L (3.5-5.1)
[2016-03-19] MEDS: FORMOTEROL FUMARATE 20 MCG/2 ML NEBU INHALATION SCH ×2 (08:16→18:55)
[2016-03-19] MEDS: BUDESONIDE 1 MG/2 ML NEBU INHALATION SCH ×2 (08:16→18:55)
[2016-03-19] MEDS: IPRATROPIUM-ALBUTEROL 3 ML NEB INHALATION SCH ×4 (08:16→18:55)
[2016-03-19] MEDS: amLODIPine 10 MG TAB PO SCH (08:45)
[2016-03-19] MEDS: DICLOFENAC SODIUM GEL 100 GM TUBE TOPICAL SCH ×2 (08:45→22:57)
[2016-03-19] MEDS: PANTOPRAZOLE 40 MG/10 ML VIAL IVP SCH ×2 (08:46→22:55)
[2016-03-19] MEDS: PARoxetine 10 MG TAB PO SCH (08:46)
[2016-03-19] MEDS: DULoxetine HCL 30 MG CAPSULE.DR PO SCH (08:46)
[2016-03-19] MEDS: FLUTICASONE 50MCG/SPRAY NASAL 16GM EA NOSTRIL SCH ×2 (08:46→22:54)
[2016-03-19] MEDS: METOPROLOL SUCCINATE (ER) 50 MG TAB.ER.24H PO SCH (08:46)
[2016-03-19] MEDS: LACTULOSE 20 GM/30 ML CUP PO SCH (08:46)
[2016-03-19] MEDS: TAMSULOSIN 0.4 MG CAP.ER.24H PO SCH (08:46)
[2016-03-19] MEDS: FUROSEMIDE 10 MG/ML 4 ML VIAL IV SCH (08:46)
[2016-03-19] MEDS: ISOSORBIDE MONONITRATE ER 30 MG TAB.ER.24H PO SCH (08:46)
[2016-03-19] MEDS: VANCOMYCIN 2,000 MG in SODIUM CHLORIDE 0.9% 500 ML IVPB SCH (09:03)
--- NOTE | 2016-03-19 09:04 | PN ---
DATE OF SERVICE: 03/18/2016 This 66-year-old gentleman admitted with COPD and shortness of breath also had congestive heart failure acute exacerbations as well as chronic obstructive pulmonary disease. Seen and evaluated the patient along with the nurse practitioner. Please refer to the nurse practitioner notes and impression documented for further information. The patient also had acute hypoxic respiratory failure. Review of systems could not be taken. The patient on BiPAP. Medications reviewed. Current medications reviewed: Tylenol, Maalox, DuoNeb, Norvasc, Pulmicort, Klonopin, Voltaren,Cymbalta, Flonase, Perforomist, Lasix, Apresoline, Humalog, Atrovent, Imdur, Cephulac, Keppra, Levaquin, melatonin, Toprol, Narcan, Protonix, Paxil, Senokot S, Flomax, also reviewed. The Gram-stain sputum showed presumptive staph aureus and gram-negative bacilli. Vancomycin was added. Continue the current medications. Otherwise Levaquin also will be continued. Further recommendations to follow. MTDD
[2016-03-19] MEDS: DEXTROSE 5% IN WATER 1,000 ML IV SCH (09:49)
[2016-03-19] MEDS ORDERED: POTASSIUM CHLORIDE ER 20 MEQ TAB.ER PO SCH ×2 (10:00→14:00)
--- NOTE | 2016-03-19 11:42 | P.PN ---
Subjective Progress note dated 03/19/2016 The patient had an 18 call when he developed respiratory distress. He was placed on BiPAP at 10 and 5 and 50%. The patient continues to improve. Less short of breath. He's Primus been maintained on BiPAP and, come off the BiPAP and go back to nasal prongs. The patient did have a chest x-ray which suggested some pneumonitis versus a mild pulmonary venous hypertension and mild heart failure. His sputum showed staph aureus. He was given vancomycin yesterday pending the sensitivities. Objective - Vital Signs Vital signs: Vital Signs Temp 98 F 03/19/16 09:06 Pulse 84 03/19/16 11:35 Resp 20 03/19/16 09:06 BP 151/89 03/19/16 09:06 Pulse Ox 97 03/19/16 11:35 Intake & Output 03/18/16 03/19/16 03/19/16 18:59 06:59 18:59 Intake Total 850 100 Output Total 1000 2000 Balance -1000 -1150 100 Weight 121 kg Intake: IV 250 100 0.9% NaCl with KCl 20 MeQ 250 100 @50 mls/hr Intake, IV Titration 600 Amount Levofloxacin 500Mg-D5w 100 Pmx 500 mg In Dextrose/ Water 1 100ml.bag @ 100 mls/hr IVPB Q24H [facility] Rx#: [id number] Vancomycin 2,000 mg In 500 Sodium Chloride 0.9% 500 ml @ 167 mls/hr IVPB ONCE ONE Rx#:[id number] Output: Urine 1000 2000 Other: Voiding Method Indwelling Catheter Indwelling Catheter Indwelling Catheter - Exam No acute distress, oriented 3. He is alert. HEENT examination is grossly unremarkable. Mucous membranes are moist. Neck supple. Full range of motion. No adenopathy. Cardiovascular examination reveals regular rhythm rate. S1-S2 normal. No heart murmur. No S3-S4. Lungs reveal few scattered crackles. No wheezes or rhonchi. Abdomen soft. Extremities Reveal very mild edema. - Labs CBC & Chem 7: 03/19/16 05:57 03/19/16 05:57 Labs: Abnormal Lab Results - Last 24 Hours (Table) 03/18/16 03/18/16 03/18/16 Range/Units 11:50 16:45 20:36 WBC (3.8-10.6) k/uL MCHC (31.0-37.0) g/dL Neutrophils # (1.3-7.7) k/uL Lymphocytes # (1.0-4.8) k/uL Sodium (137-145) mmol/L Potassium (3.5-5.1) mmol/L Carbon Dioxide (22-30) mmol/L BUN (9-20) mg/dL Creatinine (0.66-1.25) mg/dL Glucose (74-99) mg/dL POC Glucose (mg/dL) 130 H 131 H 143 H (75-99) mg/dL Magnesium (1.6-2.3) mg/dL 03/19/16 03/19/16 03/19/16 Range/Units 05:56 05:57 05:57 WBC 12.8 H (3.8-10.6) k/uL MCHC 29.8 L (31.0-37.0) g/dL Neutrophils # 10.6 H (1.3-7.7) k/uL Lymphocytes # 0.9 L (1.0-4.8) k/uL Sodium 159 H (137-145) mmol/L Potassium 3.3 L (3.5-5.1) mmol/L Carbon Dioxide 37 H (22-30) mmol/L BUN 53 H (9-20) mg/dL Creatinine 1.65 H (0.66-1.25) mg/dL Glucose 135 H (74-99) mg/dL POC Glucose (mg/dL) 127 H (75-99) mg/dL Magnesium (1.6-2.3) mg/dL 03/19/16 Range/Units 05:57 WBC (3.8-10.6) k/uL MCHC (31.0-37.0) g/dL Neutrophils # (1.3-7.7) k/uL Lymphocytes # (1.0-4.8) k/uL Sodium (137-145) mmol/L Potassium (3.5-5.1) mmol/L Carbon Dioxide (22-30) mmol/L BUN (9-20) mg/dL Creatinine (0.66-1.25) mg/dL Glucose (74-99) mg/dL POC Glucose (mg/dL) (75-99) mg/dL Magnesium 2.9 H (1.6-2.3) mg/dL Assessment and Plan (1) CHF (congestive heart failure) Status: Acute (2) COPD (chronic obstructive pulmonary disease) Status: Acute (3) CVA (cerebral vascular accident) Status: Acute (4) Hyperlipidemia Status: Acute (5) Hypertension Status: Acute (6) Dyspnea Status: Acute Plan: Plan dated 03/17/2016 The patient 58 the patient did receive some Lasix is morning IV push. In addition we place him on oxygen and actually replace the oxygen with BiPAP. He is BiPAP settings included an IPAP of 10 and EPAP of 5 with enough oxygen bled in to maintain sats in the mid to high 80s. Is a CO2 retainer. His medications and other labs and so forth will be reviewed. His x-rays have been reviewed. Additional recommendations suggestions are forthcoming. He appears much more stable Progress note dated 03/19/2016 Will check to sensitivities of the staph. The patient will continue to receive current medications: Bronchodilators and diuretics. We'll adjust antibiotics accordingly. No additional recommendations are made. Overall prognosis is guarded but the patient does seem to be showing improvement. Based on yesterday 's laboratory data, the Lasix will have to be reduced or discontinued altogether gather as a patient was Becoming quite prerenal alkalotic and hyponatremic. Time with Patient: Less than 30
[2016-03-19 11:52] LABS: Glucose,Whole Blood 120 mg/dL (75-99)
--- NOTE | 2016-03-19 14:22 | XR ---
EXAMINATION TYPE: XR chest 1V portable DATE OF EXAM: 03/19/2016 1:46 PM COMPARISON: Prior chest x-ray third of March 2016 HISTORY: Congestive heart failure TECHNIQUE: Single frontal view of the chest is obtained. FINDINGS: Patient is rotated. Calcified aorticopulmonary window node again noted. Patient is rotated , accentuation of the heart size may be due to rotation. There may be retrocardiac calcified granulom a. No pneumothorax or evident effusion. There is improvement in the interstitial and central vascular ity. IMPRESSION: Improvement in volume status. Old granulomatous disease. Rotated exam. Follow-up PA and lateral chest x-ray may be of benefit.
--- NOTE | 2016-03-19 14:59 | PN ---
Patient is seen for followup for acute kidney injury. His renal function has been slowly improving. Creatinine is down to 1.65 from 2.0 on initial admission. Patient has also been hypernatremic. He will be started on D5W today. Patient was admitted to the hospital with shortness of breath. He had respiratory failure. He had been on BiPAP and is being treated for CHF. He is currently off of BiPAP. Lasix is on hold at this time. On examination, the patient is awake, comfortable. He does not communicate much. Blood pressure is 129/76, heart rate 100 per minute. He is afebrile. Examination of the heart S1 and S2. Examination of the lungs, decreased breath sounds at the bases. Abdomen is soft, morbidly obese. Examination of the lower extremities shows chronic skin changes with edema 1+ bilaterally. Labs show sodium 159 from today, potassium 3.3, BUN 53, serum creatinine 1.65. UA was unremarkable with trace protein. ASSESSMENT: 1. Acute kidney injury, nonoliguric, currently improving, mainly cardiorenal. The UA is fairly benign. Patient was recently diuresed. He is currently off of the Lasix. His chest x-ray from today shows improvement in volume status. 2. Hypokalemia secondary to diuretics, status post replacement. Will replace aggressively. 3. Hypernatremia. Will start D5W. PLAN: Start D5W at about 50 mL an hour. Continue off of Lasix. Repeat labs in a.m. Replace potassium aggressively. DC the milk of magnesia as serum magnesium is high at 2.9.
[2016-03-19 16:36] LABS: Glucose,Whole Blood 146 mg/dL (75-99)
[2016-03-19] MEDS ORDERED: LEVOFLOXACIN 250 MG TAB PO SCH (21:00)
[2016-03-19 22:06] LABS: Glucose,Whole Blood 116 mg/dL (75-99)
[2016-03-19] MEDS: SIMETHICONE 80 MG CHEWABLE PO SCH (22:53)
[2016-03-19] MEDS: DOCUSATE 100 MG CAP PO SCH (22:54)
[2016-03-19] MEDS: MELATONIN 3 MG TABLET PO SCH (22:54)
[2016-03-19] MEDS: PRAVASTATIN SODIUM 40 MG TAB PO SCH (22:55)
[2016-03-19] MEDS: clonazePAM 0.5 MG TAB PO SCH (23:07)
[2016-03-19] MEDS: SENNOSIDES-DOCUSATE SODIUM 1 EACH TAB PO SCH (23:07)
[2016-03-20] MEDS: KETOCONAZOLE 2% SHAMPOO 1 APPLIC/ML TOPICAL SCH (00:36)
[2016-03-20 06:28] LABS: Glucose,Whole Blood 123 mg/dL (75-99)
[2016-03-20 06:35] LABS: Basophils # (A) 0.1 k/uL (0-0.2); Basophils % (A) 1 %; CH 26.2; CHCM 29.6; Eosinophils # (A) 0.1 k/uL (0-0.7); Eosinophils % (A) 0 %; HCT 50.6 % (39.0-53.0); HDW 2.49; HGB 14.7 gm/dL (13.0-17.5); Hypochromasia Marked; Luc # (Auto) 0.27; Luc % (Auto) 2; Lymphocytes # (A) 1.2 k/uL (1.0-4.8); Lymphocytes % (A) 9 %; MCH 25.8 pg (25.0-35.0); MCV 88.8 fL (80.0-100.0); Mean Platelet Volume 8.1; Monocytes # (A) 1.1 k/uL (0-1.0); Monocytes % (A) 8 %; Neutrophils # (A) 10.4 k/uL (1.3-7.7); Neutrophils % (A) 79 %; RDW 14.1 % (11.5-15.5); WBC (Perox) 13.59
[2016-03-20] MEDS: INSULIN LISPRO (humaLOG) 300 UNIT/3 ML VIAL SQ SCH ×4 (06:36→21:08)
[2016-03-20] MEDS: levETIRAcetam 250 MG TAB PO SCH ×3 (06:39→22:22)
[2016-03-20 06:53] LABS: Calcium 9.5 mg/dL (8.4-10.2); Potassium 3.5 mmol/L (3.5-5.1)
[2016-03-20] MEDS: FORMOTEROL FUMARATE 20 MCG/2 ML NEBU INHALATION SCH ×2 (08:12→20:06)
[2016-03-20] MEDS: IPRATROPIUM-ALBUTEROL 3 ML NEB INHALATION SCH ×4 (08:12→20:06)
[2016-03-20] MEDS: BUDESONIDE 1 MG/2 ML NEBU INHALATION SCH ×2 (08:12→20:06)
--- NOTE | 2016-03-20 10:29 | PN ---
DATE OF SERVICE: 03/19/2016 This 66-year-old woman was admitted with multiple medical problems including chronic obstructive pulmonary disease, acute exacerbation, also had CHF acute exacerbation. Also suspected have aspiration. Seen and evaluated the patient along with the nurse practitioner. Please refer to the nurse practitioner notes and impression documented for further information. Guarded prognosis. Further recommendations to follow. Please add in the final diagnoses: Acute hypoxic respiratory failure. Swallow evaluation per Speech Pathology.
--- NOTE | 2016-03-20 10:30 | P.PN ---
Subjective Progress note dated 03/19/2016 The patient had an 18 call when he developed respiratory distress. He was placed on BiPAP at 10 and 5 and 50%. The patient continues to improve. Less short of breath. He's Primus been maintained on BiPAP and, come off the BiPAP and go back to nasal prongs. The patient did have a chest x-ray which suggested some pneumonitis versus a mild pulmonary venous hypertension and mild heart failure. His sputum showed staph aureus. He was given vancomycin yesterday pending the sensitivities. Progress note dated 03/20/2016 This is a 66-year-old man who initially presented with respiratory distress. The respiratory difficulty was probably multifactorial in part related to underlying fluid overload but also related to underlying infection of the lung he's very purulent tracheobronchitis or pneumonitis. The sputum apparently grew a number different things including Pseudomonas Klebsiella Enterobacter and methicillin-resistant staph aureus. He is currently only on vancomycin as an antibiotic. It would probably be beneficial to have ID see the patient and make some recommendations in regards to which antibiotics the patient would be best served on. The patient seemed relatively stable today. Difficult for him to verbalize his complaints. Does not appear to be in any significant distress. Objective - Vital Signs Vital signs: Vital Signs Temp 97.1 F L 03/20/16 04:00 Pulse 116 H 03/20/16 08:39 Resp 20 03/20/16 04:00 BP 125/80 03/20/16 04:00 Pulse Ox 98 03/20/16 04:00 Intake & Output 03/19/16 03/20/16 03/20/16 18:59 06:59 18:59 Intake Total 300 900 118 Output Total 1825 Balance -1525 900 118 Weight 120.5 kg Intake: IV 100 0.9% NaCl with KCl 20 MeQ 100 @50 mls/hr Intake, IV Titration 600 Amount Dextrose 5% in Water 1, 600 000 ml @ 50 mls/hr IV . Q20H [facility] Rx#:[id number] Oral 200 300 118 Output: Urine 1825 Other: Voiding Method Indwelling Catheter Indwelling Catheter # Bowel Movements 1 - Exam No acute distress, oriented 3. He is alert. HEENT examination is grossly unremarkable. Mucous membranes are moist. Neck supple. Full range of motion. No adenopathy. Cardiovascular examination reveals regular rhythm rate. S1-S2 normal. No heart murmur. No S3-S4. Lungs reveal few scattered crackles and a few scattered rhonchi. Breath sounds are generally improved. Breath sounds are slightly diminished. The patient does not take a deep breath. Abdomen soft. Extremities Reveal very mild edema. - Labs CBC & Chem 7: 03/20/16 06:16 03/20/16 06:16 Labs: Abnormal Lab Results - Last 24 Hours (Table) 03/16/16 03/19/16 03/19/16 Range/Units 23:56 11:50 12:28 WBC (3.8-10.6) k/uL MCHC (31.0-37.0) g/dL Neutrophils # (1.3-7.7) k/uL Monocytes # (0-1.0) k/uL Sodium (137-145) mmol/L Potassium 3.1 L (3.5-5.1) mmol/L Chloride (98-107) mmol/L Carbon Dioxide (22-30) mmol/L BUN (9-20) mg/dL Creatinine (0.66-1.25) mg/dL Glucose (74-99) mg/dL POC Glucose (mg/dL) 120 H (75-99) mg/dL Gabapentin 25.9 H (2.0-12.0) ug/mL 03/19/16 03/19/16 03/20/16 Range/Units 16:32 22:04 06:16 WBC 13.0 H (3.8-10.6) k/uL MCHC 29.0 L (31.0-37.0) g/dL Neutrophils # 10.4 H (1.3-7.7) k/uL Monocytes # 1.1 H (0-1.0) k/uL Sodium (137-145) mmol/L Potassium (3.5-5.1) mmol/L Chloride (98-107) mmol/L Carbon Dioxide (22-30) mmol/L BUN (9-20) mg/dL Creatinine (0.66-1.25) mg/dL Glucose (74-99) mg/dL POC Glucose (mg/dL) 146 H 116 H (75-99) mg/dL Gabapentin (2.0-12.0) ug/mL 03/20/16 03/20/16 Range/Units 06:16 06:25 WBC (3.8-10.6) k/uL MCHC (31.0-37.0) g/dL Neutrophils # (1.3-7.7) k/uL Monocytes # (0-1.0) k/uL Sodium 157 H (137-145) mmol/L Potassium (3.5-5.1) mmol/L Chloride 108 H (98-107) mmol/L Carbon Dioxide 34 H (22-30) mmol/L BUN 46 H (9-20) mg/dL Creatinine 1.60 H (0.66-1.25) mg/dL Glucose 146 H (74-99) mg/dL POC Glucose (mg/dL) 123 H (75-99) mg/dL Gabapentin (2.0-12.0) ug/mL Assessment and Plan (1) CHF (congestive heart failure) Status: Acute (2) COPD (chronic obstructive pulmonary disease) Status: Acute (3) CVA (cerebral vascular accident) Status: Acute (4) Hyperlipidemia Status: Acute (5) Hypertension Status: Acute (6) Dyspnea Status: Acute Plan: Plan dated 03/17/2016 The patient 58 the patient did receive some Lasix is morning IV push. In addition we place him on oxygen and actually replace the oxygen with BiPAP. He is BiPAP settings included an IPAP of 10 and EPAP of 5 with enough oxygen bled in to maintain sats in the mid to high 80s. Is a CO2 retainer. His medications and other labs and so forth will be reviewed. His x-rays have been reviewed. Additional recommendations suggestions are forthcoming. He appears much more stable Progress note dated 03/19/2016 Will check to sensitivities of the staph. The patient will continue to receive current medications: Bronchodilators and diuretics. We'll adjust antibiotics accordingly. No additional recommendations are made. Overall prognosis is guarded but the patient does seem to be showing improvement. Based on yesterday 's laboratory data, the Lasix will have to be reduced or discontinued altogether gather as a patient was Becoming quite prerenal alkalotic and hyponatremic. Progress note dated 03/20/2016 The patient's currently on vancomycin for his methicillin-resistant staph aureus infection. His chest x-ray does show improvement. In addition the sputum revealed evidence of Klebsiella pseudomonas and Enterobacter cloaca a. ID consultation recommended. We will continue to follow. The patient's respiratory status has improved. The patient can use of BiPAP only as needed. Time with Patient: Less than 30
[2016-03-20] MEDS: DICLOFENAC SODIUM GEL 100 GM TUBE TOPICAL SCH ×2 (10:35→21:05)
[2016-03-20] MEDS: DOCUSATE 100 MG CAP PO SCH (10:37)
[2016-03-20] MEDS: PANTOPRAZOLE 40 MG/10 ML VIAL IVP SCH ×2 (10:37→21:17)
[2016-03-20] MEDS: PARoxetine 10 MG TAB PO SCH (10:37)
[2016-03-20] MEDS: amLODIPine 10 MG TAB PO SCH (10:37)
[2016-03-20] MEDS: DULoxetine HCL 30 MG CAPSULE.DR PO SCH (10:37)
[2016-03-20] MEDS: METOPROLOL SUCCINATE (ER) 50 MG TAB.ER.24H PO SCH (10:37)
[2016-03-20] MEDS: LACTULOSE 20 GM/30 ML CUP PO SCH (10:38)
[2016-03-20] MEDS: POTASSIUM CHLORIDE 10 MEQ in WATER FOR INJECTION 1 100ML.BAG IVPB SCH ×2 (10:38→15:57)
[2016-03-20] MEDS: FLUTICASONE 50MCG/SPRAY NASAL 16GM EA NOSTRIL SCH ×2 (10:38→21:07)
[2016-03-20] MEDS: DEXTROSE 5% IN WATER 1,000 ML IV SCH (10:38)
[2016-03-20] MEDS: ISOSORBIDE MONONITRATE ER 30 MG TAB.ER.24H PO SCH (10:39)
[2016-03-20] MEDS: TAMSULOSIN 0.4 MG CAP.ER.24H PO SCH (10:40)
[2016-03-20] MEDS: VANCOMYCIN 2,000 MG in SODIUM CHLORIDE 0.9% 500 ML IVPB SCH (10:41)
[2016-03-20 11:41] LABS: Glucose,Whole Blood 122 mg/dL (75-99)
--- NOTE | 2016-03-20 11:55 | P.PN ---
Subjective Patient is seen for follow-up for acute kidney injury. He has been treated for CHF and fluid overload. Lasix is currently on hold. Respiratory status has improved. Patient is not on BiPAP anymore. He is currently awake comfortable answering questions with actions. He is not talking at this time D5W was started for hyponatremia currently at about 50 mL an hour. Serum creatinine is down to 1.6 from around 2 mg/dL initially and staying in about 1.6-1.7 for the last few days. Sodium is down to 157 from 159 yesterday. Objective - Vital Signs Vital signs: Vital Signs Temp 98.6 F 03/20/16 11:28 Pulse 105 H 03/20/16 11:28 Resp 18 03/20/16 11:28 BP 149/93 03/20/16 11:28 Pulse Ox 94 L 03/20/16 11:28 Intake & Output 03/19/16 03/20/16 03/20/16 18:59 06:59 18:59 Intake Total 300 900 118 Output Total 1825 825 Balance -1525 900 -707 Weight 120.5 kg Intake: IV 100 0.9% NaCl with KCl 20 MeQ 100 @50 mls/hr Intake, IV Titration 600 Amount Dextrose 5% in Water 1, 600 000 ml @ 50 mls/hr IV . Q20H [facility] Rx#:[id number] Oral 200 300 118 Output: Urine 1825 825 Uretheral (Seals) 825 Other: Voiding Method Indwelling Catheter Indwelling Catheter Indwelling Catheter # Bowel Movements 1 - Exam On examination patient is comfortable awake is not in any acute distress. Blood pressure is 149/93 heart rate 10 5/m he is afebrile Examination of the heart S1 and S2 Exertion lungs decreased muscle bases occasional crackles are heard in the bases [place] abdomen is soft obese admission [place] extremities shows edema 1+ bilaterally patient is not able to move his right upper and lower extremity. He states he cannot move both legs but he has been moving his left upper extremity. - Labs CBC & Chem 7: 03/20/16 06:16 03/20/16 06:16 Labs: Abnormal Lab Results - Last 24 Hours (Table) 03/16/16 03/19/16 03/19/16 Range/Units 23:56 11:50 12:28 WBC (3.8-10.6) k/uL MCHC (31.0-37.0) g/dL Neutrophils # (1.3-7.7) k/uL Monocytes # (0-1.0) k/uL Sodium (137-145) mmol/L Potassium 3.1 L (3.5-5.1) mmol/L Chloride (98-107) mmol/L Carbon Dioxide (22-30) mmol/L BUN (9-20) mg/dL Creatinine (0.66-1.25) mg/dL Glucose (74-99) mg/dL POC Glucose (mg/dL) 120 H (75-99) mg/dL Gabapentin 25.9 H (2.0-12.0) ug/mL 03/19/16 03/19/16 03/20/16 Range/Units 16:32 22:04 06:16 WBC 13.0 H (3.8-10.6) k/uL MCHC 29.0 L (31.0-37.0) g/dL Neutrophils # 10.4 H (1.3-7.7) k/uL Monocytes # 1.1 H (0-1.0) k/uL Sodium (137-145) mmol/L Potassium (3.5-5.1) mmol/L Chloride (98-107) mmol/L Carbon Dioxide (22-30) mmol/L BUN (9-20) mg/dL Creatinine (0.66-1.25) mg/dL Glucose (74-99) mg/dL POC Glucose (mg/dL) 146 H 116 H (75-99) mg/dL Gabapentin (2.0-12.0) ug/mL 03/20/16 03/20/16 03/20/16 Range/Units 06:16 06:25 11:39 WBC (3.8-10.6) k/uL MCHC (31.0-37.0) g/dL Neutrophils # (1.3-7.7) k/uL Monocytes # (0-1.0) k/uL Sodium 157 H (137-145) mmol/L Potassium (3.5-5.1) mmol/L Chloride 108 H (98-107) mmol/L Carbon Dioxide 34 H (22-30) mmol/L BUN 46 H (9-20) mg/dL Creatinine 1.60 H (0.66-1.25) mg/dL Glucose 146 H (74-99) mg/dL POC Glucose (mg/dL) 123 H 122 H (75-99) mg/dL Gabapentin (2.0-12.0) ug/mL Assessment and Plan Plan: Assessment 1. Acute kidney injury, cardiorenal currently improving. Also component of obstructive uropathy as it appears that 1200 mL was obtained when initial Seals catheter was placed 2. CHF volume overload currently improved 3. Hypernatremia maintained on D5W which was started yesterday. 4. Hypokalemia secondary to diuretics status post replacement. 5. Rule out chronic kidney disease, no previous labs available at this time. Plan Continue D5W for now, may continue with the Lasix as well, repeat labs in a.m.
--- NOTE | 2016-03-20 16:01 | P.PN ---
Subjective Principal diagnosis: CHF This is a 66-year-old gentleman who was admitted to the hospital with congestive cardiac failure. Lasix is currently on hold. Respiratory status has improved significantly. He is awake comfortable answering questions. He is currently on D5 at 50 mL an hour for hyponatremia. He is no longer on BiPAP. Creatinine down to 1.6 from 2. Objective - Vital Signs Vital signs: Vital Signs Temp 98.6 F 03/20/16 11:28 Pulse 104 H 03/20/16 15:49 Resp 18 03/20/16 12:00 BP 149/93 03/20/16 11:28 Pulse Ox 94 L 03/20/16 11:28 Intake & Output 03/19/16 03/20/16 03/20/16 18:59 06:59 18:59 Intake Total 300 900 236 Output Total 1825 1650 Balance -1525 900 -1414 Weight 120.5 kg Intake: IV 100 0.9% NaCl with KCl 20 MeQ 100 @50 mls/hr Intake, IV Titration 600 Amount Dextrose 5% in Water 1, 600 000 ml @ 50 mls/hr IV . Q20H [facility] Rx#:[id number] Oral 200 300 236 Output: Urine 1825 1650 Uretheral (Seasl) 825 Other: Voiding Method Indwelling Catheter Indwelling Catheter Indwelling Catheter # Bowel Movements 1 - Exam PHYSICAL EXAMINATION: HEENT: Head is atraumatic, normocephalic. Pupils equal, round. Neck is supple. There is no elevated jugular venous pressure. HEART EXAMINATION: Heart S1, S2 distant . No murmur or gallop heard. CHEST EXAMINATION: Lungs reveal coarse crackles to bilateral bases. ABDOMEN: Soft, nontender. Bowel sounds are heard. No organomegaly noted. EXTREMITIES: 2+ peripheral pulses with trace evidence of peripheral edema and no calf tenderness noted. NEUROLOGIC [patient is awake, alert , BiPAP in place. - Labs CBC & Chem 7: 03/20/16 06:16 03/20/16 06:16 Labs: Abnormal Lab Results - Last 24 Hours (Table) 03/19/16 03/19/16 03/20/16 Range/Units 16:32 22:04 06:16 WBC 13.0 H (3.8-10.6) k/uL MCHC 29.0 L (31.0-37.0) g/dL Neutrophils # 10.4 H (1.3-7.7) k/uL Monocytes # 1.1 H (0-1.0) k/uL Sodium (137-145) mmol/L Chloride (98-107) mmol/L Carbon Dioxide (22-30) mmol/L BUN (9-20) mg/dL Creatinine (0.66-1.25) mg/dL Glucose (74-99) mg/dL POC Glucose (mg/dL) 146 H 116 H (75-99) mg/dL 03/20/16 03/20/16 03/20/16 Range/Units 06:16 06:25 11:39 WBC (3.8-10.6) k/uL MCHC (31.0-37.0) g/dL Neutrophils # (1.3-7.7) k/uL Monocytes # (0-1.0) k/uL Sodium 157 H (137-145) mmol/L Chloride 108 H (98-107) mmol/L Carbon Dioxide 34 H (22-30) mmol/L BUN 46 H (9-20) mg/dL Creatinine 1.60 H (0.66-1.25) mg/dL Glucose 146 H (74-99) mg/dL POC Glucose (mg/dL) 123 H 122 H (75-99) mg/dL Assessment and Plan Plan: Assessment and plan #1 diastolic congestive heart failure acute on chronic, echocardiogram with Doppler study revealed an ejection fraction of 60-65%. #2 exacerbation of COPD, currently on BiPAP #3 prior CVA #4 hypertension # 5 hyperlipidemia #6 abnormal troponins, not consistent with acute coronary syndrome. Likely secondary to oxygen supply and demand mismatch, echocardiogram revealed normal left ventricular systolic function. #7 possible aspiration pneumonia. #8 remote history of nicotine dependence #9 history of depression Plan From cardiology's perspective, we will recommend to continue to hold Lasix. We will follow this patient with you now on an as-needed basis only please don't hesitate to call with any questions. DNP note has been reviewed, I agree with a documented findings and plan of care. Patient was seen and examined.
[2016-03-20] MEDS: ACETAMINOPHEN TAB 325 MG TAB PO PRN (16:25)
[2016-03-20 17:10] LABS: Glucose,Whole Blood 113 mg/dL (75-99)
--- NOTE | 2016-03-20 18:09 | P.CONS ---
History of Present Illness - Reason for Consult Consult date: 03/20/16 - Chief Complaint Shortness of breath - History of Present Illness 66-year-old male status post stroke with persistent right-sided weakness presents from the [facility] for evaluation of having shortness of breath, fever. Was also having difficulties with nausea and about of emesis. At admission the patient was short of breath and was treated with BiPAP. He is now being treated with oxygen therapy by nasal cannula. He is a poor historian because of his stroke. Asked several times if he is going back to [facility]. That able to provide much more history. Chart reveals that he is doing somewhat better. He seems to be a bit less short of breath. He received multiple respiratory treatments and antibiotic therapy. Review of Systems ROS unobtainable: due to mental status Past Medical History Past Medical History: Heart Failure, COPD, CVA/TIA, Hyperlipidemia, Hypertension , Osteoarthritis (OA) Additional Past Medical History / Comment(s): right sided weakness History of Any Multi-Drug Resistant Organisms: None Reported Past Surgical History: Unable to Obtain Past Anesthesia/Blood Transfusion Reactions: No Reported Reaction Past Psychological History: Depression Smoking Status: Former smoker Past Alcohol Use History: None Reported Past Drug Use History: None Reported - Past Family History Father History Unknown: Yes Mother History Unknown: Yes Medications and Allergies Home Medications and Allergies Comment(s): Current Medications Acetaminophen (Tylenol Tab) 650 mg PO Q6HR PRN PRN Reason: Mild Pain or Fever > 100.5 Last Admin: 03/20/16 16:25 Dose: 650 mg Albuterol/Ipratropium (Duoneb 0.5 Mg-3 Mg/3 Ml Soln) 3 ml INHALATION RT-QID [facility] Last Admin: 03/20/16 15:38 Dose: 3 ml Amlodipine Besylate (Norvasc) 10 mg PO DAILY [facility] Last Admin: 03/20/16 10:37 Dose: 10 mg Budesonide (Pulmicort) 1 mg INHALATION RT-BID [facility] Last Admin: 03/20/16 08:12 Dose: 1 mg Ceftazidime (Fortaz) 2 gm IM Q12HR [facility] Clonazepam (Klonopin) 0.5 mg PO HS [facility] Last Admin: 03/19/16 23:07 Dose: 0.5 mg Diclofenac Sodium (Voltaren Gel) 2 gm TOPICAL BID [facility] Last Admin: 03/20/16 10:35 Dose: 2 gm Docusate Sodium (Colace) 100 mg PO HS [facility] Last Admin: 03/20/16 10:37 Dose: 100 mg Duloxetine HCl (Cymbalta) 30 mg PO DAILY [facility] Last Admin: 03/20/16 10:37 Dose: 30 mg Fluticasone Propionate (Flonase Nasal [place]) 1 spray EA NOSTRIL BID [facility] Last Admin: 03/20/16 10:38 Dose: 1 spray Formoterol Fumarate (Perforomist) 20 mcg INHALATION RT-BID [facility] Last Admin: 03/20/16 08:12 Dose: 20 mcg Vancomycin HCl 2,000 mg/ (Sodium Chloride) 500 mls @ 167 mls/hr IVPB DAILY [facility] Last Admin: 03/20/16 10:41 Dose: 167 mls/hr Dextrose/Water (Dextrose 5%-Water Iv Soln) 1,000 mls @ 50 mls/hr IV .Q20H [facility] Last Admin: 03/20/16 10:38 Dose: 50 mls/hr Insulin Human Lispro (Humalog) 0 unit SQ ACHS [facility] PRN Reason: Protocol Last Admin: 03/20/16 17:26 Dose: Not Given Isosorbide Mononitrate (Imdur) 30 mg PO DAILY [facility] Last Admin: 03/20/16 10:39 Dose: 30 mg Ketoconazole (Nizoral) 1 applic TOPICAL MOTH [facility] Last Admin: 03/20/16 00:36 Dose: 1 applic Lactulose (Cephulac) 20 gm PO DAILY [facility] Last Admin: 03/20/16 10:38 Dose: 20 gm Levetiracetam (Keppra) 250 mg PO Q8H [facility] Last Admin: 03/20/16 15:59 Dose: 250 mg Melatonin (Melatonin) 6 mg PO HS [facility] Last Admin: 03/19/16 22:54 Dose: 6 mg Metoprolol Succinate (Toprol Xl) 50 mg PO DAILY [facility] Last Admin: 03/20/16 10:37 Dose: 50 mg Miscellaneous Information (Magnesium Per Protocol) 1 each MISCELLANE DAILY PRN ; Protocol PRN Reason: Per Protocol Miscellaneous Information (Potassium Per Protocol) 1 each MISCELLANE DAILY PRN ; Protocol PRN Reason: Per Protocol Miscellaneous Information (Vancomycin Trough Due) 0 each MISCELLANE DIRECTED ONE Stop: 03/21/16 08:01 Naloxone HCl (Narcan) 0.2 mg IV Q2M PRN PRN Reason: Opioid Reversal Ondansetron HCl (Zofran) 4 mg IVP Q6HR PRN PRN Reason: Nausea And Vomiting Last Admin: 03/16/16 23:38 Dose: 4 mg Pantoprazole Sodium (Protonix) 40 mg IVP BID [facility] Stop: 03/20/16 23:59 Last Admin: 03/20/16 10:37 Dose: 40 mg Pantoprazole Sodium (Protonix) 40 mg PO BID [facility] Paroxetine HCl (Paxil) 10 mg PO DAILY [facility] Last Admin: 03/20/16 10:37 Dose: 10 mg Pravastatin Sodium (Pravachol) 40 mg PO [facility] Last Admin: 03/19/16 22:55 Dose: 40 mg Senna/Docusate Sodium (Senokot-S) 2 each PO [facility] Last Admin: 03/19/16 23:07 Dose: 2 each Simethicone (Mylicon Chew) 240 mg PO [facility] Last Admin: 03/19/16 22:53 Dose: 240 mg Tamsulosin HCl (Flomax) 0.4 mg PO DAILY [facility] Last Admin: 03/20/16 10:40 Dose: 0.4 mg Home Medications Medication Instructions Recorded Confirmed Type Acetaminophen Tab [Tylenol Tab] 650 mg PO Q4H PRN 03/16/16 03/16/16 History Albuterol Nebulized [Ventolin 2.5 mg INHALATION Q4H PRN 03/16/16 03/16/16 History Nebulized] Aspirin EC [Ecotrin Low Dose] 81 mg PO 03/16/16 03/16/16 History Bisacodyl [Dulcolax] 10 mg RECTAL DAILY PRN 03/16/16 03/16/16 History DULoxetine HCL [Cymbalta] 30 mg PO DAILY 03/16/16 03/16/16 History Diclofenac Sodium [Voltaren Gel] 2 gram TOPICAL BID 03/16/16 03/16/16 History Docusate [Colace] 100 mg PO 03/16/16 03/16/16 History Fluticasone Nasal [place] [Flonase 1 spray EA NOSTRIL BID 03/16/16 03/16/16 History Nasal [place]] Furosemide [Lasix] 80 mg PO BID 03/16/16 03/16/16 History Gabapentin [Neurontin] 900 mg PO Q8H 03/16/16 03/16/16 History Isosorbide Mononitrate ER [Imdur] 30 mg PO DAILY 03/16/16 03/16/16 History Ketoconazole 2% Shampoo [Nizoral] 1 applic TOPICAL MOTH 03/16/16 03/16/16 History Lactulose 20 gm PO DAILY 03/16/16 03/16/16 History Mag Hydrox/Al Hydrox/Simeth 30 ml PO HS 03/16/16 03/16/16 History [Maalox] Mag Hydrox/Al Hydrox/Simeth 30 ml PO PC-TID PRN 03/16/16 03/16/16 History [Maalox] Magnesium Hydroxide [Milk of 2,400 mg PO DAILY PRN 03/16/16 03/16/16 History Magnesia] Melatonin 6 mg PO HS 03/16/16 03/16/16 History Metoprolol Succinate (ER) [Toprol 50 mg PO DAILY 03/16/16 03/16/16 History Xl] [place]-3 Fatty Acids/Fish Oil [Fish 2 cap PO BID 03/16/16 03/16/16 History Oil 1,000 mg Softgel] Omeprazole [PriLOSEC] 20 mg PO DAILY 03/16/16 03/16/16 History PARoxetine [Paxil] 10 mg PO DAILY 03/16/16 03/16/16 History Potassium Chloride ER [K-Dur 10] 10 meq PO DAILY 03/16/16 03/16/16 History Pravastatin Sodium [Pravachol] 40 mg PO HS 03/16/16 03/16/16 History Sennosides/Docusate Sodium 2 tab PO HS 03/16/16 03/16/16 History [Docusate Sodium-Senna Tablet] Simethicone [Gas-X] 250 mg PO HS 03/16/16 03/16/16 History Tamsulosin HCl [Flomax] 0.4 mg PO DAILY 03/16/16 03/16/16 History amLODIPine [Norvasc] 10 mg PO DAILY 03/16/16 03/16/16 History clonazePAM [KlonoPIN] 0.5 mg PO HS 03/16/16 03/16/16 History hydrALAZINE HCL [Apresoline] 50 mg PO Q8H 03/16/16 03/16/16 History levETIRAcetam [Keppra] 250 mg PO Q8H 03/16/16 03/16/16 History oxyCODONE-APAP 7.5-325MG [Percocet 1 tab PO Q6HR 03/16/16 03/16/16 History 7.5-325 mg] predniSONE [Deltasone] 20 mg PO HS 03/16/16 03/16/16 History Allergies Allergy/AdvReac Type Severity Reaction Status Date / Time No Known Allergies Allergy Verified 03/16/16 19:30 Physical Exam Vitals: Vital Signs Temp Pulse Pulse Resp BP Pulse Ox 03/20/16 16:00 98.5 F 109 H 18 137/94 94 L 03/20/16 15:49 104 H 03/20/16 15:41 100 03/20/16 12:00 105 H 18 03/20/16 11:55 108 H 03/20/16 11:43 105 H 03/20/16 11:28 98.6 F 105 H 18 149/93 94 L 03/20/16 08:39 116 H 03/20/16 08:21 112 H 03/20/16 08:20 112 H 03/20/16 08:12 110 H 03/20/16 08:00 99.1 F 105 H 18 153/94 93 L 03/20/16 04:00 97.1 F L 82 20 125/80 98 03/20/16 00:00 98.3 F 93 20 146/89 95 03/19/16 20:00 97.5 F L 98 20 157/92 96 03/19/16 19:10 100 03/19/16 18:55 100 Intake and Output 03/20/16 03/20/16 03/20/16 06:59 14:59 22:59 Intake Total 600 236 Output Total 1650 Balance 600 -1414 Intake: Intake, IV Titration 600 Amount Dextrose 5% in Water 1, 600 000 ml @ 50 mls/hr IV . Q20H [facility] Rx#:[id number] Oral 236 Output: Urine 1650 Uretheral (Seals) 825 Other: Voiding Method Indwelling Catheter Indwelling Catheter Indwelling Catheter Weight 120.5 kg 66-year-old male who suffers from obesity seems comfortable becomes tearful HEENT: Anicteric conjunctiva are injected with crusting. Sclerae are also a bit red and injected nasal mucosa without bleeding. Oral cavity with poor dentition but no thrush is noted Neck: The neck is supple without significant lymphadenopathy or thyromegaly. Lungs: Symmetrical air entry with basilar crackles and expiratory wheezes are heard no keisha bronchial sounds Heart: Irregular with an audible S1 and S2 soft S4 no distinct murmur click or rub PMI was nondisplaced with no heave or thrill Abdomen: Obese Positive bowel sounds soft and nontender without palpable masses or organomegaly. There was no guarding or rebound. Extremities: The upper extremities show evidence of the multiple IV attempts and some ecchymosis. But no steady and lesions are seen. The bilateral extremities have evidence of edema. No cervical in lesions are seen on the heels legs or buttocks Neuro: Awake oriented to person and place he knows that he has not yet [place]. He asked several times to go back. But does not have any other meaningful conversation except that he was cold and wanted to be covered Results CBC & Chem 7: 03/20/16 06:16 03/20/16 06:16 Labs: Abnormal Lab Results - Last 24 Hours (Table) 03/19/16 03/20/16 03/20/16 Range/Units 22:04 06:16 06:16 WBC 13.0 H (3.8-10.6) k/uL MCHC 29.0 L (31.0-37.0) g/dL Neutrophils # 10.4 H (1.3-7.7) k/uL Monocytes # 1.1 H (0-1.0) k/uL Sodium 157 H (137-145) mmol/L Chloride 108 H (98-107) mmol/L Carbon Dioxide 34 H (22-30) mmol/L BUN 46 H (9-20) mg/dL Creatinine 1.60 H (0.66-1.25) mg/dL Glucose 146 H (74-99) mg/dL POC Glucose (mg/dL) 116 H (75-99) mg/dL 03/20/16 03/20/16 03/20/16 Range/Units 06:25 11:39 17:08 WBC (3.8-10.6) k/uL MCHC (31.0-37.0) g/dL Neutrophils # (1.3-7.7) k/uL Monocytes # (0-1.0) k/uL Sodium (137-145) mmol/L Chloride (98-107) mmol/L Carbon Dioxide (22-30) mmol/L BUN (9-20) mg/dL Creatinine (0.66-1.25) mg/dL Glucose (74-99) mg/dL POC Glucose (mg/dL) 123 H 122 H 113 H (75-99) mg/dL Laboratory Results WBC 13.0 k/uL (3.8-10.6) H 03/20/16 06:16 RBC 5.70 m/uL (4.30-5.90) 03/20/16 06:16 Hgb 14.7 gm/dL (13.0-17.5) 03/20/16 06:16 Hct 50.6 % (39.0-53.0) 03/20/16 06:16 MCV 88.8 fL (80.0-100.0) 03/20/16 06:16 MCH 25.8 pg (25.0-35.0) 03/20/16 06:16 MCHC 29.0 g/dL (31.0-37.0) L 03/20/16 06:16 RDW 14.1 % (11.5-15.5) 03/20/16 06:16 Plt Count 316 k/uL (150-450) 03/20/16 06:16 Neutrophils % 79 % 03/20/16 06:16 Lymphocytes % 9 % 03/20/16 06:16 Monocytes % 8 % 03/20/16 06:16 Eosinophils % 0 % 03/20/16 06:16 Basophils % 1 % 03/20/16 06:16 Neutrophils # 10.4 k/uL (1.3-7.7) H 03/20/16 06:16 Lymphocytes # 1.2 k/uL (1.0-4.8) 03/20/16 06:16 Monocytes # 1.1 k/uL (0-1.0) H 03/20/16 06:16 Eosinophils # 0.1 k/uL (0-0.7) 03/20/16 06:16 Basophils # 0.1 k/uL (0-0.2) 03/20/16 06:16 Hypochromasia Marked 03/20/16 06:16 PT 10.2 sec (9.0-12.0) 03/16/16 19:01 INR 1.0 (<1.1) 03/16/16 19:01 APTT 23.9 sec (22.0-30.0) 03/16/16 19:01 Sample Site rrad 03/17/16 08:49 ABG pH 7.53 (7.35-7.45) H 03/17/16 08:49 ABG pCO2 40 mmHg (35-45) 03/17/16 08:49 ABG pO2 64 mmHg (83-108) L 03/17/16 08:49 ABG HCO3 34 mmol/L (21-25) H 03/17/16 08:49 ABG Total CO2 35 mmol/L (19-24) H 03/17/16 08:49 ABG O2 Saturation 94.0 % (94-97) 03/17/16 08:49 ABG Base Excess 10.2 mmol/L 03/17/16 08:49 FiO2 44 % 03/17/16 08:49 Sodium 157 mmol/L (137-145) H 03/20/16 06:16 Potassium 3.5 mmol/L (3.5-5.1) 03/20/16 06:16 Chloride 108 mmol/L (98-107) H 03/20/16 06:16 Carbon Dioxide 34 mmol/L (22-30) H 03/20/16 06:16 Anion Gap 15 mmol/L 03/20/16 06:16 BUN 46 mg/dL (9-20) H 03/20/16 06:16 Creatinine 1.60 mg/dL (0.66-1.25) H 03/20/16 06:16 Est GFR (MDRD) Af Amer 52 (>60 ml/min/1.73 sqM) 03/20/16 06:16 Est GFR (MDRD) Non-Af 43 (>60 ml/min/1.73 sqM) 03/20/16 06:16 Glucose 146 mg/dL (74-99) H 03/20/16 06:16 POC Glucose (mg/dL) 113 mg/dL (75-99) H 03/20/16 17:08 POC Glu Striper Machine ID Norma Morse 03/20/16 17:[address] Glu mg/dL 126 mg/dL 03/16/16 23:56 Hemoglobin A1c 6.0 % (4.2-6.1) 03/16/16 23:56 Plasma Lactic Acid Ben 1.7 mmol/L (0.7-2.0) 03/16/16 23:56 Calcium 9.5 mg/dL (8.4-10.2) 03/20/16 06:16 Magnesium 2.9 mg/dL (1.6-2.3) H 03/19/16 05:57 Total Bilirubin 0.9 mg/dL (0.2-1.3) 03/16/16 19:01 AST 19 U/L (17-59) 03/16/16 19:01 ALT 20 U/L (21-72) L 03/16/16 19:01 Alkaline Phosphatase 87 U/L (38-126) 03/16/16 19:01 Total Creatine Kinase 48 U/L (55-170) L 03/17/16 06:59 CK-MB (CK-2) 0.2 ng/mL (0.0-2.4) 03/17/16 06:59 CK-MB (CK-2) Rel Index 0.4 03/17/16 06:59 Troponin I 0.025 ng/mL (0.000-0.034) 03/17/16 06:59 NT-Pro-B Natriuret Pep 1120 pg/mL 03/16/16 19:01 Total Protein 7.3 g/dL (6.3-8.2) 03/16/16 19:01 Albumin 4.0 g/dL (3.5-5.0) 03/16/16 19:01 Urine Color Yellow 03/16/16 19:01 Urine Appearance Clear (Clear) 03/16/16 19:01 Urine pH 6.0 (5.0-8.0) 03/16/16 19:01 Ur Specific [place] 1.013 (1.001-1.035) 03/16/16 19:01 Urine Protein Trace (Negative) H 03/16/16 19:01 Urine Glucose (UA) Negative (Negative) 03/16/16 19:01 Urine Ketones Negative (Negative) 03/16/16 19:01 Urine Blood Negative (Negative) 03/16/16 19:01 Urine Nitrate Negative (Negative) 03/16/16 19:01 Urine Bilirubin Negative (Negative) 03/16/16 19:01 Urine Urobilinogen <2.0 mg/dL (<2.0) 03/16/16 19:01 Ur Leukocyte Esterase Negative (Negative) 03/16/16 19:01 Gabapentin 25.9 ug/mL (2.0-12.0) H 03/16/16 23:56 Levetiracetam 13.9 ug/mL (3.0-60.0) 03/16/16 23:56 Microbiology 03/16/16 19:36 Sputum Gram Stain - Final 03/16/16 19:36 Sputum Sputum Culture - Final Methicillin resist S. aureus Klebsiella pneumoniae Pseudomonas aeruginosa Enterobacter cloacae 03/16/16 19:01 Blood Blood Culture - Preliminary No Growth after 72 hours 03/16/16 19:01 Urine,Voided Urine Culture - Final Assessment and Plan (1) COPD (chronic obstructive pulmonary disease) Status: Acute (2) Pneumonia due to Gram-negative bacteria Status: Acute (3) Conjunctivitis Status: Acute
[2016-03-20] MEDS: BACITRACIN/POLYMYX 500-10,000 UNIT/GM OPHTH OINT 3.5 GM TUBE BOTH EYES SCH ×2 (18:47→21:10)
--- NOTE | 2016-03-20 18:57 | PN ---
DATE OF SERVICE: 03/20/2016 This 66-year-old woman was admitted with multiple medical problems including chronic obstructive pulmonary disease and congestive heart failure and shortness of breath, has been closely monitored. The patient also using CPAP and BiPAP at bedtime. Seen and evaluated the patient along with the nurse practitioner. Please refer to the nurse practitioner notes and impression documented for further information. Currently will continue with bronchodilators and the most recent chest x-ray done yesterday showed improvement in the volume status. Continue to monitor. Prognosis guarded. Note: Acute hypoxic resp failure MTDD
[2016-03-20 20:36] LABS: Glucose,Whole Blood 170 mg/dL (75-99)
[2016-03-20] MEDS: PRAVASTATIN SODIUM 40 MG TAB PO SCH (21:09)
[2016-03-20] MEDS: MELATONIN 3 MG TABLET PO SCH (21:09)
[2016-03-20] MEDS: SIMETHICONE 80 MG CHEWABLE PO SCH (21:10)
[2016-03-20] MEDS: clonazePAM 0.5 MG TAB PO SCH (21:17)
[2016-03-20] MEDS: SENNOSIDES-DOCUSATE SODIUM 1 EACH TAB PO SCH (21:17)
[2016-03-21] MEDS: DEXTROSE 5% IN WATER 1,000 ML IV SCH ×2 (02:35→08:35)
[2016-03-21 06:21] LABS: Glucose,Whole Blood 172 mg/dL (75-99)
[2016-03-21] MEDS: INSULIN LISPRO (humaLOG) 300 UNIT/3 ML VIAL SQ SCH ×4 (06:43→21:47)
[2016-03-21] MEDS: levETIRAcetam 250 MG TAB PO SCH ×3 (06:44→23:35)
[2016-03-21] MEDS ORDERED: VANCOMYCIN TROUGH DUE 1 EACH MISC MISCELLANE ONE (08:00)
[2016-03-21] MEDS: BUDESONIDE 1 MG/2 ML NEBU INHALATION SCH (08:01)
[2016-03-21] MEDS: IPRATROPIUM-ALBUTEROL 3 ML NEB INHALATION SCH ×4 (08:01→20:19)
[2016-03-21] MEDS: FORMOTEROL FUMARATE 20 MCG/2 ML NEBU INHALATION SCH (08:01)
[2016-03-21 08:40] LABS: Basophils # (A) 0.1 k/uL (0-0.2); Basophils % (A) 1 %; CH 26.2; CHCM 29.5; Eosinophils # (A) 0.3 k/uL (0-0.7); Eosinophils % (A) 2 %; HCT 50.2 % (39.0-53.0); HDW 2.49; HGB 14.6 gm/dL (13.0-17.5); Hypochromasia Marked; Luc # (Auto) 0.23; Luc % (Auto) 2; Lymphocytes # (A) 1.2 k/uL (1.0-4.8); Lymphocytes % (A) 9 %; MCH 25.9 pg (25.0-35.0); MCHC 29.1 g/dL (31.0-37.0); MCV 89.2 fL (80.0-100.0); Mean Platelet Volume 8.3; Monocytes # (A) 0.9 k/uL (0-1.0); Monocytes % (A) 6 %; Neutrophils # (A) 11.2 k/uL (1.3-7.7); Neutrophils % (A) 81 %; RBC 5.63 m/uL (4.30-5.90); RDW 14.1 % (11.5-15.5); WBC 13.8 k/uL (3.8-10.6); WBC (Perox) 13.73
--- NOTE | 2016-03-21 08:49 | P.PN ---
Subjective Patient is seen in follow-up for acute kidney injury and volume overload. Patient presented with dyspnea and was maintained on diuretics. Diuretics are now held. Renal function has been stable with creatinine in the range of 1.6- 1.7 for the last 3-4 days. Unclear as to what his baseline renal function is. Labs from today are pending at this time. He also has a Seals catheter in place for urinary retention. His appetite has been poor. He is maintained on D5 W and sodium level was 157 as of yesterday. Vital signs are stable. General: The patient appeared well nourished and normally developed. HEENT: Head exam is unremarkable. Neck is without jugular venous distension. LUNGS: Lungs are clear to auscultation and percussion. Breath sounds decreased. HEART: Rate and Rhythm are regular. First and second heart sounds normal. No murmurs, rubs or gallops. ABDOMEN: Abdominal exam reveals normal bowel sounds. Non-tender and non- distended. No evidence of peritonitis. EXTREMITITES: No clubbing, cyanosis, or edema. Objective - Vital Signs Vital signs: Vital Signs Temp 99.3 F 03/21/16 08:44 Pulse 77 03/21/16 08:44 Resp 18 03/21/16 08:44 BP 145/92 03/21/16 08:44 Pulse Ox 100 03/21/16 08:44 Intake & Output 03/20/16 03/21/16 03/21/16 18:59 06:59 18:59 Intake Total 472 Output Total 1650 1400 Balance -1178 -1400 Weight 120 kg Intake: Oral 472 Output: Urine 1650 1400 Uretheral ([place]) 825 Other: Voiding Method Indwelling Catheter Indwelling Catheter # Voids 1 - Labs CBC & Chem 7: 03/21/16 08:06 03/20/16 06:16 Labs: Abnormal Lab Results - Last 24 Hours (Table) 03/20/16 03/20/16 03/20/16 Range/Units 11:39 17:08 20:34 WBC (3.8-10.6) k/uL MCHC (31.0-37.0) g/dL Neutrophils # (1.3-7.7) k/uL POC Glucose (mg/dL) 122 H 113 H 170 H (75-99) mg/dL 03/21/16 03/21/16 Range/Units 06:07 08:06 WBC 13.8 H (3.8-10.6) k/uL MCHC 29.1 L (31.0-37.0) g/dL Neutrophils # 11.2 H (1.3-7.7) k/uL POC Glucose (mg/dL) 172 H (75-99) mg/dL Assessment and Plan Plan: Assessment: #1. Nonoliguric acute kidney injury mostly cardiorenal in nature with a component of obstructive uropathy. Renal function stable to last few days with creatinine near 1.6. Unclear as to what his baseline renal function is. #2. Urinary retention status post Seals catheter placement. He is nonoliguric. #3. Hypernatremia secondary to lack off oral water intake. Sodium level 157 as of yesterday. #4. Diastolic CHF. Plan: Maintain D5W to be run at 50 mL an hour. Encourage oral intake as tolerated. Avoid nephrotoxic agents and hypotensive episodes. Maintain Seals catheter. Follow-up morning labs and repeat electrolytes in the morning.
[2016-03-21 08:50] LABS: Calcium 9.3 mg/dL (8.4-10.2); Potassium 3.4 mmol/L (3.5-5.1)
[2016-03-21] MEDS: PARoxetine 10 MG TAB PO SCH (10:00)
[2016-03-21] MEDS: amLODIPine 10 MG TAB PO SCH (10:01)
[2016-03-21] MEDS: PANTOPRAZOLE 40 MG TABLET PO SCH ×2 (10:01→21:49)
[2016-03-21] MEDS: BACITRACIN/POLYMYX 500-10,000 UNIT/GM OPHTH OINT 3.5 GM TUBE BOTH EYES SCH ×4 (10:01→21:50)
[2016-03-21] MEDS: ISOSORBIDE MONONITRATE ER 30 MG TAB.ER.24H PO SCH (10:01)
[2016-03-21] MEDS: DULoxetine HCL 30 MG CAPSULE.DR PO SCH (10:01)
[2016-03-21] MEDS: METOPROLOL SUCCINATE (ER) 50 MG TAB.ER.24H PO SCH (10:01)
[2016-03-21] MEDS: LACTULOSE 20 GM/30 ML CUP PO SCH (10:01)
[2016-03-21] MEDS: TAMSULOSIN 0.4 MG CAP.ER.24H PO SCH (10:01)
[2016-03-21] MEDS: DICLOFENAC SODIUM GEL 100 GM TUBE TOPICAL SCH ×2 (10:02→21:46)
[2016-03-21] MEDS: FLUTICASONE 50MCG/SPRAY NASAL 16GM EA NOSTRIL SCH ×2 (10:02→21:47)
[2016-03-21] MEDS: VANCOMYCIN 2,000 MG in SODIUM CHLORIDE 0.9% 500 ML IVPB SCH (10:23)
[2016-03-21 12:05] LABS: Glucose,Whole Blood 110 mg/dL (75-99)
--- NOTE | 2016-03-21 12:10 | P.PN ---
Subjective Progress note dated 03/19/2016 The patient had an 18 call when he developed respiratory distress. He was placed on BiPAP at 10 and 5 and 50%. The patient continues to improve. Less short of breath. He's Primus been maintained on BiPAP and, come off the BiPAP and go back to nasal prongs. The patient did have a chest x-ray which suggested some pneumonitis versus a mild pulmonary venous hypertension and mild heart failure. His sputum showed staph aureus. He was given vancomycin yesterday pending the sensitivities. Progress note dated 03/20/2016 This is a 66-year-old man who initially presented with respiratory distress. The respiratory difficulty was probably multifactorial in part related to underlying fluid overload but also related to underlying infection of the lung he's very purulent tracheobronchitis or pneumonitis. The sputum apparently grew a number different things including Pseudomonas Klebsiella Enterobacter and methicillin-resistant staph aureus. He is currently only on vancomycin as an antibiotic. It would probably be beneficial to have ID see the patient and make some recommendations in regards to which antibiotics the patient would be best served on. The patient seemed relatively stable today. Difficult for him to verbalize his complaints. Does not appear to be in any significant distress. Progress note dated 03/21/2016 This 66-year-old gentleman continues to show show slow improvement. His respiratory status has improved. Has a history of underlying fluid overload as well as pulmonary infection. The infection is probably more of a purulent tracheobronchitis versus a pneumonia. His sputum. Number different pathogens including Pseudomonas Klebsiella Enterobacter and methicillin-resistant staph aureus. I asked Dr. Ashton the infectious disease specialist to see him again come up with the recommendation regards to antibiotics. From the pulmonary standpoint no, the patient doing much better. Objective - Vital Signs Vital signs: Vital Signs Temp 97.8 F 03/21/16 11:33 Pulse 87 03/21/16 11:33 Resp 18 03/21/16 11:33 BP 156/96 03/21/16 11:33 Pulse Ox 91 L 03/21/16 11:44 Intake & Output 03/20/16 03/21/16 03/21/16 18:59 06:59 18:59 Intake Total 472 126 Output Total 1650 1400 Balance -1178 -1400 126 Weight 120 kg Intake: Oral 472 126 Output: Urine 1650 1400 Uretheral (Seals) 825 Other: Voiding Method Indwelling Catheter Indwelling Catheter Indwelling Catheter # Voids 1 - Exam No acute distress, oriented 3. He is alert. HEENT examination is grossly unremarkable. Mucous membranes are moist. Neck supple. Full range of motion. No adenopathy. Cardiovascular examination reveals regular rhythm rate. S1-S2 normal. No heart murmur. No S3-S4. Lungs reveal few scattered crackles and a few scattered rhonchi. Breath sounds are generally improved. Breath sounds are slightly diminished. The patient does not take a deep breath. Abdomen soft. Extremities Reveal very mild edema. - Labs CBC & Chem 7: 03/21/16 08:06 03/21/16 08:06 Labs: Abnormal Lab Results - Last 24 Hours (Table) 03/20/16 03/20/16 03/21/16 Range/Units 17:08 20:34 06:07 WBC (3.8-10.6) k/uL MCHC (31.0-37.0) g/dL Neutrophils # (1.3-7.7) k/uL Sodium (137-145) mmol/L Potassium (3.5-5.1) mmol/L Chloride (98-107) mmol/L Carbon Dioxide (22-30) mmol/L BUN (9-20) mg/dL Creatinine (0.66-1.25) mg/dL Glucose (74-99) mg/dL POC Glucose (mg/dL) 113 H 170 H 172 H (75-99) mg/dL 03/21/16 03/21/16 03/21/16 Range/Units 08:06 08:06 12:04 WBC 13.8 H (3.8-10.6) k/uL MCHC 29.1 L (31.0-37.0) g/dL Neutrophils # 11.2 H (1.3-7.7) k/uL Sodium 157 H (137-145) mmol/L Potassium 3.4 L (3.5-5.1) mmol/L Chloride 109 H (98-107) mmol/L Carbon Dioxide 36 H (22-30) mmol/L BUN 37 H (9-20) mg/dL Creatinine 1.57 H (0.66-1.25) mg/dL Glucose 124 H (74-99) mg/dL POC Glucose (mg/dL) 110 H (75-99) mg/dL Assessment and Plan (1) CHF (congestive heart failure) Status: Acute (2) COPD (chronic obstructive pulmonary disease) Status: Acute (3) CVA (cerebral vascular accident) Status: Acute (4) Hyperlipidemia Status: Acute (5) Hypertension Status: Acute (6) Dyspnea Status: Acute Plan: Plan dated 03/17/2016 The patient 58 the patient did receive some Lasix is morning IV push. In addition we place him on oxygen and actually replace the oxygen with BiPAP. He is BiPAP settings included an IPAP of 10 and EPAP of 5 with enough oxygen bled in to maintain sats in the mid to high 80s. Is a CO2 retainer. His medications and other labs and so forth will be reviewed. His x-rays have been reviewed. Additional recommendations suggestions are forthcoming. He appears much more stable Progress note dated 03/19/2016 Will check to sensitivities of the staph. The patient will continue to receive current medications: Bronchodilators and diuretics. We'll adjust antibiotics accordingly. No additional recommendations are made. Overall prognosis is guarded but the patient does seem to be showing improvement. Based on yesterday 's laboratory data, the Lasix will have to be reduced or discontinued altogether gather as a patient was Becoming quite prerenal alkalotic and hyponatremic. Progress note dated 03/20/2016 The patient's currently on vancomycin for his methicillin-resistant staph aureus infection. His chest x-ray does show improvement. In addition the sputum revealed evidence of Klebsiella pseudomonas and Enterobacter cloaca a. ID consultation recommended. We will continue to follow. The patient's respiratory status has improved. The patient can use of BiPAP only as needed. Progress note dated 03/21/2016 The patient is doing much better. Medications are reviewed. Dr. Ashton is input is appreciated. No additional recommendations are made. Pulmozyme status is slowly improving.
[2016-03-21 17:19] LABS: Glucose,Whole Blood 139 mg/dL (75-99)
[2016-03-21] MEDS ORDERED: Potassium Replacement Protocol 1 EACH MISC MISCELLANE PRN (17:47)
[2016-03-21] MEDS ORDERED: POTASSIUM CHLORIDE ER 20 MEQ TAB.ER PO SCH (18:00)
[2016-03-21 20:04] LABS: Glucose,Whole Blood 135 mg/dL (75-99)
[2016-03-21] MEDS: SYMBICORT 160-4.5 MCG INHALER INHALATION SCH (20:20)
[2016-03-21] MEDS: clonazePAM 0.5 MG TAB PO SCH (21:46)
[2016-03-21] MEDS: DOCUSATE 100 MG CAP PO SCH (21:47)
[2016-03-21] MEDS: MELATONIN 3 MG TABLET PO SCH (21:49)
[2016-03-21] MEDS: PRAVASTATIN SODIUM 40 MG TAB PO SCH (21:49)
[2016-03-21] MEDS: SENNOSIDES-DOCUSATE SODIUM 1 EACH TAB PO SCH (21:49)
[2016-03-21] MEDS: SIMETHICONE 80 MG CHEWABLE PO SCH (21:50)
--- NOTE | 2016-03-21 23:24 | P.PN ---
Subjective Date of service 03/18/2016 Progress note being dictated for Dr. Nunez. Interval history: This a 66-year-old gentleman admitted with shortness of breath , acute COPD and CHF exacerbation, acute hypoxic respiratory failure and multiple other medical issues. Sputum Gram stain reporting presumptive staph aureus and gram-negative bacilli, vancomycin added to the antibiotic regime, in addition to Levaquin. Diuresing well on Lasix IV push with 24-hour I&O reflecting a negative fluid balance. Maintained on BiPAP. Hypokalemic, potassium 3.1, hypernatremic. Evaluated by a nephrology with recommendations noted. Denies chest pain or palpitations. Echo reporting preserved LV function , dilated aortic root 3.7 cm. Objective - Vital Signs Vital signs: Vital Signs Temp 98.6 F 03/20/16 11:28 Pulse 105 H 03/20/16 12:00 Resp 18 03/20/16 12:00 BP 149/93 03/20/16 11:28 Pulse Ox 94 L 03/20/16 11:28 Intake & Output 03/19/16 03/20/16 03/20/16 18:59 06:59 18:59 Intake Total 300 900 236 Output Total 1825 1650 Balance -1525 900 -1414 Weight 120.5 kg Intake: IV 100 0.9% NaCl with KCl 20 MeQ 100 @50 mls/hr Intake, IV Titration 600 Amount Dextrose 5% in Water 1, 600 000 ml @ 50 mls/hr IV . Q20H [facility] Rx#:[id number] Oral 200 300 236 Output: Urine 1825 1650 Uretheral (Seals) 825 Other: Voiding Method Indwelling Catheter Indwelling Catheter Indwelling Catheter # Bowel Movements 1 - Exam PHYSICAL EXAM: VITAL SIGNS: Temperature 97 axillary, heart rate 92, respiratory rate 22 blood pressure 133/75, O2 sat 91L GENERAL: [Sitting up in bed, wearing BiPAP mask ] HEENT: conjunctiva normal.] NECK: [Supple, no JVD] RESPIRATORY EFFORT:[Increased] LUNGS: [Bilateral bases diminished with scattered rhonchi throughout, fine bibasilar crackles] CARDIOVASCULAR[regular S1 and S2, no murmurs, positive edema] GI: [Abdomen soft, nontender, positive bowel sounds.] PSYCH: [Alert and oriented ,&O X 2,mood and affect normal.] NEURO: Generalized diffuse weakness - Labs CBC & Chem 7: 01/07/17 08:06 03/21/16 08:06 Labs: Abnormal Lab Results - Last 24 Hours (Table) 03/19/16 03/19/16 03/20/16 Range/Units 16:32 22:04 06:16 WBC 13.0 H (3.8-10.6) k/uL MCHC 29.0 L (31.0-37.0) g/dL Neutrophils # 10.4 H (1.3-7.7) k/uL Monocytes # 1.1 H (0-1.0) k/uL Sodium (137-145) mmol/L Chloride (98-107) mmol/L Carbon Dioxide (22-30) mmol/L BUN (9-20) mg/dL Creatinine (0.66-1.25) mg/dL Glucose (74-99) mg/dL POC Glucose (mg/dL) 146 H 116 H (75-99) mg/dL 03/20/16 03/20/16 03/20/16 Range/Units 06:16 06:25 11:39 WBC (3.8-10.6) k/uL MCHC (31.0-37.0) g/dL Neutrophils # (1.3-7.7) k/uL Monocytes # (0-1.0) k/uL Sodium 157 H (137-145) mmol/L Chloride 108 H (98-107) mmol/L Carbon Dioxide 34 H (22-30) mmol/L BUN 46 H (9-20) mg/dL Creatinine 1.60 H (0.66-1.25) mg/dL Glucose 146 H (74-99) mg/dL POC Glucose (mg/dL) 123 H 122 H (75-99) mg/dL Assessment and Plan Plan: 1. Acute hypoxic respiratory failure secondary to acute congestive heart failure exacerbation, diastolic dysfunction, EF 60-65%, bilateral aspiration pneumonia with presumptive staph aureus and gram-negative bacilli, and acute COPD exacerbation, present on admission. 2. Severe hypokalemia 3. Acute renal failure, possibly prerenal with acute tubular necrosis 4. [Vomiting, possible acute gastritis]. 5. Hypernatremia 6. Morbid Obesity, BMI 39.1. 7. History of TIA, CVA with right hemiplegia. 8. History of COPD 9. Hypertension 10. Hyperlipidemia 11. DJD 12. Depression 13. Remote history of nicotine dependence 14. Intermittent troponin, 0.05 Plan: Continue on current medication regime, nebulized bronchodilators, antibiotics, steroids, monitoring and symptomatic treatment. Potassium supplements ordered, close monitoring of electrolytes with repeat labs ordered in a.m. weaning of BiPAP in progress. Follow closely with cardiology and pulmonary. Gnosis guarded given multiple complex medical issues. The impression and plan of care has been dictated as directed. : I performed a H&P examination of this patient and discussed the same with the dictator. I agree with the dictator's note. Any additional findings/opinions/ etc. will be noted.
--- NOTE | 2016-03-21 23:50 | P.PN ---
Subjective Date of service 03/19/2016 Progress note being dictated for Dr. Nunez. Interval history: This a 66-year-old gentleman admitted with shortness of breath , acute COPD and CHF exacerbation, acute hypoxic respiratory failure and multiple other medical issues. Maintained on nebulized bronchodilators, antibiotics, steroids with breathing slowly improving. Diuresing well on Lasix IV push with 24-hour I&O reflecting a negative fluid balance. Chest x-ray reporting improvement in volume status. Lasix now discontinued. Renal function slowly improving. Currently on BiPAP, earlier had been on 15 L high flow nasal cannula. Hypernatremic, IV fluids of D5W initiated. Denies chest pain or palpitations. Objective - Vital Signs Vital signs: Vital Signs Temp 98.6 F 03/20/16 11:28 Pulse 105 H 03/20/16 12:00 Resp 18 03/20/16 12:00 BP 149/93 03/20/16 11:28 Pulse Ox 94 L 03/20/16 11:28 Intake & Output 03/19/16 03/20/16 03/20/16 18:59 06:59 18:59 Intake Total 300 900 236 Output Total 1825 1650 Balance -1525 900 -1414 Weight 120.5 kg Intake: IV 100 0.9% NaCl with KCl 20 MeQ 100 @50 mls/hr Intake, IV Titration 600 Amount Dextrose 5% in Water 1, 600 000 ml @ 50 mls/hr IV . Q20H [facility] Rx#:[id number] Oral 200 300 236 Output: Urine 1825 1650 Uretheral (Seals) 825 Other: Voiding Method Indwelling Catheter Indwelling Catheter Indwelling Catheter # Bowel Movements 1 - Exam PHYSICAL EXAM: VITAL SIGNS: Temperature 98 F, pulse 84, respiratory rate 20, blood pressure 151 /89, O2 sat 97L GENERAL: [Sitting up in bed, wearing BiPAP mask intermittently] HEENT: conjunctiva normal.] NECK: [Supple, no JVD] RESPIRATORY EFFORT:[Increased] LUNGS: [Bilateral bases diminished with scattered rhonchi throughout, fine bibasilar crackles] CARDIOVASCULAR[regular S1 and S2, no murmurs, positive edema] GI: [Abdomen soft, nontender, positive bowel sounds.] PSYCH: [Alert and oriented ,&O X 2,mood and affect normal.] NEURO: Generalized diffuse weakness - Labs CBC & Chem 7: 03/21/16 08:06 03/21/16 22:30 Labs: Abnormal Lab Results - Last 24 Hours (Table) 03/19/16 03/19/16 03/20/16 Range/Units 16:32 22:04 06:16 WBC 13.0 H (3.8-10.6) k/uL MCHC 29.0 L (31.0-37.0) g/dL Neutrophils # 10.4 H (1.3-7.7) k/uL Monocytes # 1.1 H (0-1.0) k/uL Sodium (137-145) mmol/L Chloride (98-107) mmol/L Carbon Dioxide (22-30) mmol/L BUN (9-20) mg/dL Creatinine (0.66-1.25) mg/dL Glucose (74-99) mg/dL POC Glucose (mg/dL) 146 H 116 H (75-99) mg/dL 03/20/16 03/20/16 03/20/16 Range/Units 06:16 06:25 11:39 WBC (3.8-10.6) k/uL MCHC (31.0-37.0) g/dL Neutrophils # (1.3-7.7) k/uL Monocytes # (0-1.0) k/uL Sodium 157 H (137-145) mmol/L Chloride 108 H (98-107) mmol/L Carbon Dioxide 34 H (22-30) mmol/L BUN 46 H (9-20) mg/dL Creatinine 1.60 H (0.66-1.25) mg/dL Glucose 146 H (74-99) mg/dL POC Glucose (mg/dL) 123 H 122 H (75-99) mg/dL Assessment and Plan Plan: 1. Acute hypoxic respiratory failure secondary to acute congestive heart failure exacerbation, diastolic dysfunction, EF 60-65%, bilateral aspiration pneumonia with presumptive staph aureus and gram-negative bacilli, and acute COPD exacerbation, present on admission. 2. Severe hypokalemia 3. Acute renal failure, possibly prerenal with acute tubular necrosis 4. [Vomiting, possible acute gastritis]. 5. Hypernatremia 6. Morbid Obesity, BMI 39.1. 7. History of TIA, CVA with right hemiplegia. 8. History of COPD 9. Hypertension 10. Hyperlipidemia 11. DJD 12. Depression 13. Remote history of nicotine dependence 14. Intermittent troponin, 0.05 15. Dilated aortic root 3.7 cm. 16. Hypermagnesemia Plan: Continue on current medication regime, nebulized bronchodilators, antibiotics, steroids, monitoring and symptomatic treatment. Speech therapy consulted for swallow evaluation. Close monitoring of electrolytes with repeat labs ordered in a.m. Magnesium elevated, MOM dcd. Prognosis guarded given multiple complex medical issues. The impression and plan of care has been dictated as directed. : I performed a H&P examination of this patient and discussed the same with the dictator. I agree with the dictator's note. Any additional findings/opinions/ etc. will be noted.
--- NOTE | 2016-03-22 00:15 | P.PN ---
Subjective Date of service 03/20/2016 Progress note being dictated for Dr. Nunez. Interval history: This a 66-year-old gentleman admitted with shortness of breath , acute COPD and CHF exacerbation, acute hypoxic respiratory failure and multiple other medical issues. Maintained on nebulized bronchodilators, antibiotics, steroids with breathing slowly improving. BiPAP at bedside, currently on 15 L high flow nasal cannula. Sputum culture reporting MRSA, Klebsiella pneumoniae, Pseudomonas aeruginosa, Enterobacter cloacae. Renal function continues to improve. Hypernatremic,slowly improving on IV fluids of D5W. Swallow evaluation per speech therapy; pured diet with thin liquids recommended at this time. Denies chest pain or palpitations. Objective - Vital Signs Vital signs: Vital Signs Temp 98.6 F 03/20/16 11:28 Pulse 105 H 03/20/16 12:00 Resp 18 03/20/16 12:00 BP 149/93 03/20/16 11:28 Pulse Ox 94 L 03/20/16 11:28 Intake & Output 03/19/16 03/20/16 03/20/16 18:59 06:59 18:59 Intake Total 300 900 236 Output Total 1825 1650 Balance -1525 900 -1414 Weight 120.5 kg Intake: IV 100 0.9% NaCl with KCl 20 MeQ 100 @50 mls/hr Intake, IV Titration 600 Amount Dextrose 5% in Water 1, 600 000 ml @ 50 mls/hr IV . Q20H [facility] Rx#:[id number] Oral 200 300 236 Output: Urine 1825 1650 Uretheral (Seals) 825 Other: Voiding Method Indwelling Catheter Indwelling Catheter Indwelling Catheter # Bowel Movements 1 - Exam PHYSICAL EXAM: VITAL SIGNS: as above. GENERAL: [Sitting up in bed, wearing BiPAP mask intermittently] HEENT: conjunctiva normal.] NECK: [Supple, no JVD] RESPIRATORY EFFORT:[Increased] LUNGS: [Bilateral bases diminished with scattered rhonchi throughout, fine bibasilar crackles, occasional expiratory wheeze] CARDIOVASCULAR[regular S1 and S2, no murmurs, positive edema] GI: [Abdomen soft, nontender, positive bowel sounds.] PSYCH: [Alert and oriented ,&O X 2,mood and affect normal.] NEURO: Generalized diffuse weakness Microbiology 03/16/16 19:01 Blood Blood Culture - Preliminary No Growth after 120 hours 03/16/16 19:36 Sputum Gram Stain - Final 03/16/16 19:36 Sputum Sputum Culture - Final Methicillin resist S. aureus Klebsiella pneumoniae Pseudomonas aeruginosa Enterobacter cloacae 03/16/16 19:01 Urine,Voided Urine Culture - Final - Labs CBC & Chem 7: 03/21/16 08:06 03/21/16 22:30 Labs: Abnormal Lab Results - Last 24 Hours (Table) 03/19/16 03/19/16 03/20/16 Range/Units 16:32 22:04 06:16 WBC 13.0 H (3.8-10.6) k/uL MCHC 29.0 L (31.0-37.0) g/dL Neutrophils # 10.4 H (1.3-7.7) k/uL Monocytes # 1.1 H (0-1.0) k/uL Sodium (137-145) mmol/L Chloride (98-107) mmol/L Carbon Dioxide (22-30) mmol/L BUN (9-20) mg/dL Creatinine (0.66-1.25) mg/dL Glucose (74-99) mg/dL POC Glucose (mg/dL) 146 H 116 H (75-99) mg/dL 03/20/16 03/20/16 03/20/16 Range/Units 06:16 06:25 11:39 WBC (3.8-10.6) k/uL MCHC (31.0-37.0) g/dL Neutrophils # (1.3-7.7) k/uL Monocytes # (0-1.0) k/uL Sodium 157 H (137-145) mmol/L Chloride 108 H (98-107) mmol/L Carbon Dioxide 34 H (22-30) mmol/L BUN 46 H (9-20) mg/dL Creatinine 1.60 H (0.66-1.25) mg/dL Glucose 146 H (74-99) mg/dL POC Glucose (mg/dL) 123 H 122 H (75-99) mg/dL Assessment and Plan Plan: 1. Acute hypoxic respiratory failure secondary to acute congestive heart failure exacerbation, diastolic dysfunction, EF 60-65%, bilateral aspiration pneumonia with MRSA, Klebsiella pneumoniae, Pseudomonas aeruginosa, Enterobacter cocaine, and acute COPD exacerbation, present on admission. 2. Severe hypokalemia 3. Acute renal failure, possibly prerenal with acute tubular necrosis 4. [Vomiting, possible acute gastritis]. 5. Hypernatremia 6. Morbid Obesity, BMI 39.1. 7. History of TIA, CVA with right hemiplegia. 8. History of COPD 9. Hypertension 10. Hyperlipidemia 11. DJD 12. Depression 13. Remote history of nicotine dependence 14. Intermittent troponin, 0.05 15. Dilated aortic root 3.7 cm. 16. Hypermagnesemia Plan: Continue on current medication regime, nebulized bronchodilators, antibiotics, steroids, monitoring and symptomatic treatment. Electrolyte supplements as ordered. Antibiotics as per ID. Speech therapy recommending pur ed diet with thin liquids with progression to regular diet. Close monitoring of electrolytes with repeat labs ordered in am. Prognosis guarded given multiple complex medical issues. The impression and plan of care has been dictated as directed. : I performed a H&P examination of this patient and discussed the same with the dictator. I agree with the dictator's note. Any additional findings/opinions/ etc. will be noted.
[2016-03-22 05:28] LABS: Glucose,Whole Blood 250 mg/dL (75-99)
[2016-03-22] MEDS: levETIRAcetam 250 MG TAB PO SCH ×3 (06:10→22:36)
[2016-03-22] MEDS: INSULIN LISPRO (humaLOG) 300 UNIT/3 ML VIAL SQ SCH ×4 (06:11→22:37)
[2016-03-22 07:01] LABS: Anion Gap 12 mmol/L; Blood Urea Nitrogen 28 mg/dL (9-20); Calcium 8.7 mg/dL (8.4-10.2); Carbon Dioxide 33 mmol/L (22-30); Chloride 108 mmol/L (98-107); Glucose 120 mg/dL (74-99); Magnesium 2.8 mg/dL (1.6-2.3); Non-African American GFR(MDRD) 50 (>60 ml/min/1.73 sqM); Potassium 3.5 mmol/L (3.5-5.1); Sodium 153 mmol/L (137-145)
[2016-03-22] MEDS ORDERED: Potassium Replacement Protocol 1 EACH MISC MISCELLANE PRN (07:39)
[2016-03-22] MEDS: IPRATROPIUM-ALBUTEROL 3 ML NEB INHALATION SCH ×4 (08:23→19:54)
[2016-03-22] MEDS: SYMBICORT 160-4.5 MCG INHALER INHALATION SCH ×2 (08:23→19:54)
[2016-03-22] MEDS ORDERED: DEXTROSE 5% IN WATER 1,000 ML IV ONE (09:05)
--- NOTE | 2016-03-22 09:05 | P.PN ---
Subjective Patient is seen in follow-up for acute kidney injury and volume overload. Patient presented with dyspnea and was maintained on diuretics. Diuretics are now held. Renal function has been stable with creatinine in the range of 1.6- 1.7 for the last 3-4 days and is improved to 1.4 today. Unclear as to what his baseline renal function is. He also has a Seals catheter in place for urinary retention. His appetite has been poor. He is maintained on D5W and sodium level is down to 153 today. Vital signs are stable. General: The patient appeared well nourished and normally developed. HEENT: Head exam is unremarkable. Neck is without jugular venous distension. LUNGS: Lungs are clear to auscultation and percussion. Breath sounds decreased. HEART: Rate and Rhythm are regular. First and second heart sounds normal. No murmurs, rubs or gallops. ABDOMEN: Abdominal exam reveals normal bowel sounds. Non-tender and non- distended. No evidence of peritonitis. EXTREMITITES: No clubbing, cyanosis, or edema. Objective - Vital Signs Vital signs: Vital Signs Temp 97.3 F L 03/22/16 04:00 Pulse 92 03/22/16 08:35 Resp 18 03/22/16 04:00 BP 134/87 03/22/16 04:00 Pulse Ox 94 L 03/22/16 04:00 Intake & Output 03/21/16 03/22/16 03/22/16 18:59 06:59 18:59 Intake Total 238 Output Total 800 2000 Balance -562 -2000 Weight 121 kg Intake: Oral 238 Output: Urine 800 2000 Other: Voiding Method Indwelling Catheter Indwelling Catheter # Voids 1 - Labs CBC & Chem 7: 03/21/16 08:06 03/22/16 06:15 Labs: Abnormal Lab Results - Last 24 Hours (Table) 03/21/16 03/21/16 03/21/16 Range/Units 12:04 16:48 20:02 Sodium (137-145) mmol/L Chloride (98-107) mmol/L Carbon Dioxide (22-30) mmol/L BUN (9-20) mg/dL Creatinine (0.66-1.25) mg/dL Glucose (74-99) mg/dL POC Glucose (mg/dL) 110 H 139 H 135 H (75-99) mg/dL Magnesium (1.6-2.3) mg/dL 03/22/16 03/22/16 Range/Units 05:23 06:15 Sodium 153 H (137-145) mmol/L Chloride 108 H (98-107) mmol/L Carbon Dioxide 33 H (22-30) mmol/L BUN 28 H (9-20) mg/dL Creatinine 1.40 H (0.66-1.25) mg/dL Glucose 120 H (74-99) mg/dL POC Glucose (mg/dL) 250 H (75-99) mg/dL Magnesium 2.8 H (1.6-2.3) mg/dL Assessment and Plan Plan: Assessment: #1. Nonoliguric acute kidney injury mostly cardiorenal in nature with a component of obstructive uropathy. Renal function stable to last few days with creatinine near 1.6. Creatinine today is 1.4. Unclear as to what his baseline renal function is. #2. Urinary retention status post Esals catheter placement. He is nonoliguric. #3. Hypernatremia secondary to lack off oral water intake. Sodium level down to 153 today. #4. Diastolic CHF. #5. Hypokalemia secondary to lack of oral intake and renal losses. Magnesium and replete. Plan: Increase rate of D5W to be run at 75 mL an hour. Encourage oral intake as tolerated. Avoid nephrotoxic agents and hypotensive episodes. Maintain Seals catheter. Replace potassium.
[2016-03-22] MEDS: DULoxetine HCL 30 MG CAPSULE.DR PO SCH (09:36)
[2016-03-22] MEDS: TAMSULOSIN 0.4 MG CAP.ER.24H PO SCH (09:36)
[2016-03-22] MEDS: PANTOPRAZOLE 40 MG TABLET PO SCH ×2 (09:36→22:36)
[2016-03-22] MEDS: METOPROLOL SUCCINATE (ER) 50 MG TAB.ER.24H PO SCH (09:36)
[2016-03-22] MEDS: LACTULOSE 20 GM/30 ML CUP PO SCH (09:36)
[2016-03-22] MEDS: PARoxetine 10 MG TAB PO SCH (09:37)
[2016-03-22] MEDS: ISOSORBIDE MONONITRATE ER 30 MG TAB.ER.24H PO SCH (09:37)
[2016-03-22] MEDS: DICLOFENAC SODIUM GEL 100 GM TUBE TOPICAL SCH ×2 (09:37→22:36)
[2016-03-22] MEDS: amLODIPine 10 MG TAB PO SCH (09:37)
[2016-03-22] MEDS: POTASSIUM CHLORIDE ER 20 MEQ TAB.ER PO SCH (09:37)
[2016-03-22] MEDS: BACITRACIN/POLYMYX 500-10,000 UNIT/GM OPHTH OINT 3.5 GM TUBE BOTH EYES SCH ×4 (09:37→22:37)
[2016-03-22] MEDS: FLUTICASONE 50MCG/SPRAY NASAL 16GM EA NOSTRIL SCH ×2 (09:38→22:36)
--- NOTE | 2016-03-22 10:53 | P.PN ---
Subjective Progress note dated 03/19/2016 The patient had an 18 call when he developed respiratory distress. He was placed on BiPAP at 10 and 5 and 50%. The patient continues to improve. Less short of breath. He's Primus been maintained on BiPAP and, come off the BiPAP and go back to nasal prongs. The patient did have a chest x-ray which suggested some pneumonitis versus a mild pulmonary venous hypertension and mild heart failure. His sputum showed staph aureus. He was given vancomycin yesterday pending the sensitivities. Progress note dated 03/20/2016 This is a 66-year-old man who initially presented with respiratory distress. The respiratory difficulty was probably multifactorial in part related to underlying fluid overload but also related to underlying infection of the lung he's very purulent tracheobronchitis or pneumonitis. The sputum apparently grew a number different things including Pseudomonas Klebsiella Enterobacter and methicillin-resistant staph aureus. He is currently only on vancomycin as an antibiotic. It would probably be beneficial to have ID see the patient and make some recommendations in regards to which antibiotics the patient would be best served on. The patient seemed relatively stable today. Difficult for him to verbalize his complaints. Does not appear to be in any significant distress. Progress note dated 03/21/2016 This 66-year-old gentleman continues to show show slow improvement. His respiratory status has improved. Has a history of underlying fluid overload as well as pulmonary infection. The infection is probably more of a purulent tracheobronchitis versus a pneumonia. His sputum. Number different pathogens including Pseudomonas Klebsiella Enterobacter and methicillin-resistant staph aureus. I asked Dr. Ashton the infectious disease specialist to see him again come up with the recommendation regards to antibiotics. From the pulmonary standpoint no, the patient doing much better. Progress note dated 03/22/2016 This is a 66-year-old gentleman who continues to show improvement. His respiratory status respiratory status has improved and is not requiring the BiPAP near as much or at all. He is currently on nasal O2. He was admitted with a diagnosis of respiratory difficulty secondary to fluid overload as well as pulmonary infection possibly related to underlying MRSA Pseudomonas Klebsiella or Enterobacter infections. I did ask Dr. Ashton from infectious disease to see the patient and recommend some antibiotics. Other than that the patient seemed be doing relatively well. Probably more of a purulent tracheobronchitis as opposed to pneumonia. Objective - Vital Signs Vital signs: Vital Signs Temp 97.4 F L 03/22/16 08:00 Pulse 92 03/22/16 08:35 Resp 16 03/22/16 08:00 BP 122/69 03/22/16 08:00 Pulse Ox 91 L 03/22/16 08:00 Intake & Output 03/21/16 03/22/16 03/22/16 18:59 06:59 18:59 Intake Total 238 Output Total 800 2000 Balance -562 -1999 Weight 121 kg Intake: Oral 238 Output: Urine 800 2000 Other: Voiding Method Indwelling Catheter Indwelling Catheter # Voids 1 - Exam No acute distress, oriented 3. He is alert. HEENT examination is grossly unremarkable. Mucous membranes are moist. Neck supple. Full range of motion. No adenopathy. Cardiovascular examination reveals regular rhythm rate. S1-S2 normal. No heart murmur. No S3-S4. Lungs reveal few scattered crackles and a few scattered rhonchi. Breath sounds are generally improved. Breath sounds are slightly diminished. The patient does not take a deep breath. Abdomen soft. Extremities Reveal very mild edema. - Labs CBC & Chem 7: 03/21/16 08:06 03/22/16 06:15 Labs: Abnormal Lab Results - Last 24 Hours (Table) 03/21/16 03/21/16 03/21/16 Range/Units 12:04 16:48 20:02 Sodium (137-145) mmol/L Chloride (98-107) mmol/L Carbon Dioxide (22-30) mmol/L BUN (9-20) mg/dL Creatinine (0.66-1.25) mg/dL Glucose (74-99) mg/dL POC Glucose (mg/dL) 110 H 139 H 135 H (75-99) mg/dL Magnesium (1.6-2.3) mg/dL 03/22/16 03/22/16 Range/Units 05:23 06:15 Sodium 153 H (137-145) mmol/L Chloride 108 H (98-107) mmol/L Carbon Dioxide 33 H (22-30) mmol/L BUN 28 H (9-20) mg/dL Creatinine 1.40 H (0.66-1.25) mg/dL Glucose 120 H (74-99) mg/dL POC Glucose (mg/dL) 250 H (75-99) mg/dL Magnesium 2.8 H (1.6-2.3) mg/dL Assessment and Plan (1) CHF (congestive heart failure) Status: Acute (2) COPD (chronic obstructive pulmonary disease) Status: Acute (3) CVA (cerebral vascular accident) Status: Acute (4) Hyperlipidemia Status: Acute (5) Hypertension Status: Acute (6) Dyspnea Status: Acute Plan: Plan dated 03/17/2016 The patient 58 the patient did receive some Lasix is morning IV push. In addition we place him on oxygen and actually replace the oxygen with BiPAP. He is BiPAP settings included an IPAP of 10 and EPAP of 5 with enough oxygen bled in to maintain sats in the mid to high 80s. Is a CO2 retainer. His medications and other labs and so forth will be reviewed. His x-rays have been reviewed. Additional recommendations suggestions are forthcoming. He appears much more stable Progress note dated 03/19/2016 Will check to sensitivities of the staph. The patient will continue to receive current medications: Bronchodilators and diuretics. We'll adjust antibiotics accordingly. No additional recommendations are made. Overall prognosis is guarded but the patient does seem to be showing improvement. Based on yesterday 's laboratory data, the Lasix will have to be reduced or discontinued altogether gather as a patient was Becoming quite prerenal alkalotic and hyponatremic. Progress note dated 03/20/2016 The patient's currently on vancomycin for his methicillin-resistant staph aureus infection. His chest x-ray does show improvement. In addition the sputum revealed evidence of Klebsiella pseudomonas and Enterobacter cloaca a. ID consultation recommended. We will continue to follow. The patient's respiratory status has improved. The patient can use of BiPAP only as needed. Progress note dated 03/21/2016 The patient is doing much better. Medications are reviewed. Dr. Ashton is input is appreciated. No additional recommendations are made. Pulmozyme status is slowly improving. Progress note dated 03/22/2016 The patient will continue on the current regimen. Appreciate input by Dr. Ashton. The patient remains on vancomycin. The patient is doing better. Less respiratory issues. Not requiring BiPAP. We'll continue to follow closely. Continue with bronchodilators and the like. Time with Patient: Less than 30
--- NOTE | 2016-03-22 11:43 | PN ---
DATE OF SERVICE: 03/21/2016 This is 66-year-old gentleman admitted with COPD and as well as congestive heart failure acute exacerbation being closely monitored. The patient also has acute respiratory is on BiPAP. The patient is on BiPAP. Patient also had Vancomycin for MRSA. Dr. Ashton has seen the patient. There is a concern for aspiration pneumonia also. The sputum polymicrobial are showing methicillin-resistant Staphylococcus aureus Pseudomonas Klebsiella and Enterobacter. Vancomycin and Ceftazidime has been utilized currently. Dr. Ferro from nephrology is following patient closely for nonoliguric acute renal failure. Creatinine stabilized at this time. PAST MEDICAL HISTORY: Reviewed. Review of systems could not be taken the patient is still confused. Current medications are reviewed and include: 1. Tylenol 650 q.6 p.r.n. 2. DuoNeb q.i.d. and p.r.n. 3. Norvasc 10 mg p.o. daily. 4. Bacitracin. 6. Ceftazidime 2 grams. 7. Klonopin 0.5 mg q.h.s. 8. Voltaren gel 2 grams b.i.d. 9. Colace 100 milligrams b.i.d. 10. Cymbalta 30 mg daily. 11. Flonase b.i.d. 12. Humalog scale. 13. Imdur 30 mg p.o. daily. 16. Keppra 250 mg q.h.s. 17. Melatonin 6 mg q.h.s. 18. Toprol XL 50 mg p.o. daily. 19. Zofran 4 mg q6h p.r.n. 20. Protonix 40 mg b.i.d. 21. Paxil 10 mg p.o. daily. 22. Pravachol 40 mg q.h.s. 23. Senokot-S 2 tablets q.h.s. 24. Mylicon 14. 25. Flomax 0.4 daily. 26. Vancomycin 1.75 daily. PHYSICAL EXAMINATION: The patient is alert and oriented x1. Pulse is 110, blood pressure 130/84, respiratory rate, temperature 98.4, pulse ox 92% on 5 liters. HEENT: Conjunctivae normal. Oral mucosa moist. NECK: Obese. CARDIOVASCULAR: S1, S2 muffled. No S3, no S4. RESPIRATORY: Breath sounds diminished at the bases. Bilateral scattered rhonchi and crackles. ABDOMEN: Soft, obese, nontender. Legs: Bilateral leg edema. CENTRAL NERVOUS SYSTEM: Diffusely weak. LABS: Sodium 157 and potassium 3.4, creatinine is 1.57. ASSESSMENT: 1. Shortness of breath and acute respiratory failure, multifactorial, congestive heart failure acute exacerbation as well as chronic obstructive pulmonary disease, acute exacerbation with bilateral aspiration pneumonia with fever with multipolymicrobial sputum. 2. Hyperkalemia severe on admission improved. 3. Change in his mental status, metabolic encephalopathy. 4. Vomiting, possible acute gastritis. 5. Acute renal failure, possible prerenal, with acute tubular necrosis. 6. Body mass index of 41.8. Severe obesity. 7. 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 8. Methicillin-resistant Staphylococcus aureus Klebsiella pseudomonas Enterobacter cloacae from the sputum. 9. Hypernatremia. 10. Hypertension. 11. Hyperlipidemia. 12. History of degenerative joint disease. 13. History of depression. 14. History of nicotine dependence. 15. Indeterminate troponin 0.05. 16. History of chronic obstructive pulmonary disease. 17. History of cerebrovascular accident, transient ischemic attack. 18. Obesity with body mass index 39.1. 19. Increased WBC. 20. FULL CODE. RECOMMENDATIONS AND DISCUSSION: In this 66-year-old gentleman who presented with multiple complex medical issues we will monitor this closely. Continue the current medications, continue symptomatic treatment. Continue with bronchodilators. Continue with empiric antibiotics as described above. Otherwise, PT, OT evaluation and possible ECF rehab. Guarded prognosis because of multiple complex medical issues. Further recommendations to follow. Closely monitor with multiple consultants. See orders for further details. Prognosis guarded. MTDD
[2016-03-22 11:59] LABS: Glucose,Whole Blood 110 mg/dL (75-99)
[2016-03-22 17:05] VITALS: RESP 18
[2016-03-22 17:09] LABS: Glucose,Whole Blood 89 mg/dL (75-99)
[2016-03-22] MEDS: VANCOMYCIN 1,750 MG in SODIUM CHLORIDE 0.9% 250 ML IVPB SCH (17:27)
[2016-03-22 20:06] LABS: Glucose,Whole Blood 126 mg/dL (75-99)
[2016-03-22] MEDS: PRAVASTATIN SODIUM 40 MG TAB PO SCH (22:36)
[2016-03-22] MEDS: SIMETHICONE 80 MG CHEWABLE PO SCH (22:36)
[2016-03-22] MEDS: MELATONIN 3 MG TABLET PO SCH (22:36)
[2016-03-22] MEDS: DOCUSATE 100 MG CAP PO SCH (22:37)
[2016-03-22] MEDS: SENNOSIDES-DOCUSATE SODIUM 1 EACH TAB PO SCH (22:44)
[2016-03-22] MEDS: clonazePAM 0.5 MG TAB PO SCH (22:44)
[2016-03-23] MEDS: ACETAMINOPHEN TAB 325 MG TAB PO PRN ×2 (01:39→09:56)
[2016-03-23 03:53] LABS: Anion Gap 13 mmol/L; Blood Urea Nitrogen 24 mg/dL (9-20); Calcium 9.2 mg/dL (8.4-10.2); Carbon Dioxide 28 mmol/L (22-30); Chloride 111 mmol/L (98-107); Glucose 118 mg/dL (74-99); Magnesium 2.8 mg/dL (1.6-2.3); Non-African American GFR(MDRD) 50 (>60 ml/min/1.73 sqM); Potassium 3.5 mmol/L (3.5-5.1); Sodium 152 mmol/L (137-145)
[2016-03-23] MEDS: INSULIN LISPRO (humaLOG) 300 UNIT/3 ML VIAL SQ SCH ×4 (06:53→22:11)
[2016-03-23 06:55] LABS: Glucose,Whole Blood 91 mg/dL (75-99)
[2016-03-23] MEDS: levETIRAcetam 250 MG TAB PO SCH ×3 (06:57→22:11)
[2016-03-23] MEDS: SYMBICORT 160-4.5 MCG INHALER INHALATION SCH ×2 (08:42→19:34)
[2016-03-23] MEDS: IPRATROPIUM-ALBUTEROL 3 ML NEB INHALATION SCH ×4 (08:42→19:35)
--- NOTE | 2016-03-23 09:12 | XR ---
EXAMINATION TYPE: XR chest 1V portable DATE OF EXAM: 03/23/2016 8:43 AM COMPARISON: Prior chest x-ray dated 2016 HISTORY: Pneumonia, congestive heart failure TECHNIQUE: Single frontal view of the chest is obtained. FINDINGS: Patient is rotated. No significant interval change is evident. IMPRESSION: Stable exam, old granulomatous disease. Heart size may be accentuated by rotation. Consi martha follow-up PA and lateral chest x-ray for better evaluation.
[2016-03-23] MEDS: DICLOFENAC SODIUM GEL 100 GM TUBE TOPICAL SCH (09:57)
[2016-03-23] MEDS: LACTULOSE 20 GM/30 ML CUP PO SCH (09:58)
[2016-03-23] MEDS: amLODIPine 10 MG TAB PO SCH (09:58)
[2016-03-23] MEDS: FLUTICASONE 50MCG/SPRAY NASAL 16GM EA NOSTRIL SCH ×2 (09:58→22:11)
[2016-03-23] MEDS: BACITRACIN/POLYMYX 500-10,000 UNIT/GM OPHTH OINT 3.5 GM TUBE BOTH EYES SCH ×4 (09:58→22:12)
[2016-03-23] MEDS: TAMSULOSIN 0.4 MG CAP.ER.24H PO SCH (09:58)
[2016-03-23] MEDS: DULoxetine HCL 30 MG CAPSULE.DR PO SCH (09:59)
[2016-03-23] MEDS: METOPROLOL SUCCINATE (ER) 50 MG TAB.ER.24H PO SCH (09:59)
[2016-03-23] MEDS: PARoxetine 10 MG TAB PO SCH (09:59)
[2016-03-23] MEDS: PANTOPRAZOLE 40 MG TABLET PO SCH ×2 (09:59→22:09)
[2016-03-23] MEDS: ISOSORBIDE MONONITRATE ER 30 MG TAB.ER.24H PO SCH (09:59)
[2016-03-23] MEDS: VANCOMYCIN 1,750 MG in SODIUM CHLORIDE 0.9% 250 ML IVPB SCH ×2 (10:56→15:36)
[2016-03-23 12:02] LABS: Glucose,Whole Blood 84 mg/dL (75-99)
--- NOTE | 2016-03-23 12:50 | P.PN ---
Subjective 58-year-old male status post stroke presents to the emergency center with evidence of significant shortness of breath requiring BiPAP. With BiPAP therapy, antibiotic therapy and respiratory treatments he has now improved. There is evidence of abnormal troponins in the since seen by cardiology without thought to have evidence of any acute event. There was also possible concern of the aspiration pneumonia. It is noted there is a polymicrobial sputum showing evidence of MRSA, Klebsiella, Enterobacter and Pseudomonas. Based on this, an infectious disease consultation was obtained and the patient was started on a combination of vancomycin and Fortaz. Clinically the patient is doing better. Today's chest x-ray shows further improvement in the left lower base aeration. The patient is currently on Cefizox 2 by nasal cannula and his pulse oximetry 94 %. No fever. No chills. He is hemodynamically stable. He has no significant leukocytosis. The sodium level is improving. The patient is also recovering from his acute kidney injury and creatinine is progressively on the decline. Objective - Vital Signs Vital signs: Vital Signs Temp 97.1 F L 03/23/16 11:43 Pulse 84 03/23/16 11:44 Resp 18 03/23/16 11:44 BP 147/96 03/23/16 11:43 Pulse Ox 94 L 03/23/16 11:43 Intake & Output 03/22/16 03/23/16 03/23/16 18:59 06:59 18:59 Intake Total 120 740 536 Output Total 450 800 375 Balance -330 -60 161 Weight 120 kg Intake: Oral 120 740 536 Output: Urine 450 800 375 Uretheral (Seals) 375 Other: Voiding Method Indwelling Catheter Indwelling Catheter Indwelling Catheter # Bowel Movements 1 1 - Exam Obese, comfortable, not in acute distress, communicating and verbal.Neck was supple and without jugular venous distension, thyromegaly, or carotid bruits. Carotids were easily palpable bilaterally. There was no adenopathy.Head exam was generally normal. There was no scleral icterus or corneal arcus. Mucous membranes were moist. Lung sounds are diminished bilaterally otherwise clear.Cardiac exam revealed the PMI to be normally situated and sized. The rhythm was regular and no extrasystoles were noted during several minutes of auscultation. The first and second heart sounds were normal and physiologic splitting of the second heart sound was noted. There were no murmurs, rubs, clicks, or gallops.Abdominal exam revealed normal bowel sounds. The abdomen was soft, non-tender, and without masses, organomegaly, or appreciable enlargement of the abdominal aorta.Examination of the extremities revealed easily palpable radial, femoral and pedal pulses. There was no cyanosis, clubbing or edema. - Labs CBC & Chem 7: 03/21/16 08:06 03/23/16 03:25 Labs: Abnormal Lab Results - Last 24 Hours (Table) 03/22/16 03/23/16 Range/Units 20:05 03:25 Sodium 152 H (137-145) mmol/L Chloride 111 H (98-107) mmol/L BUN 24 H (9-20) mg/dL Creatinine 1.40 H (0.66-1.25) mg/dL Glucose 118 H (74-99) mg/dL POC Glucose (mg/dL) 126 H (75-99) mg/dL Magnesium 2.8 H (1.6-2.3) mg/dL Assessment and Plan Plan: Asseessment #1 Acute hypoxic respiratory failure secondary to fluid volume overload/ diastolic congestive heart failure and suspected polymicrobial aspiration pneumonia. The patient is currently on a combination of Fortaz and vancomycin. His subsequent chest x-rays showed improvement in the bilateral pulmonary infiltrates. He is currently on 3 L of oxygen by nasal cannula. #2 Acute exacerbation of chronic obstructive pulmonary disease. #3 cerebrovascular accident. #4 Hyperlipidemia. #5 Hypertension. #6 Nonoliguric acute kidney injury mostly cardiorenal in nature with a component of obstructive uropathy. Renal function stable to last few days with creatinine near 1.6. Creatinine today is 1.4. Unclear as to what his baseline renal function is. #7 Urinary retention status post Seals catheter placement. He is nonoliguric. #8. Hypernatremia secondary to lack off oral water intake. Sodium level down to 152 today. Patient will have a PICC line inserted at a later stage today. PLAN The patient is gradually improving. We'll continue same treatment. Continue fluid resuscitation and the patient will placed on D5 water at the rate of 75 mL an hour. The fluid will be resumed once the patient obtains his PICC line. Continue same antibiotic coverage. Aspiration precautions. Monitor renal function. We'll continue to follow
[2016-03-23] MEDS ORDERED: LIDOCAINE 2% INJ 20 MG/ML (20 ML MDV) ONE (14:43)
[2016-03-23] MEDS ORDERED: LIDOCAINE 2% INJ 20 MG/ML SQ ONE (15:03)
[2016-03-23 15:06] VITALS: BMI 39.0
[2016-03-23] MEDS: DEXTROSE 5%-0.45% NACL 1,000 ML IV SCH (15:36)
[2016-03-23 16:35] LABS: Glucose,Whole Blood 108 mg/dL (75-99)
--- NOTE | 2016-03-23 16:42 | IR ---
EXAMINATION TYPE: IR cvc insert >=5 years DATE OF EXAM: 03/23/2016 3:44 PM COMPARISON: NONE CLINICAL HISTORY: Infection Needs long-term intravenous access for antibiotics. PROCEDURE: After informed consent, the skin overlying the left upper extremity vein was localized with ultrasoun d and noted to be compressible and patent. An ultrasound image was obtained and submitted on the pat ient's chart. The overlying skin was prepped and draped and Lidocaine was used for local anesthesia. A skin dudley was made with a scalpel. Access was gained to the vein under ultrasound guidance with a 21 gauge needle and a 0.018 inch wire was advanced. Access site was dilated with Peel-Away sheath and catheter tailored to the appropriate length and advanced such that the distal tip is at the cavoa trial junction. Spot image was obtained verifying placement. Catheter was fixed to the skin with manuel ture and a sterile dressing was placed following hemostasis. Catheter was aspirated and flushed with saline. Patient was discharged in stable condition without complication. Maximal barrier technique is utilized. Ultrasound image is documented on the chart. Ultrasound used with sterile technique. Fluoro time and fluoroscopic images submitted to document procedure: 30 intraoperative C-arm images, 0.2 minutes fluoroscopy time IMPRESSION: STATUS POST ULTRASOUND AND FLUOROSCOPIC GUIDED PICC LINE PLACEMENT, READY FOR USE. THIS PROCEDURE WAS PERFORMED BY THE UNDERSIGNED.
--- NOTE | 2016-03-23 17:08 | P.PN ---
Subjective This is a 66-year-old male seen in consultation because of hyponatremia and acute kidney injury secondary to decreased free water intake and prerenal. Was initially admitted and treated for CHF he was on BiPAP. Subsequently Lasix has been on hold he is being given D5W because of the hypernatremia is known with COPD and there was a possibility of aspiration pneumonia as well. He is known with right-sided CVA and hypertension Objective - Vital Signs Vital signs: Vital Signs Temp 97.0 F L 03/23/16 15:50 Pulse 91 03/23/16 15:51 Resp 18 03/23/16 15:51 BP 148/86 03/23/16 15:50 Pulse Ox 95 03/23/16 15:50 Intake & Output 03/22/16 03/23/16 03/23/16 18:59 06:59 18:59 Intake Total 120 740 536 Output Total 450 800 600 Balance -330 -60 -64 Weight 120 kg 120 kg Intake: Oral 120 740 536 Output: Urine 450 800 600 Uretheral (Seals) 600 Other: Voiding Method Indwelling Catheter Indwelling Catheter Indwelling Catheter # Bowel Movements 1 1 On examination he is awake alert and oriented. HEENT exam JVP is not seen next supple no facial asymmetry Lungs are clear to auscultation and good air entry bilaterally normal to percussion Heart sounds are normal. No murmur rub gallop Abdomen soft nontender slightly obese Extremity exam was trace edema Neurologically awake alert oriented right-sided weakness. - Labs CBC & Chem 7: 03/21/16 08:06 03/23/16 03:25 Labs: Abnormal Lab Results - Last 24 Hours (Table) 03/22/16 03/23/16 03/23/16 Range/Units 20:05 03:25 16:33 Sodium 152 H (137-145) mmol/L Chloride 111 H (98-107) mmol/L BUN 24 H (9-20) mg/dL Creatinine 1.40 H (0.66-1.25) mg/dL Glucose 118 H (74-99) mg/dL POC Glucose (mg/dL) 126 H 108 H (75-99) mg/dL Magnesium 2.8 H (1.6-2.3) mg/dL Assessment and Plan Plan: Impression. 1. Acute kidney injury second obstructive nephropathy additionally congestive heart failure and cardiorenal syndrome. Creatinine improved to 1.4 yesterday and today and stable. Baseline creatinine unavailable prior to this admission. 2. Etiology of acute kidney injury is multifactorial. 3. Hyponatremia secondary to decreased water intake improving on D5W with sodium going around 152. Recommendation. No changes in medications. Maintain D5W for right now until sodium is improved. He need to improve his oral intake.
--- NOTE | 2016-03-23 17:52 | PN ---
DATE OF SERVICE: 03/22/2016 This 66-year-old gentleman who was admitted with shortness of breath and acute respiratory failure which was thought to be multifactorial in etiology with CHF, acute exacerbation, also had COPD, acute exacerbation. The patient had polymicrobial sputum with fever. Sensorium has slightly improved. The patient is using on and off BiPAP. Multiple consultants, including Dr. Ashton and Dr. Mercado, are following the patient closely. No chest pain. No palpitation. No fever. On exam, alert and oriented x3. Pulse 75, blood pressure 131/70, respiratory rate 16, temperature normal, pulse ox 94% on 5 L. HEENT: Conjunctivae normal. Oral mucosa moist. NECK: No jugular venous distention. No carotid bruit. No lymph node enlargement. CARDIOVASCULAR SYSTEM: S1, S2 muffled. RESPIRATORY SYSTEM: Breath sounds diminished at the bases. A few scattered rhonchi and crackles. RESPIRATORY: As mentioned earlier the bases. ABDOMEN: Soft, obese, non-tender. LEGS: No edema. No swelling. NERVOUS SYSTEM: No focal deficit. Labs at this time show sodium is 153, creatinine 1.40. WBC 13.8. ASSESSMENT: 1. Shortness of breath with acute respiratory failure, multifactorial, congestive heart failure, acute exacerbation, as well as chronic obstructive pulmonary disease, acute exacerbation, with bilateral aspiration pneumonia with fever with polymicrobial sputum. 2. Hyperkalemia, severe, on admission, improved. 3. Change in mental status, metabolic encephalopathy. 4. Vomiting, possibly acute gastritis. 5. Acute renal failure, possible prerenal, with acute tubular necrosis. 6. Body mass index 41.8; severe obesity. 7. Old right hemiplegia with cerebrovascular accident. 8. Methicillin-resistant Staphylococcus aureus with klebsiella, pseudomonas and Enterobacter cloacae from the sputum. 9. Hypernatremia. 10. Hypertension. 11. Hyperlipidemia. 12. History of degenerative joint disease. 13. History of depression. 14. History of nicotine dependence. 15. Intermediate troponin 0.05. 16. History of chronic obstructive pulmonary 17. History of cerebrovascular accident, transient ischemic attack. 18. Obesity with body mass index 19. Increased white count. 20. FULL CODE. RECOMMENDATIONS AND DISCUSSION: In this 66-year-old gentleman who presented with multiple medical problems, we will monitor the patient closely, continue the current medications, continue with symptomatic treatment. I recommend to continue the bronchodilators, antibiotics. Monitor sodium closely. Prognosis guarded because of multiple complex medical issues. Further recommendations to follow. MTDD
--- NOTE | 2016-03-23 18:58 | P.PN ---
Subjective Principal diagnosis: Shortness of breath 66-year-old male status post stroke with persistent right-sided weakness presents from the [facility] for evaluation of having shortness of breath, fever. Was also having difficulties with nausea and about of emesis. At admission the patient was short of breath and was treated with BiPAP. He is now being treated with oxygen therapy by nasal cannula. He is a poor historian because of his stroke. Asked several times if he is going back to [facility]. That able to provide much more history. He is calm at this point in time. Is anxious to get back to his home and [facility]. Believes it is less short of breath. Denies cough or hemoptysis. Energy level is somewhat poor. PICC line is in place without significant discomfort. Objective - Vital Signs Vital signs: Vital Signs Temp 97.0 F L 03/23/16 15:50 Pulse 91 03/23/16 15:51 Resp 18 03/23/16 15:51 BP 148/86 03/23/16 15:50 Pulse Ox 95 03/23/16 15:50 Intake & Output 03/22/16 03/23/16 03/23/16 18:59 06:59 18:59 Intake Total 149 072 7558 Output Total 450 800 600 Balance -330 -60 1144 Weight 120 kg 120 kg Intake: Intake, IV Titration 575 Amount Dextrose 5% in Water 1, 325 000 ml @ 75 mls/hr IV . [id number] ONE Rx#:[id number] Vancomycin 1,750 mg In 250 Sodium Chloride 0.9% 250 ml @ 125 mls/hr IVPB DAILY [facility] Rx#:[id number] Oral [phone] Output: Urine 450 800 600 Uretheral (Seals) 600 Other: Voiding Method Indwelling Catheter Indwelling Catheter Indwelling Catheter # Bowel Movements 1 1 - Exam 66-year-old male who suffers from obesity seems comfortable becomes tearful HEENT: Anicteric conjunctiva are injected with crusting. Sclerae are also a bit red and injected nasal mucosa without bleeding. Oral cavity with poor dentition but no thrush is noted Neck: The neck is supple without significant lymphadenopathy or thyromegaly. Lungs: Symmetrical air entry with basilar crackles and expiratory wheezes are heard no keisha bronchial sounds Heart: Irregular with an audible S1 and S2 soft S4 no distinct murmur click or rub PMI was nondisplaced with no heave or thrill Abdomen: Obese Positive bowel sounds soft and nontender without palpable masses or organomegaly. There was no guarding or rebound. Extremities: The upper extremities show evidence of the multiple IV attempts and some ecchymosis. But no significant lesions are seen. The bilateral lower extremities have evidence of edema. No cervical in lesions are seen on the heels legs or buttocks Neuro: Awake oriented to person and place he knows that he has not yet [place]. He asked several times to go back. But does not have any other meaningful conversation except that he was cold and wanted to be covered - Labs CBC & Chem 7: 03/21/16 08:06 03/23/16 03:25 Labs: Abnormal Lab Results - Last 24 Hours (Table) 03/22/16 03/23/16 03/23/16 Range/Units 20:05 03:25 16:33 Sodium 152 H (137-145) mmol/L Chloride 111 H (98-107) mmol/L BUN 24 H (9-20) mg/dL Creatinine 1.40 H (0.66-1.25) mg/dL Glucose 118 H (74-99) mg/dL POC Glucose (mg/dL) 126 H 108 H (75-99) mg/dL Magnesium 2.8 H (1.6-2.3) mg/dL Laboratory Results WBC 13.8 k/uL (3.8-10.6) H 03/21/16 08:06 RBC 5.63 m/uL (4.30-5.90) 03/21/16 08:06 Hgb 14.6 gm/dL (13.0-17.5) 03/21/16 08:06 Hct 50.2 % (39.0-53.0) 03/21/16 08:06 MCV 89.2 fL (80.0-100.0) 03/21/16 08:06 MCH 25.9 pg (25.0-35.0) 03/21/16 08:06 MCHC 29.1 g/dL (31.0-37.0) L 03/21/16 08:06 RDW 14.1 % (11.5-15.5) 03/21/16 08:06 Plt Count 269 k/uL (150-450) 03/21/16 08:06 Neutrophils % 81 % 03/21/16 08:06 Lymphocytes % 9 % 03/21/16 08:06 Monocytes % 6 % 03/21/16 08:06 Eosinophils % 2 % 03/21/16 08:06 Basophils % 1 % 03/21/16 08:06 Neutrophils # 11.2 k/uL (1.3-7.7) H 03/21/16 08:06 Lymphocytes # 1.2 k/uL (1.0-4.8) 03/21/16 08:06 Monocytes # 0.9 k/uL (0-1.0) 03/21/16 08:06 Eosinophils # 0.3 k/uL (0-0.7) 03/21/16 08:06 Basophils # 0.1 k/uL (0-0.2) 03/21/16 08:06 Hypochromasia Marked 03/21/16 08:06 PT 10.2 sec (9.0-12.0) 03/16/16 19:01 INR 1.0 (<1.1) 03/16/16 19:01 APTT 23.9 sec (22.0-30.0) 03/16/16 19:01 Sample Site rrad 03/17/16 08:49 ABG pH 7.53 (7.35-7.45) H 03/17/16 08:49 ABG pCO2 40 mmHg (35-45) 03/17/16 08:49 ABG pO2 64 mmHg (83-108) L 03/17/16 08:49 ABG HCO3 34 mmol/L (21-25) H 03/17/16 08:49 ABG Total CO2 35 mmol/L (19-24) H 03/17/16 08:49 ABG O2 Saturation 94.0 % (94-97) 03/17/16 08:49 ABG Base Excess 10.2 mmol/L 03/17/16 08:49 FiO2 44 % 03/17/16 08:49 Sodium 152 mmol/L (137-145) H 03/23/16 03:25 Potassium 3.5 mmol/L (3.5-5.1) 03/23/16 03:25 Chloride 111 mmol/L (98-107) H 03/23/16 03:25 Carbon Dioxide 28 mmol/L (22-30) 03/23/16 03:25 Anion Gap 13 mmol/L 03/23/16 03:25 BUN 24 mg/dL (9-20) H 03/23/16 03:25 Creatinine 1.40 mg/dL (0.66-1.25) H 03/23/16 03:25 Est GFR (MDRD) Af Amer >60 (>60 ml/min/1.73 sqM) 03/23/16 03:25 Est GFR (MDRD) Non-Af 50 (>60 ml/min/1.73 sqM) 03/23/16 03:25 Glucose 118 mg/dL (74-99) H 03/23/16 03:25 POC Glucose (mg/dL) 108 mg/dL (75-99) H 03/23/16 16:33 POC Glu Shift Boss ID Toshia Ratliff 03/23/16 16:[address] Glu mg/dL 126 mg/dL 03/16/16 23:56 Hemoglobin A1c 6.0 % (4.2-6.1) 03/16/16 23:56 Plasma Lactic Acid Ben 1.7 mmol/L (0.7-2.0) 03/16/16 23:56 Calcium 9.2 mg/dL (8.4-10.2) 03/23/16 03:25 Magnesium 2.8 mg/dL (1.6-2.3) H 03/23/16 03:25 Total Bilirubin 0.9 mg/dL (0.2-1.3) 03/16/16 19:01 AST 19 U/L (17-59) 03/16/16 19:01 ALT 20 U/L (21-72) L 03/16/16 19:01 Alkaline Phosphatase 87 U/L (38-126) 03/16/16 19:01 Total Creatine Kinase 48 U/L (55-170) L 03/17/16 06:59 CK-MB (CK-2) 0.2 ng/mL (0.0-2.4) 03/17/16 06:59 CK-MB (CK-2) Rel Index 0.4 03/17/16 06:59 Troponin I 0.025 ng/mL (0.000-0.034) 03/17/16 06:59 NT-Pro-B Natriuret Pep 1120 pg/mL 03/16/16 19:01 Total Protein 7.3 g/dL (6.3-8.2) 03/16/16 19:01 Albumin 4.0 g/dL (3.5-5.0) 03/16/16 19:01 Urine Color Yellow 03/16/16 19:01 Urine Appearance Clear (Clear) 03/16/16 19:01 Urine pH 6.0 (5.0-8.0) 03/16/16 19:01 Ur Specific [place] 1.013 (1.001-1.035) 03/16/16 19:01 Urine Protein Trace (Negative) H 03/16/16 19:01 Urine Glucose (UA) Negative (Negative) 03/16/16 19:01 Urine Ketones Negative (Negative) 03/16/16 19:01 Urine Blood Negative (Negative) 03/16/16 19:01 Urine Nitrate Negative (Negative) 03/16/16 19:01 Urine Bilirubin Negative (Negative) 03/16/16 19:01 Urine Urobilinogen <2.0 mg/dL (<2.0) 03/16/16 19:01 Ur Leukocyte Esterase Negative (Negative) 03/16/16 19:01 Vancomycin Trough 22.7 ug/mL 03/21/16 08:06 Gabapentin 25.9 ug/mL (2.0-12.0) H 03/16/16 23:56 Levetiracetam 13.9 ug/mL (3.0-60.0) 03/16/16 23:56 Microbiology 03/16/16 19:01 Blood Blood Culture - Final No Growth after 144 hours 03/16/16 19:36 Sputum Gram Stain - Final 03/16/16 19:36 Sputum Sputum Culture - Final Methicillin resist S. aureus Klebsiella pneumoniae Pseudomonas aeruginosa Enterobacter cloacae 03/16/16 19:01 Urine,Voided Urine Culture - Final Assessment and Plan (1) COPD (chronic obstructive pulmonary disease) Status: Acute (2) Pneumonia due to Gram-negative bacteria Narrative/Plan: 66-year-old male status post stroke presents to the emergency center with evidence of significant shortness of breath requiring BiPAP. With BiPAP therapy, antibiotic therapy and respiratory treatments he has now improved. There is evidence of abnormal troponins in the since seen by cardiology without thought to have evidence of any acute event. Was also possible concern of the aspiration pneumonia. It is noted there is a polymicrobial sputum showing evidence of MRSA, Klebsiella, Enterobacter and Pseudomonas. For treatment at this time vancomycin was ceftazidime will be effective for all the isolated pathogens. As he improves and gets ready to head back to extended care to complete a course of 2 weeks of therapy with vancomycin and ceftazidime. The be monitored closely due to his elevated creatinine. He does not have hyperkalemia. He has had an appropriate mattress at this time. He is having a bit of irritation to his eyes and some topical antibiotic therapy is given. Which is allowing improvement. Status: Acute (3) Conjunctivitis Status: Acute
[2016-03-23 20:15] LABS: Glucose,Whole Blood 121 mg/dL (75-99)
[2016-03-23] MEDS: MELATONIN 3 MG TABLET PO SCH (22:08)
[2016-03-23] MEDS: DOCUSATE 100 MG CAP PO SCH (22:08)
[2016-03-23] MEDS: KETOCONAZOLE 2% SHAMPOO 1 APPLIC/ML TOPICAL SCH (22:09)
[2016-03-23] MEDS: SIMETHICONE 80 MG CHEWABLE PO SCH (22:09)
[2016-03-23] MEDS: PRAVASTATIN SODIUM 40 MG TAB PO SCH (22:09)
[2016-03-23] MEDS: SENNOSIDES-DOCUSATE SODIUM 1 EACH TAB PO SCH (22:22)
[2016-03-24 05:41] LABS: Glucose,Whole Blood 99 mg/dL (75-99)
[2016-03-24] MEDS: INSULIN LISPRO (humaLOG) 300 UNIT/3 ML VIAL SQ SCH ×4 (06:53→21:45)
[2016-03-24] MEDS: DEXTROSE 5%-0.45% NACL 1,000 ML IV SCH (06:56)
[2016-03-24] MEDS: IPRATROPIUM-ALBUTEROL 3 ML NEB INHALATION SCH ×4 (08:49→21:09)
[2016-03-24] MEDS: SYMBICORT 160-4.5 MCG INHALER INHALATION SCH ×3 (08:49→21:09)
[2016-03-24] MEDS: ISOSORBIDE MONONITRATE ER 30 MG TAB.ER.24H PO SCH (08:55)
[2016-03-24] MEDS: levETIRAcetam 250 MG TAB PO SCH ×3 (08:55→23:39)
[2016-03-24] MEDS: DULoxetine HCL 30 MG CAPSULE.DR PO SCH (08:55)
[2016-03-24] MEDS: TAMSULOSIN 0.4 MG CAP.ER.24H PO SCH (08:55)
[2016-03-24] MEDS: FLUTICASONE 50MCG/SPRAY NASAL 16GM EA NOSTRIL SCH ×2 (08:55→21:48)
[2016-03-24] MEDS: METOPROLOL SUCCINATE (ER) 50 MG TAB.ER.24H PO SCH (08:55)
[2016-03-24] MEDS: PARoxetine 10 MG TAB PO SCH (08:55)
[2016-03-24] MEDS: LACTULOSE 20 GM/30 ML CUP PO SCH (08:55)
[2016-03-24] MEDS: amLODIPine 10 MG TAB PO SCH (08:55)
[2016-03-24] MEDS: PANTOPRAZOLE 40 MG TABLET PO SCH ×2 (08:55→21:49)
[2016-03-24] MEDS: BACITRACIN/POLYMYX 500-10,000 UNIT/GM OPHTH OINT 3.5 GM TUBE BOTH EYES SCH ×4 (08:56→21:48)
[2016-03-24] MEDS ORDERED: DEXTROSE 5% IN WATER 1,000 ML IV ONE (11:31)
--- NOTE | 2016-03-24 11:39 | P.PN ---
Subjective This is a 66-year-old male seen in consultation because of hyponatremia and acute kidney injury secondary to decreased free water intake and prerenal. This morning is denying any complaints. Seems to be depressed. He is not eating much. 24-hour intake is 3644 output is 1410. He has low-grade temperature 99.5 this morning. While signs are otherwise unremarkable Was initially admitted and treated for CHF he was on BiPAP. Subsequently Lasix has been on hold he is being given D5W because of the hypernatremia. He is known with COPD and there was a possibility of aspiration pneumonia as well. He is known with right-sided CVA and hypertension. He is mostly bedridden Objective - Vital Signs Vital signs: Vital Signs Temp 99.5 F 03/24/16 08:00 Pulse 92 03/24/16 08:52 Resp 18 03/24/16 08:00 BP 132/82 03/24/16 08:00 Pulse Ox 94 L 03/24/16 08:00 Intake & Output 03/23/16 03/24/16 03/24/16 18:59 06:59 18:59 Intake Total 1744 1900 Output Total 600 810 Balance 1144 1090 Weight 120 kg 121 kg Intake: IV 1200 0.9% NaCl with KCl 20 MeQ 1200 @50 mls/hr Intake, IV Titration 575 100 Amount Dextrose 5% in Water 1, 325 000 ml @ 75 mls/hr IV . [id number] [facility] Rx#:[id number] Vancomycin 1,750 mg In 250 Sodium Chloride 0.9% 250 ml @ 125 mls/hr IVPB DAILY [facility] Rx#:[id number] cefTAZidime 2 gm In 100 Sodium Chloride 0.9% 100 ml @ 100 mls/hr IVPB Q12HR [facility] Rx#:[id number] Oral 1169 600 Output: Urine 600 810 Uretheral (Seals) 600 Other: Voiding Method Indwelling Catheter Indwelling Catheter Indwelling Catheter # Voids 1 # Bowel Movements 1 On examination awake alert oriented 3 but looks depressed. HEENT exam no JVP is noted but is a difficult exam. Neck is supple no facial asymmetry Lung exam is also difficult but clear as best as I could listen to him. And normal to percussion. Air entry is less than optimal. Heart sounds are unremarkable for any murmur rub gallop. Abdomen soft nontender Extremity exam was trace edema He has dense hemiplegia on the right. Awake alert oriented but looks depressed - Labs CBC & Chem 7: 03/21/16 08:06 03/23/16 03:25 Labs: Abnormal Lab Results - Last 24 Hours (Table) 03/23/16 03/23/16 Range/Units 16:33 20:09 POC Glucose (mg/dL) 108 H 121 H (75-99) mg/dL Assessment and Plan Plan: Impression. 1. Acute kidney injury second obstructive nephropathy additionally congestive heart failure and cardiorenal syndrome. Creatinine improved to 1.4 yesterday and stable. Baseline creatinine unavailable prior to this admission. Today's labs are pending 2. Dense chronic right hemiplegia 3. Hypernatremia secondary to decreased water intake improving on D5W with sodium 152 yesterday and today's labs are pending. Recommendation. No changes in medications. Will change IV fluids from half normal saline with D5W to plain D5W for right now until sodium is improved. He need to improve his oral intake.
[2016-03-24 11:42] LABS: Glucose,Whole Blood 110 mg/dL (75-99)
--- NOTE | 2016-03-24 12:06 | P.PN ---
Subjective 58-year-old male status post stroke presents to the emergency center with evidence of significant shortness of breath requiring BiPAP. With BiPAP therapy, antibiotic therapy and respiratory treatments he has now improved. There is evidence of abnormal troponins in the since seen by cardiology without thought to have evidence of any acute event. There was also possible concern of the aspiration pneumonia. It is noted there is a polymicrobial sputum showing evidence of MRSA, Klebsiella, Enterobacter and Pseudomonas. Based on this, an infectious disease consultation was obtained and the patient was started on a combination of vancomycin and Fortaz. Clinically the patient is doing better. Today's chest x-ray shows further improvement in the left lower base aeration. The patient is currently on excision 2 by nasal cannula and his pulse oximetry 94%. No fever. No chills. He is hemodynamically stable. He has no significant leukocytosis. The sodium level is improving. The patient is also recovering from his acute kidney injury and creatinine is progressively on the decline. On 03/24/2016 the patient is being seen in follow-up. History of the Suboxone by nasal cannula. His resting comfortably in bed. PICC line was inserted yesterday. He is on D5 water at the rate of 75 mL an hour. He is still the same antibiotic coverage including combination of Fortaz and vancomycin. No other significant events overnight otherwise Objective - Vital Signs Vital signs: Vital Signs Temp 99.5 F 03/24/16 08:00 Pulse 92 03/24/16 08:52 Resp 18 03/24/16 08:00 BP 132/82 03/24/16 08:00 Pulse Ox 94 L 03/24/16 08:00 Intake & Output 03/23/16 03/24/16 03/24/16 18:59 06:59 18:59 Intake Total 1744 1900 Output Total 600 810 Balance 1144 1090 Weight 120 kg 121 kg Intake: IV 1200 0.9% NaCl with KCl 20 MeQ 1200 @50 mls/hr Intake, IV Titration 575 100 Amount Dextrose 5% in Water 1, 325 000 ml @ 75 mls/hr IV . [id number] [facility] Rx#:[id number] Vancomycin 1,750 mg In 250 Sodium Chloride 0.9% 250 ml @ 125 mls/hr IVPB DAILY [facility] Rx#:[id number] cefTAZidime 2 gm In 100 Sodium Chloride 0.9% 100 ml @ 100 mls/hr IVPB Q12HR [facility] Rx#:[id number] Oral 1169 600 Output: Urine 600 810 Uretheral (Seals) 600 Other: Voiding Method Indwelling Catheter Indwelling Catheter Indwelling Catheter # Voids 1 # Bowel Movements 1 - Exam Obese, comfortable, not in acute distress, communicating and verbal.Neck was supple and without jugular venous distension, thyromegaly, or carotid bruits. Carotids were easily palpable bilaterally. There was no adenopathy.Head exam was generally normal. There was no scleral icterus or corneal arcus. Mucous membranes were moist. Lung sounds are diminished bilaterally otherwise clear.Cardiac exam revealed the PMI to be normally situated and sized. The rhythm was regular and no extrasystoles were noted during several minutes of auscultation. The first and second heart sounds were normal and physiologic splitting of the second heart sound was noted. There were no murmurs, rubs, clicks, or gallops.Abdominal exam revealed normal bowel sounds. The abdomen was soft, non-tender, and without masses, organomegaly, or appreciable enlargement of the abdominal aorta.Examination of the extremities revealed easily palpable radial, femoral and pedal pulses. There was no cyanosis, clubbing or edema. - Labs CBC & Chem 7: 03/21/16 08:06 03/23/16 03:25 Labs: Abnormal Lab Results - Last 24 Hours (Table) 03/23/16 03/23/16 03/24/16 Range/Units 16:33 20:09 11:41 POC Glucose (mg/dL) 108 H 121 H 110 H (75-99) mg/dL Assessment and Plan Plan: Asseessment #1 Acute hypoxic respiratory failure secondary to fluid volume overload/ diastolic congestive heart failure and suspected polymicrobial aspiration pneumonia. The patient is currently on a combination of Fortaz and vancomycin. His subsequent chest x-rays showed improvement in the bilateral pulmonary infiltrates. He is currently on 3 L of oxygen by nasal cannula. On 03/24/2016, the patient remains clinically stable. History on oxygen at 3 L/ m nasal cannula. No signs of any respiratory distress. #2 Acute exacerbation of chronic obstructive pulmonary disease. #3 cerebrovascular accident. #4 Hyperlipidemia. #5 Hypertension. #6 Nonoliguric acute kidney injury mostly cardiorenal in nature with a component of obstructive uropathy. Renal function stable to last few days with creatinine near 1.6. Creatinine today is 1.4. Unclear as to what his baseline renal function is. #7 Urinary retention status post Seals catheter placement. He is nonoliguric. #8. Hypernatremia secondary to lack off oral water intake. Sodium level down to 152 today. Patient will have a PICC line inserted at a later stage today. PLAN The patient is gradually improving. We'll continue same treatment. Into the IV fluids. Repeat electrolytes including sodium level and renal function today. Repeat chest x-ray in a.m. We'll continue to follow.
[2016-03-24] MEDS: VANCOMYCIN 1,750 MG in SODIUM CHLORIDE 0.9% 250 ML IVPB SCH (16:26)
[2016-03-24 16:41] LABS: Glucose,Whole Blood 124 mg/dL (75-99)
--- NOTE | 2016-03-24 18:58 | P.PN ---
Subjective Principal diagnosis: Shortness of breath 66-year-old male status post stroke with persistent right-sided weakness presents from the [facility] for evaluation of having shortness of breath, fever. Was also having difficulties with nausea and about of emesis. At admission the patient was short of breath and was treated with BiPAP. He is now being treated with oxygen therapy by nasal cannula. He is a poor historian because of his stroke. Looks forward to going back to [facility] soon. That able to provide much more history. He is calm at this point in time. Is anxious to get back to his home and [place]. Believes it is less short of breath. Denies cough or hemoptysis. Energy level is somewhat poor. PICC line is in place without significant discomfort. Objective - Vital Signs Vital signs: Vital Signs Temp 97.9 F 03/24/16 16:00 Pulse 80 03/24/16 16:56 Resp 18 03/24/16 16:00 BP 143/89 03/24/16 16:00 Pulse Ox 92 L 03/24/16 16:00 Intake & Output 03/23/16 03/24/16 03/24/16 18:59 06:59 18:59 Intake Total 1744 1900 3400 Output Total 600 810 Balance 1144 1090 3400 Weight 120 kg 121 kg Intake: IV 1200 1000 0.9% NaCl with KCl 20 MeQ 1200 @50 mls/hr Dextrose 5% in Water 1, 900 000 ml @ 75 mls/hr IV . [id number] [facility] Rx#:[id number] cefTAZidime 2 gm In 100 Sodium Chloride 0.9% 100 ml @ 100 mls/hr IVPB Q12HR [facility] Rx#:[id number] Intake, IV Titration 575 100 Amount Dextrose 5% in Water 1, 325 000 ml @ 75 mls/hr IV . [id number] [facility] Rx#:[id number] Vancomycin 1,750 mg In 250 Sodium Chloride 0.9% 250 ml @ 125 mls/hr IVPB DAILY [facility] Rx#:[id number] cefTAZidime 2 gm In 100 Sodium Chloride 0.9% 100 ml @ 100 mls/hr IVPB Q12HR [facility] Rx#:[id number] Oral [id number] Output: Urine 600 810 Uretheral (Seals) 600 Other: Voiding Method Indwelling Catheter Indwelling Catheter Indwelling Catheter # Voids 1 # Bowel Movements 1 - Exam 66-year-old male who suffers from obesity seems comfortable becomes tearful HEENT: Anicteric conjunctiva are injected with crusting. Sclerae are also a bit red and injected nasal mucosa without bleeding. Oral cavity with poor dentition but no thrush is noted Neck: The neck is supple without significant lymphadenopathy or thyromegaly. Lungs: Symmetrical air entry with basilar crackles and expiratory wheezes are heard no keisha bronchial sounds Heart: Irregular with an audible S1 and S2 soft S4 no distinct murmur click or rub PMI was nondisplaced with no heave or thrill Abdomen: Obese Positive bowel sounds soft and nontender without palpable masses or organomegaly. There was no guarding or rebound. Extremities: The upper extremities show evidence of the multiple IV attempts and some ecchymosis. But no significant lesions are seen. The bilateral lower extremities have evidence of edema. No cervical in lesions are seen on the heels legs or buttocks Neuro: Awake oriented to person and place he knows that he has not yet [place]. He asked several times to go back. But does not have any other meaningful conversation except that he was cold and wanted to be covered - Labs CBC & Chem 7: 03/21/16 08:06 03/23/16 03:25 Labs: Abnormal Lab Results - Last 24 Hours (Table) 03/23/16 03/24/16 03/24/16 Range/Units 20:09 11:41 16:39 POC Glucose (mg/dL) 121 H 110 H 124 H (75-99) mg/dL Laboratory Results WBC 13.8 k/uL (3.8-10.6) H 03/21/16 08:06 RBC 5.63 m/uL (4.30-5.90) 03/21/16 08:06 Hgb 14.6 gm/dL (13.0-17.5) 03/21/16 08:06 Hct 50.2 % (39.0-53.0) 03/21/16 08:06 MCV 89.2 fL (80.0-100.0) 03/21/16 08:06 MCH 25.9 pg (25.0-35.0) 03/21/16 08:06 MCHC 29.1 g/dL (31.0-37.0) L 03/21/16 08:06 RDW 14.1 % (11.5-15.5) 03/21/16 08:06 Plt Count 269 k/uL (150-450) 03/21/16 08:06 Neutrophils % 81 % 03/21/16 08:06 Lymphocytes % 9 % 03/21/16 08:06 Monocytes % 6 % 03/21/16 08:06 Eosinophils % 2 % 03/21/16 08:06 Basophils % 1 % 03/21/16 08:06 Neutrophils # 11.2 k/uL (1.3-7.7) H 03/21/16 08:06 Lymphocytes # 1.2 k/uL (1.0-4.8) 03/21/16 08:06 Monocytes # 0.9 k/uL (0-1.0) 03/21/16 08:06 Eosinophils # 0.3 k/uL (0-0.7) 03/21/16 08:06 Basophils # 0.1 k/uL (0-0.2) 03/21/16 08:06 Hypochromasia Marked 03/21/16 08:06 PT 10.2 sec (9.0-12.0) 03/16/16 19:01 INR 1.0 (<1.1) 03/16/16 19:01 APTT 23.9 sec (22.0-30.0) 03/16/16 19:01 Sample Site rrad 03/17/16 08:49 ABG pH 7.53 (7.35-7.45) H 03/17/16 08:49 ABG pCO2 40 mmHg (35-45) 03/17/16 08:49 ABG pO2 64 mmHg (83-108) L 03/17/16 08:49 ABG HCO3 34 mmol/L (21-25) H 03/17/16 08:49 ABG Total CO2 35 mmol/L (19-24) H 03/17/16 08:49 ABG O2 Saturation 94.0 % (94-97) 03/17/16 08:49 ABG Base Excess 10.2 mmol/L 03/17/16 08:49 FiO2 44 % 03/17/16 08:49 Sodium 152 mmol/L (137-145) H 03/23/16 03:25 Potassium 3.5 mmol/L (3.5-5.1) 03/23/16 03:25 Chloride 111 mmol/L (98-107) H 03/23/16 03:25 Carbon Dioxide 28 mmol/L (22-30) 03/23/16 03:25 Anion Gap 13 mmol/L 03/23/16 03:25 BUN 24 mg/dL (9-20) H 03/23/16 03:25 Creatinine 1.40 mg/dL (0.66-1.25) H 03/23/16 03:25 Est GFR (MDRD) Af Amer >60 (>60 ml/min/1.73 sqM) 03/23/16 03:25 Est GFR (MDRD) Non-Af 50 (>60 ml/min/1.73 sqM) 03/23/16 03:25 Glucose 118 mg/dL (74-99) H 03/23/16 03:25 POC Glucose (mg/dL) 124 mg/dL (75-99) H 03/24/16 16:39 POC Glu [employer] KEN Tati Donnelly 03/24/16 16:[address] Glu mg/dL 126 mg/dL 03/16/16 23:56 Hemoglobin A1c 6.0 % (4.2-6.1) 03/16/16 23:56 Plasma Lactic Acid Ben 1.7 mmol/L (0.7-2.0) 03/16/16 23:56 Calcium 9.2 mg/dL (8.4-10.2) 03/23/16 03:25 Magnesium 2.8 mg/dL (1.6-2.3) H 03/23/16 03:25 Total Bilirubin 0.9 mg/dL (0.2-1.3) 03/16/16 19:01 AST 19 U/L (17-59) 03/16/16 19:01 ALT 20 U/L (21-72) L 03/16/16 19:01 Alkaline Phosphatase 87 U/L (38-126) 03/16/16 19:01 Total Creatine Kinase 48 U/L (55-170) L 03/17/16 06:59 CK-MB (CK-2) 0.2 ng/mL (0.0-2.4) 03/17/16 06:59 CK-MB (CK-2) Rel Index 0.4 03/17/16 06:59 Troponin I 0.025 ng/mL (0.000-0.034) 03/17/16 06:59 NT-Pro-B Natriuret Pep 1120 pg/mL 03/16/16 19:01 Total Protein 7.3 g/dL (6.3-8.2) 03/16/16 19:01 Albumin 4.0 g/dL (3.5-5.0) 03/16/16 19:01 Urine Color Yellow 03/16/16 19:01 Urine Appearance Clear (Clear) 03/16/16 19:01 Urine pH 6.0 (5.0-8.0) 03/16/16 19:01 Ur Specific [place] 1.013 (1.001-1.035) 03/16/16 19:01 Urine Protein Trace (Negative) H 03/16/16 19:01 Urine Glucose (UA) Negative (Negative) 03/16/16 19:01 Urine Ketones Negative (Negative) 03/16/16 19:01 Urine Blood Negative (Negative) 03/16/16 19:01 Urine Nitrate Negative (Negative) 03/16/16 19:01 Urine Bilirubin Negative (Negative) 03/16/16 19:01 Urine Urobilinogen <2.0 mg/dL (<2.0) 03/16/16 19:01 Ur Leukocyte Esterase Negative (Negative) 03/16/16 19:01 Vancomycin Trough 22.7 ug/mL 03/21/16 08:06 Gabapentin 25.9 ug/mL (2.0-12.0) H 03/16/16 23:56 Levetiracetam 13.9 ug/mL (3.0-60.0) 03/16/16 23:56 Microbiology 03/16/16 19:01 Blood Blood Culture - Final No Growth after 144 hours 03/16/16 19:36 Sputum Gram Stain - Final 03/16/16 19:36 Sputum Sputum Culture - Final Methicillin resist S. aureus Klebsiella pneumoniae Pseudomonas aeruginosa Enterobacter cloacae 03/16/16 19:01 Urine,Voided Urine Culture - Final Assessment and Plan (1) COPD (chronic obstructive pulmonary disease) Status: Acute (2) Pneumonia due to Gram-negative bacteria Narrative/Plan: 66-year-old male status post stroke presents to the emergency center with evidence of significant shortness of breath requiring BiPAP. With BiPAP therapy, antibiotic therapy and respiratory treatments he has now improved. There is evidence of abnormal troponins in the since seen by cardiology without thought to have evidence of any acute event. Was also possible concern of the aspiration pneumonia. It is noted there is a polymicrobial sputum showing evidence of MRSA, Klebsiella, Enterobacter and Pseudomonas. For treatment at this time vancomycin was ceftazidime will be effective for all the isolated pathogens. As he improves and gets ready to head back to extended care to complete a course of 2 weeks of therapy with vancomycin and ceftazidime. The be monitored closely due to his elevated creatinine. He does not have hyperkalemia. He has had an appropriate mattress at this time. He is having a bit of irritation to his eyes and some topical antibiotic therapy is given. Which is allowing improvement. Status: Acute (3) Conjunctivitis Status: Acute
[2016-03-24 20:56] LABS: Glucose,Whole Blood 116 mg/dL (75-99)
[2016-03-24] MEDS: DOCUSATE 100 MG CAP PO SCH (21:44)
[2016-03-24] MEDS: SENNOSIDES-DOCUSATE SODIUM 1 EACH TAB PO SCH (21:44)
[2016-03-24] MEDS: MELATONIN 3 MG TABLET PO SCH (21:48)
[2016-03-24] MEDS: SIMETHICONE 80 MG CHEWABLE PO SCH (21:49)
[2016-03-24] MEDS: PRAVASTATIN SODIUM 40 MG TAB PO SCH (21:49)
--- NOTE | 2016-03-24 23:36 | PN ---
DATE OF SERVICE: 03/23/2016 This patient is a 66-year-old, status post stroke. He came in with sepsis and acute hypoxic respiratory failure requiring BiPAP, and there was a high suspicion of aspiration pneumonia. Patient has klebsiella, enterobacter, pseudomonas as well as MRSA in the sputum, because of which patient was on vancomycin and Fortaz. Multiple consultants, including Infectious Disease, are following the patient. Patient is slowly improving. Patient is on ( ) patient sleeps most of the day and patient also has acute renal failure, which is also improving. Patient is on D5 water because of hypernatremia and hyperchloremia. Nephrology is managing that. Patient will go for a PICC line today for IV antibiotics. REVIEW OF SYSTEMS: Unable to obtain, as patient is excessively sleepy. Medications were reviewed. PHYSICAL EXAMINATION: VITAL SIGNS: Temperature 97.2, pulse of 88, respiratory rate of 18. Blood pressure is 123/75. Saturating at 95% on 3 L of oxygen by nasal cannula. GENERAL: Patient is excessively sleepy; unable to assess orientation. HEENT: Pupils are round and equally reacting to light. EOMI. No scleral icterus. No conjunctival pallor. Normocephalic, atraumatic. No pharyngeal erythema. No thyromegaly. CARDIOVASCULAR: S1 and S2 present. No murmurs, rubs, or gallops. PULMONARY: Bibasilar crackles are appreciated. ABDOMEN: Soft, nontender, nondistended, normoactive bowel sounds. No palpable organomegaly. MUSCULOSKELETAL: No joint swelling or deformity. EXTREMITIES: No cyanosis, clubbing, or pedal edema. NEUROLOGICAL: Patient is excessively sleepy; unable to assess orientation. SKIN: No rashes. LABORATORY DATA: Basic metabolic profile is abnormal for elevated sodium of 152, chloride of 111, BUN of 24, creatinine of 1.4, magnesium of 2.8. ASSESSMENT AND PLAN: 1. Sepsis, acute hypoxic respiratory failure secondary to aspiration pneumonia. Patient is off BiPAP. Patient is clinically improving at this point of time. 2. Acute exacerbation of chronic obstructive pulmonary disease. Patient is on systemic steroids and inhalational treatment. 3. Hyperlipidemia. 4. Hypertension. 5. Non-oliguric acute tubular necrosis as well as prerenal azotemia. IV fluids as mentioned above. 6. Urinary retention. 7. Hypernatremia due to intravascular volume depletion. PLAN: Continue with D5 water. Continue with antibiotics. Patient will go for PICC line. Repeat electrolytes and kidney function tomorrow.
--- NOTE | 2016-03-24 23:40 | PN ---
DATE OF SERVICE: 03/24/2016 This patient is a 66-year-old, status post stroke. He came in with sepsis and acute hypoxic respiratory failure requiring BiPAP, and there was a high suspicion of aspiration pneumonia. Patient has klebsiella, enterobacter, pseudomonas as well as MRSA in the sputum, because of which patient was on vancomycin and Fortaz. Multiple consultants, including Infectious Disease, are following the patient. Patient is slowly improving. Patient is on ( ) patient sleeps most of the day and patient also has acute renal failure, which is also improving. Patient is on D5 water because of hypernatremia and hyperchloremia. Nephrology is managing that. Patient will go for a PICC line today for IV antibiotics. REVIEW OF SYSTEMS: Unable to obtain, as patient is excessively sleepy. Medications were reviewed. PHYSICAL EXAMINATION: VITAL SIGNS: Temperature 97.9, pulse of 80, respiratory rate of 18. Blood pressure is 143/89. Saturating at 92% on 3 L of oxygen by nasal cannula. GENERAL: Patient is excessively drowsy; unable to assess orientation. HEENT: Pupils are round and equally reacting to light. EOMI. No scleral icterus. No conjunctival pallor. Normocephalic, atraumatic. No pharyngeal erythema. No thyromegaly. CARDIOVASCULAR: S1 and S2 present. No murmurs, rubs, or gallops. PULMONARY: Patient continues to have bibasilar crackles. ABDOMEN: Soft, nontender, nondistended, normoactive bowel sounds. No palpable organomegaly. MUSCULOSKELETAL: No joint swelling or deformity. EXTREMITIES: No cyanosis, clubbing, or pedal edema. NEUROLOGICAL: Patient is excessively sleepy; unable to assess orientation. SKIN: No rashes. LABORATORY DATA: None available from today. ASSESSMENT AND PLAN: 1. Sepsis, acute hypoxic respiratory failure secondary to aspiration pneumonia. Patient is off BiPAP. Patient is clinically improving at this point of time. 2. Acute exacerbation of chronic obstructive pulmonary disease. Patient is on systemic steroids and inhalational treatment. 3. Hyperlipidemia. 4. Hypertension. 5. Non-oliguric acute tubular necrosis as well as prerenal azotemia. IV fluids as mentioned above. 6. Urinary retention. 7. Hypernatremia due to intravascular volume depletion. PLAN: Continue with IV fluids. Monitor kidney function and electrolytes tomorrow. Continue with antibiotics. PT and OT evaluation. Possibility of discharge in a day or two to subacute rehab.
[2016-03-25] MEDS: ACETAMINOPHEN TAB 325 MG TAB PO PRN (02:32)
[2016-03-25 06:18] LABS: Glucose,Whole Blood 129 mg/dL (75-99)
[2016-03-25] MEDS: INSULIN LISPRO (humaLOG) 300 UNIT/3 ML VIAL SQ SCH ×2 (06:32→12:03)
[2016-03-25 06:50] LABS: CH 25.9; CHCM 30.6; HGB 13.3 gm/dL (13.0-17.5); Hypochromasia Moderate; MCH 26.3 pg (25.0-35.0); MCHC 30.9 g/dL (31.0-37.0); Mean Platelet Volume 7.6; RBC 5.05 m/uL (4.30-5.90); RDW 13.9 % (11.5-15.5); WBC 9.6 k/uL (3.8-10.6)
[2016-03-25] MEDS: IPRATROPIUM-ALBUTEROL 3 ML NEB INHALATION SCH ×3 (07:39→15:53)
--- NOTE | 2016-03-25 07:39 | XR ---
EXAMINATION TYPE: XR chest 1V DATE OF EXAM: 03/25/2016 7:23 AM COMPARISON: 03/23/2016 HISTORY: CHF, pneumonia TECHNIQUE: Single frontal view of the chest is obtained. FINDINGS: There is no focal air space opacity, pleural effusion, or pneumothorax seen. The cardiac silhouette size is within normal limits. The osseous structures are intact. Heart is enlarged. Calc ified lymph nodes seen in the left hilum. IMPRESSION: 1. No definite acute process
[2016-03-25] MEDS: SYMBICORT 160-4.5 MCG INHALER INHALATION SCH (07:40)
[2016-03-25 08:12] LABS: Anion Gap 12 mmol/L; Blood Urea Nitrogen 13 mg/dL (9-20); Calcium 8.6 mg/dL (8.4-10.2); Carbon Dioxide 26 mmol/L (22-30); Chloride 108 mmol/L (98-107); Glucose 109 mg/dL (74-99); Non-African American GFR(MDRD) >60 (>60 ml/min/1.73 sqM); Potassium 3.2 mmol/L (3.5-5.1); Sodium 146 mmol/L (137-145)
[2016-03-25] MEDS: levETIRAcetam 250 MG TAB PO SCH ×2 (08:41→16:27)
[2016-03-25] MEDS: METOPROLOL SUCCINATE (ER) 50 MG TAB.ER.24H PO SCH (08:41)
[2016-03-25] MEDS: TAMSULOSIN 0.4 MG CAP.ER.24H PO SCH (08:41)
[2016-03-25] MEDS: ISOSORBIDE MONONITRATE ER 30 MG TAB.ER.24H PO SCH (08:41)
[2016-03-25] MEDS: DULoxetine HCL 30 MG CAPSULE.DR PO SCH (08:41)
[2016-03-25] MEDS: amLODIPine 10 MG TAB PO SCH (08:41)
[2016-03-25] MEDS: PANTOPRAZOLE 40 MG TABLET PO SCH (08:42)
[2016-03-25] MEDS: PARoxetine 10 MG TAB PO SCH (08:42)
[2016-03-25] MEDS: BACITRACIN/POLYMYX 500-10,000 UNIT/GM OPHTH OINT 3.5 GM TUBE BOTH EYES SCH ×2 (08:42→13:51)
[2016-03-25] MEDS: LACTULOSE 20 GM/30 ML CUP PO SCH (08:42)
[2016-03-25] MEDS: FLUTICASONE 50MCG/SPRAY NASAL 16GM EA NOSTRIL SCH (08:42)
[2016-03-25] MEDS: POTASSIUM CHLORIDE ER 20 MEQ TAB.ER PO SCH ×2 (08:46→10:29)
--- NOTE | 2016-03-25 11:32 | P.PN ---
Subjective 58-year-old male status post stroke presents to the emergency center with evidence of significant shortness of breath requiring BiPAP. With BiPAP therapy, antibiotic therapy and respiratory treatments he has now improved. There is evidence of abnormal troponins in the since seen by cardiology without thought to have evidence of any acute event. There was also possible concern of the aspiration pneumonia. It is noted there is a polymicrobial sputum showing evidence of MRSA, Klebsiella, Enterobacter and Pseudomonas. Based on this, an infectious disease consultation was obtained and the patient was started on a combination of vancomycin and Fortaz. Clinically the patient is doing better. Today's chest x-ray shows further improvement in the left lower base aeration. The patient is currently on excision 2 by nasal cannula and his pulse oximetry 94%. No fever. No chills. He is hemodynamically stable. He has no significant leukocytosis. The sodium level is improving. The patient is also recovering from his acute kidney injury and creatinine is progressively on the decline. On 03/24/2016 the patient is being seen in follow-up. His resting comfortably in bed. PICC line was inserted yesterday. He is on D5 water at the rate of 75 mL an hour. He is still the same antibiotic coverage including combination of Fortaz and vancomycin. No other significant events overnight otherwise On 03/25/2016, the patient is resting comfortably in bed. Chest x-ray was repeated and it does not show any acute cardiac pulmonary process and that is no evidence of any ongoing pneumonia at this point. The patient remains on a combination of Fortaz and vancomycin. His sodium level has also improved. No other significant events overnight for now. Objective - Vital Signs Vital signs: Vital Signs Temp 97.6 F 03/25/16 08:00 Pulse 71 03/25/16 11:26 Resp 18 03/25/16 08:00 BP 140/72 03/25/16 08:00 Pulse Ox 95 03/25/16 08:00 Intake & Output 03/24/16 03/25/16 03/25/16 18:59 06:59 18:59 Intake Total 3400 220 237 Output Total 1730 Balance 3400 -1510 237 Weight 124 kg Intake: IV 1000 Dextrose 5% in Water 1, 900 000 ml @ 75 mls/hr IV . [id number] ONE Rx#:[id number] cefTAZidime 2 gm In 100 Sodium Chloride 0.9% 100 ml @ 100 mls/hr IVPB Q12HR [facility] Rx#:[id number] Oral 2400 220 237 Output: Urine 1730 Other: Voiding Method Indwelling Catheter Indwelling Catheter Indwelling Catheter # Voids 1 # Bowel Movements 1 1 - Exam Obese, comfortable, not in acute distress, communicating and verbal.Neck was supple and without jugular venous distension, thyromegaly, or carotid bruits. Carotids were easily palpable bilaterally. There was no adenopathy.Head exam was generally normal. There was no scleral icterus or corneal arcus. Mucous membranes were moist. Lung sounds are diminished bilaterally otherwise clear.Cardiac exam revealed the PMI to be normally situated and sized. The rhythm was regular and no extrasystoles were noted during several minutes of auscultation. The first and second heart sounds were normal and physiologic splitting of the second heart sound was noted. There were no murmurs, rubs, clicks, or gallops.Abdominal exam revealed normal bowel sounds. The abdomen was soft, non-tender, and without masses, organomegaly, or appreciable enlargement of the abdominal aorta.Examination of the extremities revealed easily palpable radial, femoral and pedal pulses. There was no cyanosis, clubbing or edema. - Labs CBC & Chem 7: 03/25/16 06:21 03/25/16 06:21 Labs: Abnormal Lab Results - Last 24 Hours (Table) 03/24/16 03/24/16 03/24/16 Range/Units 11:41 16:39 20:44 MCHC (31.0-37.0) g/dL Sodium (137-145) mmol/L Potassium (3.5-5.1) mmol/L Chloride (98-107) mmol/L Glucose (74-99) mg/dL POC Glucose (mg/dL) 110 H 124 H 116 H (75-99) mg/dL 03/25/16 03/25/16 03/25/16 Range/Units 06:16 06:21 06:21 MCHC 30.9 L (31.0-37.0) g/dL Sodium 146 H (137-145) mmol/L Potassium 3.2 L (3.5-5.1) mmol/L Chloride 108 H (98-107) mmol/L Glucose 109 H (74-99) mg/dL POC Glucose (mg/dL) 129 H (75-99) mg/dL Assessment and Plan Plan: Asseessment #1 Acute hypoxic respiratory failure secondary to fluid volume overload/ diastolic congestive heart failure and suspected polymicrobial aspiration pneumonia. The patient is currently on a combination of Fortaz and vancomycin. His subsequent chest x-rays showed improvement in the bilateral pulmonary infiltrates. He is currently on 3 L of oxygen by nasal cannula. On 03/24/2016, the patient remains clinically stable. History on oxygen at 3 L/ m nasal cannula. No signs of any respiratory distress. On 03/25/2016, the patient's x-ray shows no acute pulmonary process and his pneumonia essentially recovered no signs of any respiratory distress. #2 Acute exacerbation of chronic obstructive pulmonary disease. #3 cerebrovascular accident. #4 Hyperlipidemia. #5 Hypertension. #6 Nonoliguric acute kidney injury mostly cardiorenal in nature with a component of obstructive uropathy. The function is improving creatinine is down to 1.1. #7 Urinary retention status post Seals catheter placement. He is nonoliguric. #8. Hypernatremia secondary to lack off oral water intake. The patient was treated with D5 water and the sodium level is improved is down to 147. PLAN Condition is stable. Renal function is improved. Sodium level is improving. His pneumonia essentially clear. Pulmonary were essentially sign off for now. Would recommend completing 1 week antibiotic course per IDs choice. Aspiration precautions. Discharge planning is in progress.
[2016-03-25 11:51] LABS: Glucose,Whole Blood 95 mg/dL (75-99)
[2016-03-25 12:57] VITALS: BP 150/78; PULSE 84; TEMP 98.2
--- NOTE | 2016-03-25 13:01 | DS ---
DATE OF ADMISSION: 03/16/2016 DATE OF DISCHARGE: The patient is admitted with acute hypoxic respiratory failure secondary to aspiration pneumonia. Patient was evaluated by speech therapy, please refer to their documentation for modified diet. Patient was on vancomycin and Fortaz. The patient's sputum is polymicrobial including Klebsiella, Enterobacter, Pseudomonas and MRSA. The patient received PICC line and Dr. Ashton is recommending 2 weeks of IV antibiotic therapy in the form of vancomycin and ceftazidime. The patient was quite dry and received D5 water here because of hypernatremia and hyperchloremia. Patient's Lasix was discontinued. Patient may need some Lasix upon discharge the decision is to be made. The patient when he came in did have acute renal failure, which improved at this point of time. Patient has normal systolic function, but may have diastolic dysfunction. Patient had urinary retention, because of which he had a Seals catheter. Will discontinue the Seals catheter and see if he urinates. If he does not, will go ahead and put Seals catheter back on. Patient is on clonazepam and [place], which he is not requiring here. Patient was excessively sleepy because of which these medications were discontinued. Lasix dose to be decided. Patient was seen and examined on the day of discharge. Vitals are stable. PHYSICAL EXAMINATION: GENERAL: The patient is much more alert today, oriented times almost close to 3. Patient is mostly bedbound, morbidly obese. HEENT: Pupils are round and equally reacting to light. EOMI. No scleral icterus. No conjunctival pallor. Normocephalic, atraumatic. No pharyngeal erythema. No thyromegaly. CARDIOVASCULAR: S1 and S2 present. No murmurs, rubs, or gallops. PULMONARY: Chest is clear to auscultation, no wheezing or crackles. ABDOMEN: Soft, nontender, nondistended, normoactive bowel sounds. No palpable organomegaly. MUSCULOSKELETAL: No joint swelling or deformity. EXTREMITIES: No cyanosis, clubbing, or pedal edema. NEUROLOGICAL: No new focal neurological deficits were appreciated. SKIN: No rashes. FINAL DIAGNOSES: 1. Sepsis secondary to aspiration pneumonia, which improved. 2. Acute exacerbation of chronic obstructive pulmonary disease. 3. Hyperlipidemia . 4. Hypertension. 5. Acute on chronic hypercapnic respiratory failure. 6. Non-oliguric acute tubular necrosis ( ) prerenal azotemia. 7. Urinary retention. Management as mentioned above. 8. Hypernatremia due to intravascular volume depletion. 9. Possible congestive heart failure, chronic diastolic dysfunction without any acute exacerbation. 10. Patient is ( ) at this point of time. Chest x-ray did show improvement. Patient will be discharged on IV antibiotics as mentioned above back to rehab. Activity as tolerated. Patient will follow with Dr. Ki Beltran in [facility]. Dietary modifications as per speech therapy. Acute renal failure, which improved, secondary to intravascular volume depletion due to excessive diuresis. DISCHARGE DIET: Cardiac diet. Activity as tolerated. I spent greater than 35 minutes in total discharge process.
--- NOTE | 2016-03-25 13:47 | P.PN ---
Subjective This is a 66-year-old male, [facility] resident with dense right hemiplegia seen in consultation because of acute kidney injury secondary multiple causes including urinary retention, prerenal from pneumonia from aspiration, as well an element of congestive heart failure and prerenal. Additionally he had hypernatremia deemed to be from decreased intake as he is hemiplegic and might have been unable to drink free water as well as from acute kidney injury causing decreased osmolar regulation. He was initially given Lasix, needed BiPAP. and then started on D5W as of yesterday. His Lasix was on hold because of the hypernatremia at home he takes 80 mg of Lasix twice a day. This morning is denying any complaints. Seems to be depressed, but improved. He is not eating much. 24-hour intake is 3620 and output is 1730. He is known with COPD and there was a possibility of aspiration pneumonia as well. He is known with right-sided CVA and hypertension. He is mostly bedridden Objective - Vital Signs Vital signs: Vital Signs Temp 98.2 F 03/25/16 12:00 Pulse 84 03/25/16 12:00 Resp 18 03/25/16 12:00 BP 150/78 03/25/16 12:00 Pulse Ox 94 L 03/25/16 12:00 Intake & Output 03/24/16 03/25/16 03/25/16 18:59 06:59 18:59 Intake Total 3400 220 474 Output Total 1730 300 Balance 3400 -1510 174 Weight 124 kg Intake: IV 1000 Dextrose 5% in Water 1, 900 000 ml @ 75 mls/hr IV . [id number] ONE Rx#:[id number] cefTAZidime 2 gm In 100 Sodium Chloride 0.9% 100 ml @ 100 mls/hr IVPB Q12HR [facility] Rx#:[id number] Oral 2400 220 474 Output: Urine 1730 300 Other: Voiding Method Indwelling Catheter Indwelling Catheter Indwelling Catheter # Voids 1 # Bowel Movements 1 1 On examination he remains bedridden. He is awake alert oriented wants to be discharged. A chin exam no JVP neck is supple no facial asymmetry. Lungs clear to auscultation good air entry bilaterally Heart sounds are unremarkable for any murmur rub gallop. Abdomen soft nontender no organomegaly status masses Extreme exam was trace edema. Neurologically awake alert oriented but somewhat slow and dense right hemiplegia. This is chronically present and he is bedridden - Labs CBC & Chem 7: 03/25/16 06:21 03/25/16 06:21 Labs: Abnormal Lab Results - Last 24 Hours (Table) 03/24/16 03/24/16 03/25/16 Range/Units 16:39 20:44 06:16 MCHC (31.0-37.0) g/dL Sodium (137-145) mmol/L Potassium (3.5-5.1) mmol/L Chloride (98-107) mmol/L Glucose (74-99) mg/dL POC Glucose (mg/dL) 124 H 116 H 129 H (75-99) mg/dL 03/25/16 03/25/16 Range/Units 06:21 06:21 MCHC 30.9 L (31.0-37.0) g/dL Sodium 146 H (137-145) mmol/L Potassium 3.2 L (3.5-5.1) mmol/L Chloride 108 H (98-107) mmol/L Glucose 109 H (74-99) mg/dL POC Glucose (mg/dL) (75-99) mg/dL Assessment and Plan Plan: Impression. 1. Acute kidney injury second obstructive nephropathy additionally congestive heart failure and cardiorenal syndrome and. Creatinine improved to 1.1 today dated 03/25/2016 from 1.4. Baseline creatinine unavailable prior to this admission. 2. Dense chronic right hemiplegia 3. Hypernatremia secondary to decreased water intake improving on D5W with sodium down to 146 today, from 152 . Recommendation. Patient can be discharged. Regarding Lasix he can be resumed at 20 IDT. He will need to be followed up closely with renal panel tomorrow and in 3 days' time. He'll need to be seen in my office in the next 24-48 hours. If he cannot come to the office because he is a [facility] patient. His primary physician and [facility] needs to communicate to us with urine output and blood pressures and edema and clinical findings as well as labs. He can help via phone. Regarding his Norvasc, suggest discontinuation of this because of the potential of causing edema.
[2016-03-25] MEDS ORDERED: FUROSEMIDE 20 MG TAB PO SCH (16:00)
[2016-03-25] MEDS: VANCOMYCIN 1,750 MG in SODIUM CHLORIDE 0.9% 250 ML IVPB SCH (16:24)
--- NOTE | 2016-03-25 22:39 | P.PN ---
Subjective Principal diagnosis: Shortness of breath 66-year-old male status post stroke with persistent right-sided weakness presents from the [facility] for evaluation of having shortness of breath, fever. Was also having difficulties with nausea and about of emesis. At admission the patient was short of breath and was treated with BiPAP. He is now being treated with oxygen therapy by nasal cannula. He is a poor historian because of his stroke. Looks forward to going back to [facility] soon. That able to provide much more history. He is calm at this point in time. Is anxious to get back to his home and [place]. Believes it is less short of breath. Denies cough or hemoptysis. Energy level is somewhat poor. PICC line is in place without significant discomfort. Objective - Vital Signs Vital signs: Vital Signs Temp 98.2 F 03/25/16 12:00 Pulse 84 03/25/16 12:00 Resp 18 03/25/16 12:00 BP 150/78 03/25/16 12:00 Pulse Ox 94 L 03/25/16 12:00 Intake & Output 03/25/16 03/25/16 03/26/16 06:59 18:59 06:59 Intake Total 220 474 Output Total 1730 300 Balance -1510 174 Weight 124 kg Intake: Oral 220 474 Output: Urine 1730 300 Other: Voiding Method Indwelling Catheter Indwelling Catheter # Voids 1 # Bowel Movements 1 1 - Exam 66-year-old male who suffers from obesity seems comfortable becomes tearful HEENT: Anicteric conjunctiva are injected with improvement of the crusting. Sclerae are also a bit red and injected nasal mucosa without bleeding. Oral cavity with poor dentition but no thrush is noted Neck: The neck is supple without significant lymphadenopathy or thyromegaly. Lungs: Symmetrical air entry with basilar crackles and expiratory wheezes are heard no keisha bronchial sounds Heart: Irregular with an audible S1 and S2 soft S4 no distinct murmur click or rub PMI was nondisplaced with no heave or thrill Abdomen: Obese Positive bowel sounds soft and nontender without palpable masses or organomegaly. There was no guarding or rebound. Extremities: The upper extremities show evidence of the multiple IV attempts and some ecchymosis. But no significant lesions are seen. The bilateral lower extremities have evidence of edema. No cervical in lesions are seen on the heels legs or buttocks Neuro: Awake oriented to person and place he knows that he has not yet [place]. He asked several times to go back. But does not have any other meaningful conversation except that he was cold and wanted to be covered - Labs CBC & Chem 7: 03/25/16 06:21 03/25/16 06:21 Labs: Abnormal Lab Results - Last 24 Hours (Table) 03/25/16 03/25/16 03/25/16 Range/Units 06:16 06:21 06:21 MCHC 30.9 L (31.0-37.0) g/dL Sodium 146 H (137-145) mmol/L Potassium 3.2 L (3.5-5.1) mmol/L Chloride 108 H (98-107) mmol/L Glucose 109 H (74-99) mg/dL POC Glucose (mg/dL) 129 H (75-99) mg/dL Laboratory Results WBC 9.6 k/uL (3.8-10.6) 03/25/16 06:21 RBC 5.05 m/uL (4.30-5.90) 03/25/16 06:21 Hgb 13.3 gm/dL (13.0-17.5) 03/25/16 06:21 Hct 43.0 % (39.0-53.0) 03/25/16 06:21 MCV 85.0 fL (80.0-100.0) 03/25/16 06:21 MCH 26.3 pg (25.0-35.0) 03/25/16 06:21 MCHC 30.9 g/dL (31.0-37.0) L 03/25/16 06:21 RDW 13.9 % (11.5-15.5) 03/25/16 06:21 Plt Count 182 k/uL (150-450) 03/25/16 06:21 Neutrophils % 81 % 03/21/16 08:06 Lymphocytes % 9 % 03/21/16 08:06 Monocytes % 6 % 03/21/16 08:06 Eosinophils % 2 % 03/21/16 08:06 Basophils % 1 % 03/21/16 08:06 Neutrophils # 11.2 k/uL (1.3-7.7) H 03/21/16 08:06 Lymphocytes # 1.2 k/uL (1.0-4.8) 03/21/16 08:06 Monocytes # 0.9 k/uL (0-1.0) 03/21/16 08:06 Eosinophils # 0.3 k/uL (0-0.7) 03/21/16 08:06 Basophils # 0.1 k/uL (0-0.2) 03/21/16 08:06 Hypochromasia Moderate 03/25/16 06:21 PT 10.2 sec (9.0-12.0) 03/16/16 19:01 INR 1.0 (<1.1) 03/16/16 19:01 APTT 23.9 sec (22.0-30.0) 03/16/16 19:01 Sample Site rrad 03/17/16 08:49 ABG pH 7.53 (7.35-7.45) H 03/17/16 08:49 ABG pCO2 40 mmHg (35-45) 03/17/16 08:49 ABG pO2 64 mmHg (83-108) L 03/17/16 08:49 ABG HCO3 34 mmol/L (21-25) H 03/17/16 08:49 ABG Total CO2 35 mmol/L (19-24) H 03/17/16 08:49 ABG O2 Saturation 94.0 % (94-97) 03/17/16 08:49 ABG Base Excess 10.2 mmol/L 03/17/16 08:49 FiO2 44 % 03/17/16 08:49 Sodium 146 mmol/L (137-145) H 03/25/16 06:21 Potassium 3.2 mmol/L (3.5-5.1) L 03/25/16 06:21 Chloride 108 mmol/L (98-107) H 03/25/16 06:21 Carbon Dioxide 26 mmol/L (22-30) 03/25/16 06:21 Anion Gap 12 mmol/L 03/25/16 06:21 BUN 13 mg/dL (9-20) 03/25/16 06:21 Creatinine 1.14 mg/dL (0.66-1.25) 03/25/16 06:21 Est GFR (MDRD) Af Amer >60 (>60 ml/min/1.73 sqM) 03/25/16 06:21 Est GFR (MDRD) Non-Af >60 (>60 ml/min/1.73 sqM) 03/25/16 06:21 Glucose 109 mg/dL (74-99) H 03/25/16 06:21 POC Glucose (mg/dL) 95 mg/dL (75-99) 03/25/16 11:50 POC Glu Veneer Glue Spreader Toshia Boogie 03/25/16 11:[address] Glu mg/dL 126 mg/dL 03/16/16 23:56 Hemoglobin A1c 6.0 % (4.2-6.1) 03/16/16 23:56 Plasma Lactic Acid Ben 1.7 mmol/L (0.7-2.0) 03/16/16 23:56 Calcium 8.6 mg/dL (8.4-10.2) 03/25/16 06:21 Magnesium 2.8 mg/dL (1.6-2.3) H 03/23/16 03:25 Total Bilirubin 0.9 mg/dL (0.2-1.3) 03/16/16 19:01 AST 19 U/L (17-59) 03/16/16 19:01 ALT 20 U/L (21-72) L 03/16/16 19:01 Alkaline Phosphatase 87 U/L (38-126) 03/16/16 19:01 Total Creatine Kinase 48 U/L (55-170) L 03/17/16 06:59 CK-MB (CK-2) 0.2 ng/mL (0.0-2.4) 03/17/16 06:59 CK-MB (CK-2) Rel Index 0.4 03/17/16 06:59 Troponin I 0.025 ng/mL (0.000-0.034) 03/17/16 06:59 NT-Pro-B Natriuret Pep 1120 pg/mL 03/16/16 19:01 Total Protein 7.3 g/dL (6.3-8.2) 03/16/16 19:01 Albumin 4.0 g/dL (3.5-5.0) 03/16/16 19:01 Urine Color Yellow 03/16/16 19:01 Urine Appearance Clear (Clear) 03/16/16 19:01 Urine pH 6.0 (5.0-8.0) 03/16/16 19:01 Ur Specific [place] 1.013 (1.001-1.035) 03/16/16 19:01 Urine Protein Trace (Negative) H 03/16/16 19:01 Urine Glucose (UA) Negative (Negative) 03/16/16 19:01 Urine Ketones Negative (Negative) 03/16/16 19:01 Urine Blood Negative (Negative) 03/16/16 19:01 Urine Nitrate Negative (Negative) 03/16/16 19:01 Urine Bilirubin Negative (Negative) 03/16/16 19:01 Urine Urobilinogen <2.0 mg/dL (<2.0) 03/16/16 19:01 Ur Leukocyte Esterase Negative (Negative) 03/16/16 19:01 Vancomycin Trough 22.7 ug/mL 03/21/16 08:06 Gabapentin 25.9 ug/mL (2.0-12.0) H 03/16/16 23:56 Levetiracetam 13.9 ug/mL (3.0-60.0) 03/16/16 23:56 C. difficile (EIA) Intrp Negative (Negative) 03/25/16 01:20 Microbiology 03/16/16 19:01 Blood Blood Culture - Final No Growth after 144 hours 03/16/16 19:36 Sputum Gram Stain - Final 03/16/16 19:36 Sputum Sputum Culture - Final Methicillin resist S. aureus Klebsiella pneumoniae Pseudomonas aeruginosa Enterobacter cloacae 03/16/16 19:01 Urine,Voided Urine Culture - Final Assessment and Plan (1) COPD (chronic obstructive pulmonary disease) Status: Acute (2) Pneumonia due to Gram-negative bacteria Narrative/Plan: 66-year-old male status post stroke presents to the emergency center with evidence of significant shortness of breath requiring BiPAP. With BiPAP therapy, antibiotic therapy and respiratory treatments he has now improved. There is evidence of abnormal troponins in the since seen by cardiology without thought to have evidence of any acute event. Was also possible concern of the aspiration pneumonia. It is noted there is a polymicrobial sputum showing evidence of MRSA, Klebsiella, Enterobacter and Pseudomonas. For treatment at this time vancomycin was ceftazidime will be effective for all the isolated pathogens. As he improves and gets ready to head back to extended care to complete a course of 2 weeks of therapy with vancomycin and ceftazidime. The be monitored closely due to his elevated creatinine. He does not have hyperkalemia. He has had an appropriate mattress at this time. He is having a bit of irritation to his eyes and some topical antibiotic therapy is given. Which is allowing improvement. Status: Acute (3) Conjunctivitis Status: Acute
== END 2016-03-25 17:20 | DRG 871 ==
LOC: EC 18:38 → 6SEL 20:48
PROVIDERS: ADMIT Internal Medicine; ATTEND Internal Medicine
PROC: 02HV33Z Insertion of Infusion Device into Superior Vena Cava, Percutaneous Approach (ICD-10-PCS; principal; 2016-03-23 14:37)
PROC: B548ZZA Ultrasonography of Superior Vena Cava, Guidance (ICD-10-PCS; 2016-03-23 14:37)
DX: A41.9 Sepsis, unspecified organism (principal); J69.0 Pneumonitis due to inhalation of food and vomit; N17.0 Acute kidney failure with tubular necrosis; J96.21 Acute and chronic respiratory failure with hypoxia; I50.33 Acute on chronic diastolic (congestive) heart failure; E87.0 Hyperosmolality and hypernatremia; G93.41 Metabolic encephalopathy; J15.0 Pneumonia due to Klebsiella pneumoniae; J15.1 Pneumonia due to Pseudomonas; J15.212 Pneumonia due to Methicillin resistant Staphylococcus aureus; J44.1 Chronic obstructive pulmonary disease with (acute) exacerbation; I69.351 Hemiplegia and hemiparesis following cerebral infarction affecting right dominant side; J44.0 Chronic obstructive pulmonary disease with (acute) lower respiratory infection; Z68.41 Body mass index [BMI] 40.0-44.9, adult; I11.0 Hypertensive heart disease with heart failure; E66.01 Morbid (severe) obesity due to excess calories; E87.8 Other disorders of electrolyte and fluid balance, not elsewhere classified; E83.41 Hypermagnesemia; G62.9 Polyneuropathy, unspecified; F32.9 Major depressive disorder, single episode, unspecified; E78.5 Hyperlipidemia, unspecified; M19.90 Unspecified osteoarthritis, unspecified site; E86.0 Dehydration; E87.6 Hypokalemia; K21.9 Gastro-esophageal reflux disease without esophagitis; N13.9 Obstructive and reflux uropathy, unspecified; H10.9 Unspecified conjunctivitis; I77.810 Thoracic aortic ectasia; T50.2X5A Adverse effect of carbonic-anhydrase inhibitors, benzothiadiazides and other diuretics, initial encounter; Z22.322 Carrier or suspected carrier of Methicillin resistant Staphylococcus aureus; Z74.01 Bed confinement status; Z87.891 Personal history of nicotine dependence; Z79.82 Long term (current) use of aspirin; Z79.891 Long term (current) use of opiate analgesic; Z79.52 Long term (current) use of systemic steroids; Z79.899 Other long term (current) drug therapy
CPT/HCPCS: 36415; 36569; 71010; 76937; 77001; 80048; 80053; 80171; 80177; 80202; 80299; 81003; 82550; 82553; 82805; 83036; 83605; 83735; 83880; 84132; 84484; 85025; 85027; 85610; 85730; 87040; 87070; 87077; 87086; 87186; 87205; 87324; 93005; 93306; 94640; 94660; 94760; 96361; 96365; 96375; 99285